=== PATIENT | female | born 1950 | race Caucasian/White ===

== ENCOUNTER → 2023-06-29 12:43 | Outpatient (REF) | payer MEDICARE, OTHER, SELFPAY | LOC: RAD 12:43 | PROVIDERS: ATTENDING PHYSICIAN Surgery Vascular Surgery; REFERRING PHYSICIAN Specialist | DX: Z01.818 Encounter for other preprocedural examination (principal) | CPT/HCPCS: 93985 ==

== ENCOUNTER 2023-07-08 09:33 | Day surgery (SDC) | payer MEDICARE, OTHER, SELFPAY ==
[2023-07-08] VITALS (12 sets, daily range): BP systolic 103–131; BP diastolic 55–82; BMI 28.0
[2023-07-08 10:12] LABS: INR 0.95; PT 12.6 Sec (11.4-14.6)
[2023-07-08 10:13] LABS: APTT 27.4 Sec (23.4-35.0)
[2023-07-08] MEDS: PERIDEX 0.12% ORAL RINSE 15 ML PO (10:36)
[2023-07-08] MEDS: BACTROBAN NASAL 1 GRAM NASAL (10:37)
[2023-07-08 10:43] LABS: Hematocrit 37.2 % (37.0-47.0); Mean Corp Hgb Conc. 32.3 g/dL (33.0-37.0); Mean Corpuscular Hgb 29.3 pg (27.0-31.0); Mean Corpuscular Volume 90.7 fL (81.0-99.0); Platelet Count 254 10^3/uL (130-400); Red Cell Dist. Width 14.3 % (11.5-14.5); White Blood Cell Count 5.9 10^3/uL (4.8-10.8)
[2023-07-08 10:52] LABS: Blood Urea Nitrogen 30 mg/dl (7-17); Calcium 9.9 mg/dl (8.4-10.2); Carbon Dioxide 29 mmol/L (22-30); Chloride 95 mmol/L (98-107); Estimated Creatinine Clearance 11 ml/min; Glucose 96 mg/dl (70-99); Potassium 4.2 mmol/L (3.5-5.1); Sodium 133 mmol/L (135-145); eGFR 15.01
--- NOTE | 2023-07-08 12:00 | W.SUR.PREOP ---
Pre-Operative Surgical Note
-
I have examined this patient prior to the performance of the scheduled procedure.
The patient's condition is unchanged from the time of the current History and
Physical and the patient is able to undergo the scheduled procedure.
--- NOTE | 2023-07-08 13:22 | W.SUR.POST ---
Surgical Immediate Post Op
Note
Pre Op Diagnosis: ESRD
Post Op Diagnosis: ESRD
Procedure Performed: LUE brachiocephalic av fistula creation
Primary Surgeon: Abdirizak
Assist: Maryann PERALTA
Anesthesia: LMA
Estimated Blood Loss: 5cc
Fluids: see anesthesia flow sheet
Drains/Shunts: none
Specimens/Cultures: none
Doppler/Duplex/Angio (Y/N): Y
Complications: none
Operative Findings: Palpable thrill
[2023-07-08] MEDS: DILAUDID 0.25 MG IV (14:07)
--- NOTE | 2023-07-08 16:06 | OR.RPT ---
Operative Report
Operative Report
PROCEDURE DATE: 07/08/2023
Preoperative diagnosis: End-stage renal disease on hemodialysis
Postoperative diagnosis: Same
Procedure: Left upper extremity brachiocephalic arteriovenous fistula creation
Surgeon: Adbirizak
Sole Leveling Machine Operator: RENZO Wolf required for all aspects of procedure including assistance with traction/countertraction, following of suture line, assistance with closure.
Complications: None
Anesthesia: General
Indications for procedure:
72-year-old female with end-stage renal disease on hemodialysis. Referred for permanent AV access creation. Risk/benefits/alternatives of fistula/graft were all fully discussed. Patient understood all wish to proceed.
Description of procedure:
Patient was identified brought to the operating room placed on the table in supine position. After the induction of anesthesia, I performed vein mapping myself with the ultrasound. The basilic vein looks suitable as it did on the preoperative
ultrasound vein mapping. However, under anesthesia the cephalic vein actually looked very reasonable in the upper arm. Therefore I elected to use this vein. After the adequate administration of anesthesia and perioperative antibiotics she was
prepped and draped in the standard surgical fashion. A standard preoperative timeout was undertaken and everybody was in agreement the plan. A transverse incision was made in the proximal volar aspect of the forearm just distal to the antecubital
fossa. This was carried through skin subcutaneous tissue. The extension of the cephalic vein was identified and carefully dissected away from surrounding structures and great care to avoid any injury to structures. An antecubital/deep running
branch was ligated between silk ties and divided. Any other branches were ligated between silk ties and then divided. As such I was able to mobilize a suitable length of cephalic vein. Once I done this I then deepen my dissection in the medial
aspect of the incision site through the fascial layer. The brachial artery was carefully identified and carefully dissected away from surrounding structures take great care to avoid injury to structures. It was a slightly small artery but
reasonable, soft. I passed a vessel loop around proximally and distally. Next I gave the patient 3000 units of intravenous heparin. I then ligated the cephalic vein distally in my field with a silk tie and a clip. I then transected it. I
distended under heparinized saline. It distended very well. I marked the anterior surface under distention to avoid any kinking or twisting. The vein was suitable size but just to be sure I ran a 2.5 mm dilator through which passed without any
difficulty whatsoever. I felt I did not need to run a 3 mm dilator as the 2.5 mm once so easily. Next I tightened my double looped Vesseloops on the artery proximally and distally. I then made an arteriotomy with a Stone blade and extended the
arteriotomy using a Cadet scissor. I spatulated the cephalic vein and sewed an end to side anastomosis using a running 6-0 Prolene suture. Prior to completing and tying down my suture line I backbled and forebled the belkofski artery. Next I
released my bulldog clamp on the vein and then released my Vesseloops on the artery (proximal vessel loop first, then after moment or to the distal vessel loop). There was an excellent thrill in the fistula. There was an excellent Doppler signal
at the wrist in the radial artery. At this point I was very satisfied. I irrigated. I achieved and confirmed full hemostasis. We then closed in layers using 3-0 Vicryl deep dermal layer followed by 4-0 Monocryl subcuticular stitch. Dermabond
was applied. The patient tolerated the procedure well.
== END 2023-07-08 15:30 | disposition home or self-care (01) ==
LOC: CATH 09:33
PROVIDERS: ATTENDING PHYSICIAN Surgery Vascular Surgery
DX: I13.11 Hypertensive heart and chronic kidney disease without heart failure, with stage 5 chronic kidney disease, or end stage renal disease (principal); N18.6 End stage renal disease; Z99.2 Dependence on renal dialysis
CPT/HCPCS: 36821; 80048; 85027; 85610; 85730; 93005

== ENCOUNTER → 2023-08-21 09:59 | Outpatient (REF) | payer MEDICARE, OTHER, SELFPAY | LOC: RAD 09:59 | PROVIDERS: ATTENDING PHYSICIAN Physician Assistant; FAMILY PHYSICIAN Internal Medicine Cardiovascular Disease | DX: I77.0 Arteriovenous fistula, acquired (principal) | CPT/HCPCS: 93990 ==

== ENCOUNTER → 2023-12-09 10:01 | Outpatient (REF) | payer MEDICARE, OTHER, SELFPAY ==
[2023-12-09 10:25] VITALS: BP 116/76; BP_SYST 98
[2023-12-09 10:39] VITALS: BP 129/79; BP_SYST 95
== END ==
LOC: RADI 10:01
PROVIDERS: ATTENDING PHYSICIAN Specialist
DX: Z49.01 Encounter for fitting and adjustment of extracorporeal dialysis catheter (principal); N18.6 End stage renal disease
CPT/HCPCS: 36589

== ENCOUNTER 2023-12-18 10:24 | Emergency (ER) | payer MEDICARE, OTHER, SELFPAY ==
[2023-12-18 10:36] VITALS: BP 138/86
--- NOTE | 2023-12-18 11:22 | ED.GENMED ---
History of Present Illness
General
Chief Complaint: Musculo-Skeletal Complaint
Time Seen by Provider: 12/18/23 10:56
History of Present Illness
History of Present Illness:
73-year-old female presents to the emergency department for evaluation of left heel pain developing over the past 24 to 48 hours. Worse when walking. Denies any falls or trauma.
Past History
Past History
ED Past Medical History: None
Social History
Tobacco: Non-smoker
Alcohol: None
Personal:
Living: with family
Employment: Retired
Family History
Family History: Other (Noncontributory)
Review of Systems
Review of Systems
Allergies reviewed?: Yes
All Other Systems: ROS reviewed and negative except as documented in HPI and ROS
Phy Exam
Physical Exam
Physical Exam:
GEN: Well appearing, NAD, WDWN
HEENT: Oral mucosa moist, no scleral icterus
Cardiac: Regular rate
Lung: No respiratory distress, no tachypnea
MSK: No gross deformity or injuries. Focal tenderness to the left Achilles tendon, pain increases with passive stretch, negative Aguiar test
Skin: Good color, no pallor or jaundice, no rashes
Neuro: AO x3, moves all extremities freely
Psych: Calm, cooperative
Course
Orders/Labs/Results
Orders:
Orders
12/18/23 10:38
Ankle, left 3 view CR [CR Ankle - Left Min 3 Views ] Urgent
Comment:
Reason For Exam: pain
12/18/23 11:11
Ortho Boot Left- Treatment ONCE
Short or tall?: Short
Vital Signs
Initial and Last Documented VS:
Initial Vital Signs
Temp Pulse Resp BP Pulse Ox
98.7 F 103 18 138/86 96
12/18/23 10:36 12/18/23 10:36 12/18/23 10:36 12/18/23 10:36 12/18/23 10:36
Last Documented Vital Signs
Temp Pulse Resp BP Pulse Ox
98.7 F 104 18 134/88 95
12/18/23 10:36 12/18/23 11:45 12/18/23 11:45 12/18/23 11:45 12/18/23 11:45
MDM/Problems Addressed
MDM/Problems Addressed:
X-rays of the left foot unremarkable. Discussed supportive care which is limited due to her kidney disease, will trial a short course of topical anti-inflammatories if she cannot take oral NSAIDs. Do not feel that there would be benefit to oral
steroids. Recommend outpatient podiatry follow-up
*Critical Care Note
Total Time (30-74mins, 75-104mins- exclusive of procedures): Not Applicable
ED Attending Note
-
Portions of this chart may have been created with voice recognition software.� Occasional wrong word or��sound alike� substitutions may have occurred due to the inherent limitations of voice recognition software.
Discharge Plan
Departure
Patient Disposition: Home (Routine Discharge)
Date of Disposition: 12/18/23
Time of Disposition: 11:23
Patient with high blood pressure during this ER visit?: No
Discharge Problem:
Achilles tendinitis, left leg
Instructions: Achilles Tendinopathy Exercises
Prescriptions:
New
diclofenac sodium [Voltaren Arthritis Pain] 1 % gel
2 g topical TID Qty: 100 0RF
No Action
therapeutic multivitamin Tablet
1 tab PO DAILY
sennosides [senna] 8.6 mg Tablet
8.6 mg PO DAILY
omeprazole 20 mg Tablet,Delayed Release (Dr/Ec)
20 mg PO DAILY
docusate sodium 100 mg capsule
100 mg PO DAILY
polyethylene glycol 3350 [Miralax] 17 gram Powder In Packet
17 g PO DAILY
Referrals:
Guevara Infante DPM [Specified Professional Personl] -
Activity Restrictions/Additional Instructions:
Wear the boot at all times when walking
Ice the heel/tendon often
Use the prescribed gel for a maximum of 5 days
Follow up with the e business specialist
Interventions
Interventions:
*Risk Screen - Suicide Last Done: 12/18/23 10:36
*General Assessment Last Done: 12/18/23 10:36
*Neglect/Abuse Screening Last Done: 12/18/23 10:36
ED- Fall Risk Assessment Last Done: 12/18/23 11:50
*ED COVID-19 Vaccine History Last Done: 12/18/23 11:50
*Nursing Disposition Last Done: 12/18/23 11:50
ED-Musculoskeletal Assessment Last Done: 12/18/23 11:13
Discharge Date and Time
Discharge Date/Time: 12/18/23 11:50
Print Language: TURKISH
[2023-12-18 11:45] VITALS: BP 134/88
== END 2023-12-18 11:50 | disposition home or self-care (01) ==
LOC: EMR 10:24
PROVIDERS: EMERGENCY PHYSICIAN Emergency Medicine
DX: M76.62 Achilles tendinitis, left leg (principal)
CPT/HCPCS: 99283; 73610

== ENCOUNTER 2024-04-14 14:24 | Inpatient (IN) | payer MEDICARE, SELFPAY ==
[2024-04-12 11:37] VITALS: BP 124/91
[2024-04-12 11:56] LABS: % Basophils 0.8 % (0-2); % Eosinophils 0.8 % (0-6); % Immature Granulocytes 0.4 % (0-0.5); % Lymphocytes 19.2 % (20.5-51.1); % Monocytes 7.6 % (1.7-9.3); % Neutrophils 71.2 % (42.2-75.2); Absolute Basophils 0.1 10^3/uL (0-0.2); Absolute Eosinophils 0.1 10^3/uL (0-0.7); Absolute Lymphocytes 1.5 10^3/uL (1.2-3.4); Absolute Monocytes 0.6 10^3/uL (0.1-0.6); Absolute Neutrophils 5.4 10^3/uL (1.4-6.5); Hematocrit 46.7 % (37.0-47.0); Hemoglobin 14.5 g/dL (12.0-16.0); Mean Corpuscular Hgb 30.3 pg (27.0-31.0); Mean Corpuscular Volume 97.5 fL (81.0-99.0); Mean Platelet Volume 8.6 fL (7.4-10.4); Nucleated Red Blood Cells % 0 %; Platelet Count 278 10^3/uL (130-400); Red Blood Cell Count 4.79 10^6/uL (4.20-5.40); Red Cell Dist. Width 13.9 % (11.5-14.5); White Blood Cell Count 7.6 10^3/uL (4.8-10.8)
[2024-04-12 12:24] LABS: ALT (SGPT) 14 U/L (0-35); AST (SGOT) 28 U/L (14-36); Albumin 4.4 g/dl (3.5-5.0); Alkaline Phosphatase 79 U/L (38-126); Blood Urea Nitrogen 6 mg/dl (7-17); Calcium 9.5 mg/dl (8.4-10.2); Carbon Dioxide 31 mmol/L (22-30); Chloride 95 mmol/L (98-107); Glucose 96 mg/dl (70-99); Potassium 4.7 mmol/L (3.5-5.1); Sodium 136 mmol/L (135-145); Total Bilirubin 0.9 mg/dl (0.2-1.3); Total Protein 7.4 g/dl (6.3-8.2); eGFR 29.75
[2024-04-12 14:22] VITALS: BP 114/79
--- NOTE | 2024-04-12 16:32 | ED.GENMED ---
History of Present Illness
<Mary Lou Jaeger PA-C - Last Filed: 04/12/24 20:59>
General
Chief Complaint: Swallowing Problem
Source: patient, spouse and family (son at bedside)
Exam Limitations: none
Time Seen by Provider: 04/12/24 15:52
Nursing documentation reviewed up to this point in time: agreed with
History of Present Illness
History of Present Illness:
Patient is a 73-year-old female with history of CKD on dialysis with AV fistula presenting to the emergency department with family for evaluation of difficulty speaking and swallowing. Patient unable to contribute much to history given phonation
difficulty. However�patient's is present and provides majority of history. He reports that the symptoms including dysphagia, dysarthria have been gradually worsening over the past 6 months. She now has very much difficulty speaking and
swallowing both solids and liquids. Patient has lost 25 pounds since December. Patient denies any associated headache, blurry vision, double vision, weakness in extremities, numbness/tingling. Patient is having no difficulties ambulating. Patient
has not been able to correlate any time of day that symptoms are worse. The symptoms were initially thought to be secondary to dialysis. She saw an ENT doctor at the end of February where she had a performed which noted no abnormal findings in the
throat.
No recent viruses or vaccines.
Past History
<Mary Lou Jaeger PA-C - Last Filed: 04/12/24 20:59>
Past History
ED Past Medical History: None
Social History
Tobacco: Non-smoker
Alcohol: None
Personal:
Living: with family
Employment: Retired
Family History
Family History: Other (Noncontributory)
Review of Systems
<Mary Lou Jaeger PA-C - Last Filed: 04/12/24 20:59>
Review of Systems
Allergies reviewed?: Yes
All Other Systems: ROS reviewed and negative except as documented in HPI and ROS
Phy Exam
<Mary Lou Jaeger PA-C - Last Filed: 04/12/24 20:59>
Physical Exam
Physical Exam:
Vitals: Mildly tachycardic, otherwise vital signs stable. Afebrile
General: Thin. Patient is in no acute distress.
Skin: Warm and dry, no rashes or lesions
Head: Normocephalic, atraumatic
Eyes: Sclera nonicteric. EOMs intact. Pupils equal round reactive to light bilaterally. Visual garcia intact. No nystagmus.
Throat: Mildly dry mucous membranes. Normal posterior pharynx. Protecting airway
Neck: Normal ROM, no cervical spine tenderness, no meningismus. Objective strength 5 out of 5 in neck muscles.
Cardiac: Regular rate and rhythm, no murmurs.
Pulm: O2 saturation 99 on room air. Normal respiratory effort, no wheezes, rales, rhonchi heard on exam.
Abdomen: No abdominal tenderness.
Extremities: No evidence of cyanosis or edema. Strength 5 out of 5 in upper and lower extremities. Sensation fully intact.
Neuro: AAOx3. Dysarthria and dysphagia. Follows commands. No facial droop or facial asymmetry. Moving all extremities.
Psychiatric: Normal affect.
Course
<Mary Lou Jaeger PA-C - Last Filed: 04/12/24 20:59>
Orders/Labs/Results
Orders:
Orders
04/12/24 11:47
Complete Blood Count/With Diff Urgent
Comprehensive Metabolic Panel Urgent
04/12/24 16:17
CT Head W/o Iv Contrast Urgent
Comment:
Reason For Exam: dysarthia, dysphagia
04/12/24 16:32
CR Chest - 2 Views Urgent
Comment:
Reason For Exam: dysphagia
04/12/24 19:42
Admit/Transfer Patient As Directed
Co-Sign Provider:
Level of Care: Observation services
Assign to:: Telemetry
Physician / Group: Poncho
Diagnosis: Aphasia / Dysphagia
Reason for Telemetry: CVA/TIA
Date to Stop Telemetry: 04/15/24
Time to Stop Telemetry: 11:00
04/12/24 19:43
PRN Pain Medication Management As Directed
May give lesser potent ordered pain med per pt: Yes
preference::
Protocol:: Medication orders for pain may be administered in a
manner that supports deferring to patient preference
when the pt is:
- Requesting an ordered lesser potent pain medication.
Least to most potent pain medications are defined
as: acetaminophen < NSAID < tramadol < opioids
(morphine, oxycodone, hydromorphone).
- Requesting a lesser dose of the same medication IF
ORDERED.
- Requesting a less intrusive route of administration
if both routes are prescribed by the provider (PO <
IV).
04/12/24 19:44
Code Status As Directed
Resuscitation Status: Full Code
04/15/24 11:00
DC Protocol for Telemetry ONCE
Abnormal Lab Results
04/12/24
11:47
MCHC 31.0 L g/dL
(33.0-37.0)
Lymphocytes % 19.2 L %
(20.5-51.1)
Chloride 95 L mmol/L
(98-107)
Carbon Dioxide 31 H mmol/L
(22-30)
BUN 6 L mg/dl
(7-17)
Creatinine 1.8 H mg/dL
(0.6-1.0)
04/12/24 11:47
04/12/24 11:47
Vital Signs
Initial and Last Documented VS:
Initial Vital Signs
Temp Pulse Resp BP Pulse Ox
97.5 F 107 18 124/91 99
04/12/24 11:37 04/12/24 11:37 04/12/24 11:37 04/12/24 11:37 04/12/24 11:37
Last Documented Vital Signs
Temp Pulse Resp BP Pulse Ox
98.1 F 98 20 124/79 99
04/12/24 14:22 04/12/24 20:02 04/12/24 20:02 04/12/24 20:02 04/12/24 18:57
<Daniele Galvin, DO - Last Filed: 04/12/24 18:59>
Orders/Labs/Results
Orders:
Orders
04/12/24 11:47
Complete Blood Count/With Diff Urgent
Comprehensive Metabolic Panel Urgent
04/12/24 16:17
CT Head W/o Iv Contrast Urgent
Comment:
Reason For Exam: dysarthia, dysphagia
04/12/24 16:32
CR Chest - 2 Views Urgent
Comment:
Reason For Exam: dysphagia
04/12/24 19:42
Admit/Transfer Patient As Directed
Co-Sign Provider:
Level of Care: Observation services
Assign to:: Telemetry
Physician / Group: Poncho
Diagnosis: Aphasia / Dysphagia
Reason for Telemetry: CVA/TIA
Date to Stop Telemetry: 04/15/24
Time to Stop Telemetry: 11:00
04/12/24 19:43
PRN Pain Medication Management As Directed
May give lesser potent ordered pain med per pt: Yes
preference::
Protocol:: Medication orders for pain may be administered in a
manner that supports deferring to patient preference
when the pt is:
- Requesting an ordered lesser potent pain medication.
Least to most potent pain medications are defined
as: acetaminophen < NSAID < tramadol < opioids
(morphine, oxycodone, hydromorphone).
- Requesting a lesser dose of the same medication IF
ORDERED.
- Requesting a less intrusive route of administration
if both routes are prescribed by the provider (PO <
IV).
04/12/24 19:44
Code Status As Directed
Resuscitation Status: Full Code
04/15/24 11:00
DC Protocol for Telemetry ONCE
Abnormal Lab Results
04/12/24
11:47
MCHC 31.0 L g/dL
(33.0-37.0)
Lymphocytes % 19.2 L %
(20.5-51.1)
Chloride 95 L mmol/L
(98-107)
Carbon Dioxide 31 H mmol/L
(22-30)
BUN 6 L mg/dl
(7-17)
Creatinine 1.8 H mg/dL
(0.6-1.0)
04/12/24 11:47
04/12/24 11:47
Vital Signs
Initial and Last Documented VS:
Initial Vital Signs
Temp Pulse Resp BP Pulse Ox
97.5 F 107 18 124/91 99
04/12/24 11:37 04/12/24 11:37 04/12/24 11:37 04/12/24 11:37 04/12/24 11:37
Last Documented Vital Signs
Temp Pulse Resp BP Pulse Ox
98.1 F 98 20 124/79 99
04/12/24 14:22 04/12/24 20:02 04/12/24 20:02 04/12/24 20:02 04/12/24 18:57
<Mary Lou Jaeger PA-C - Last Filed: 04/12/24 20:59>
MDM/Problems Addressed
Differential Diagnosis Includes:
Not limited to: Myasthenia gravis, multiple sclerosis, brain mass, CVA, etc.
MDM/Problems Addressed:
73-year-old female with CKD on dialysis presenting with progressively worsening dysphagia and dysarthria over the past 6 months. Difficulties swallowing food/liquids and weight loss of 25 pounds. No fevers or chills. No extremity
weakness/numbness. No visual changes. No shortness of breath/difficulty breathing. Patient mildly tachycardic, otherwise stable vital signs. Physical exam as above. Patient thin-appearing although in no apparent distress. Normal posterior
pharynx. Extremity strength 5 out of 5 bilaterally with normal sensation. Patient with difficulty speaking although no other focal neurologic deficits noted. Screening labs obtained in triage reviewed without any clinically significant
abnormalities. Renal insufficiency stable. Concern for central process including myasthenia gravis, multiple sclerosis, brain lesion, etc. Less likely CVA given gradual progression of symptoms. Will check chest x-ray and head CT. Patient will
require admission.
Update: Chest x-ray and head CT without any acute findings. Concern for myasthenia gravis. Patient without any respiratory distress, protecting airway. Patient will be admitted for neuroconsult likely MRI. Patient accepted to hospitalist service
in stable condition.
Chronic conditions affecting care:
CKD on dialysis
Acute Exacerbation and/or Progression of Chronic Illness:
N/A
<Mary Lou Jaeger PA-C - Last Filed: 04/12/24 20:59>
*Radiology
Radiology exam reviewed: preliminary read by ED provider (Chest x-ray reviewed by fl-no acute findings) and radiology read reviewed
*Pulse Oximetry
Patient hypoxic: no
*EKG
Interpreted by ED Provider?: NA
*Filing And Polishing Supervisor Interpretation
Rate: Filing And Polishing Supervisor- N/A
*Critical Care Note
Total Time (30-74mins, 75-104mins- exclusive of procedures): Not Applicable
<Mary Lou Jaeger PA-C - Last Filed: 04/12/24 20:59>
Patient Management
Discussion with other providers: Dispensary Technician
Escalation/DeEscalation of care consider admission/obs:
Admit for neurology consult, MRI
ED Attending Note
<Mary Lou Jaeger PA-C - Last Filed: 04/12/24 20:59>
-
Portions of this chart may have been created with voice recognition software.� Occasional wrong word or��sound alike� substitutions may have occurred due to the inherent limitations of voice recognition software.
<Daniele Galvin DO - Last Filed: 04/12/24 18:59>
ED Attending Note
Patient seen and examined by attending physician: Yes
I performed a history and physical exam of patient and discussed management with resident, I reviewed resident's note and agree with documented findings and plan of care.: Yes
ED Attending Note:
I have reviewed and agree with history and treatment plan by Mary Lou Jaeger. My exam revealed
Physical Exam
General: Thin, afebrile
Neck: supple. no meningeal signs. normal posterior pharynx
Heart: s1/s2 tachycardia, no murmur. equal radial
pulses.
HEENT: Pupils equal round reactive to light, EOMI
Lungs: no acute respiratory distress. clear bilaterally
Abdomen: normal bowel sounds. not tender. no CVAT
Neuro: alert and oriented. no focal neurological deficits cranial nerves II through XII intact, difficulty speaking
Skin: no rash
Psychiatric: well kept. interactive and cooperative
Extremities: no edema. no calf tenderness. negative homans. good distal pulses
73-year-old female with concern for myasthenia gravis. Airway protected, respiratorily stable. Admit for further evaluation
Discharge Plan
Departure
Patient Disposition: Admit
Date of Disposition: 04/12/24
Time of Disposition: 19:08
Presentation/result/management discussed w/ accepting MD/DO: Hospitalist
Discharge Problem:
Dysphagia, Dysarthria, Weakness
Interventions
Interventions:
*Risk Screen - Suicide Last Done: 04/12/24 11:37
*General Assessment Last Done: 04/12/24 11:37
*Neglect/Abuse Screening Last Done: 04/12/24 11:37
*ED COVID-19 Vaccine History Last Done: 04/12/24 18:06
ED-EENT Assessment Last Done: 04/12/24 18:57
CB-Ughbdu-Dagzbrcnqr Assessment Last Done: 04/12/24 18:57
ED- Pulmonary Assessment Last Done: 04/12/24 18:57
ED- Neurological Assessment Last Done: 04/12/24 18:57
[2024-04-12 18:57] VITALS: BP 120/70
--- NOTE | 2024-04-12 19:54 | HPS.HSE ---
Family Physician
-
Family Physician: NOT KNOW UNKNOWN - PT DOES
Chief Complaint
-
Trouble speaking / swallowing
History of Present Illness
Patient is a 73y F with PMH significant for ESRD on HD who presents to ED complaining of difficulty swallowing and speaking that has been ongoing / progressive x several months. History obtained from patient and her at the bedside.
Patient able to answer questions and follow commands - though speech is soft and obviously takes some effort to produce. She reports trouble with speech and difficulty swallowing for > 6 months. She has lost about 40# over that time. She is able
to eat very little and admits to occasional choking. Patient denies any associated vision changes, numbness / weakness, etc. She states that her symptoms have gradually progressed over the past several months.
She was seen and evaluated by ENT here at and had reportedly unremarkable physical examination. She was advised to see Neurology in consult.
Patient has had difficulty obtaining a timely appointment and - with worsening symptoms and trouble tolerating POs - presented to the ED this evening for further evaluation.
Medical History
Past Medical History
Past Medical History: Reports Other
Additional Past Medical History:
ESRD on HD
Hypertension
Anemia of Chronic Disease
Bladder Prolapse
DDD / Chronic Back Pain
Past Surgical History: Reports Other
Additional Past Surgical History:
LUE AVF
Tubal Ligation
HD Cath Placement / Removal
Pessary Placement
Social History
Tobacco: Non-smoker
Alcohol: None
Drug: None
Personal:
Living: With Family
Family History
Family History: Other (Father: Lung Cancer Mother: Pancreatic Cancer, HTN)
Allergies / Home Medications
Allergies reflects when Allergies were last updated in [employer].
Home Medications with original date entered in [employer]
Allergy/Medication List:
Allergies
Allergy/AdvReac Type Severity Reaction Status Date / Time
No Known Allergies Allergy Verified 04/12/24 11:37
Home Medications
omeprazole 20 mg tablet,delayed release 20 mg PO DAILY 07/02/23
sennosides 8.6 mg tablet (senna) 8.6 mg PO DAILY 07/02/23
Review of Systems
-
History Source: Patient and Family
A 12 point ROS was completed and negative except as noted: Yes
Constitutional: Reports Weight Loss and Fatigue; Denies Fever or Chills
EENT: Reports Other (Trouble swallowing / trouble speaking.); Denies Sore Throat or Mouth Pain
Respiratory: Denies Cough or Trouble Breathing
Cardiac: Denies Chest Pain or Palpitations
Abdomen/GI: Reports Constipated; Denies Abdominal Pain, Nausea, Vomiting or Diarrhea
: Denies Dysuria, Frequency or Flank Pain
Neurological: Denies Dizzy, Headache, Weakness or Numbness
Psych: Denies Depression or Anxiety
Physical Exam
Vital Signs
Vital Signs
Temp Pulse Resp BP Pulse Ox
98.1 F 101 18 120/70 99
04/12/24 14:22 04/12/24 18:57 04/12/24 19:25 04/12/24 18:57 04/12/24 18:57
Physical Exam
General: Other (73y F in no acute distress.)
HEENT: Moist mucous membranes and PERRLA
Respiratory: Clear; No Wheezes, Rales or Rhonchi
Cardiac: S1/S2 and Regular Rhythm; No Murmur
GI: Soft, Non Tender, Non Distended and Normal Bowel Sounds
Musculoskeletal: No Clubbing, No Cyanosis and No Edema
Neuro: AO x 3 and Other (Soft, halting speech. Visible effort with speech / swallowing. Limb strength intact / symmetric.)
Laboratory Results
-
04/12/24 11:47
04/12/24 11:47
Laboratory Results
Total Bilirubin 0.9 mg/dl (0.2-1.3) 04/12/24 11:47
AST 28 U/L (14-36) 04/12/24 11:47
ALT 14 U/L (0-35) 04/12/24 11:47
Alkaline Phosphatase 79 U/L (38-126) 04/12/24 11:47
Impression/Plan
-
A/P: Patient is a 73y F with PMH significant for ESRD on HD who presents to ED complaining of speech difficulty and swallow difficulty x 6 months.
Aphasia
Dysphagia
- Observe overnight for further evaluation and treatment.
- Symptoms progressive x months and associated with weight loss / poor nutrition.
- Myasthenia seems high on differential and will check Abs.
- Neurology evaluation for additional recommendations.
- If gadolinium enhanced imaging is recommended - would be of benefit to coordinate with HD schedule.
- Formal Speech / swallow evaluation. PT / OT evals.
- Follow for any new / worsening symptoms.
ESRD on HD
- Stable. HD T-H-Sat with no recent issues.
- Nephrology consulted for HD needs during stay.
- Patient not on typical HD med regimen including phos binders, statin, etc...
DVT Prophylaxis: SCDs
Code Status: Full
[2024-04-12 20:02] VITALS: BP 124/79
--- NOTE | 2024-04-12 20:55 | W.CON.NEPH ---
Consultation
-
Date/Time Consultation Requested: April 12, 2024 at 8 PM
Date/Time Consultation Performed: April 12, 2024 at 9 PM
Requesting Provider: Carlos Isaac
Performing Provider: Dr. Jeff Goldsmith DO
Reason for Consultation: esrd
Medical History
-
Chief Complaint: difficulty swallowing
History of Present Illness:
73-year-old female with history of CKD on dialysis with AV fistula presenting to the emergency department with family for evaluation of difficulty speaking and swallowing. this is been an ongoing issue rule along with the difficulty speaking and no
phonation. She was seen by ENT no abnormal pathology is found. She was suggested by my associate at dialysis today is to come to the ER. She continues to lose weight with decreased PO intake.
Real consul for end-stage renal disease.
She was seen in the ER her and her son were at the bedside issue was also obtained from her and as well as my knowledge of the patient or prior to this.
Past Medical History
End-stage renal disease, anemia of chronic disease, reflux,Chronic back pain, hypertension
Social History
Tobacco: Non-Smoker
Drug: None
Family History
Family History: Not Pertinent
Allergies / Home Medications
Allergy/AdvReac Type Severity Reaction Status Date / Time
No Known Allergies Allergy Verified 04/12/24 11:37
�Medication �Instructions �Recorded �Confirmed �Type
omeprazole 20 mg tablet,delayed 20 mg PO DAILY 07/02/23 04/12/24 History
release
sennosides 8.6 mg tablet (senna) 8.6 mg PO DAILY 07/02/23 04/12/24 History
Review of Systems
-
as per HPI difficulty swallowing and speaking. No chest pain shortness of breath nausea vomiting
All other systems: Negative unless noted
Physical Exam
Vital Signs
Vital Signs
Temp Pulse Resp BP Pulse Ox
98.1 F 98 20 124/79 99
04/12/24 14:22 04/12/24 20:02 04/12/24 20:02 04/12/24 20:02 04/12/24 18:57
Lab Results
WBC 7.6 10^3/uL (4.8-10.8) 04/12/24 11:47
RBC 4.79 10^6/uL (4.20-5.40) 04/12/24 11:47
Hgb 14.5 g/dL (12.0-16.0) 04/12/24 11:47
Hct 46.7 % (37.0-47.0) 04/12/24 11:47
Plt Count 278 10^3/uL (130-400) 04/12/24 11:47
Sodium 136 mmol/L (135-145) 04/12/24 11:47
Potassium 4.7 mmol/L (3.5-5.1) 04/12/24 11:47
Chloride 95 mmol/L (98-107) L 04/12/24 11:47
Carbon Dioxide 31 mmol/L (22-30) H 04/12/24 11:47
BUN 6 mg/dl (7-17) L 04/12/24 11:47
Creatinine 1.8 mg/dL (0.6-1.0) H 04/12/24 11:47
eGFR 29.75 04/12/24 11:47
Glucose 96 mg/dl (70-99) 04/12/24 11:47
Calcium 9.5 mg/dl (8.4-10.2) 04/12/24 11:47
Albumin 4.4 g/dl (3.5-5.0) 04/12/24 11:47
Physical Exam
General no acute distress
HEENT no cephalic atraumatic extraocular muscle intact no scleral icterus no JVD neck supple
lungs clear to auscultation bilateral
heart regular S1-S2 positive
abdomen soft nontender positive bowel sounds
extremities no edema pulses present bilateral
Neurologically nonfocal alert and oriented x 3
Skin no lesions no abrasions no petechiae
Psych normal affect no bizarre behavior
Data Reviewed
-
Radiology: Image Personally Visualized and interpreted
Labs: Labs Reviewed by me
Assessment/Plan
-
73-year-old female with history of CKD on dialysis with AV fistula presenting to the emergency department with family for evaluation of difficulty speaking and swallowing.
impression:
ESRD.
Dysphasia.
hypertensive disorders stable.
Weight loss.
.
Plan:
maintain dialysis schedule TTS.
Neurology consult.
consider barium swallow
If further imaging needed including gadolinium studies, it is okay to proceed if using class to gadolinium. it does not require prompt dialysis or consecutive treatments for Clearance.
next dialysis will be
Epo with dialysis to Maintain hemoglobin greater than 10
[2024-04-12 21:47] VITALS: BP 133/89
[2024-04-12 22:40] LABS: TSH Reflex To Free T4 4.61 uIU/ml (0.47-4.68)
[2024-04-13] VITALS (8 sets, daily range): BP systolic 117–143; BP diastolic 69–82; PULSE 102–121; O2SAT 93; BMI 22.0; BMI 21.0
[2024-04-13 04:53] LABS: Hematocrit 44.1 % (37.0-47.0); Hemoglobin 14.1 g/dL (12.0-16.0); Mean Corpuscular Hgb 30.5 pg (27.0-31.0); Mean Corpuscular Volume 95.5 fL (81.0-99.0); Mean Platelet Volume 10.2 fL (7.4-10.4); Platelet Count 260 10^3/uL (130-400); Red Blood Cell Count 4.62 10^6/uL (4.20-5.40); White Blood Cell Count 7.5 10^3/uL (4.8-10.8)
[2024-04-13 06:14] LABS: ALT (SGPT) 10 U/L (0-35); AST (SGOT) 25 U/L (14-36); Albumin 3.8 g/dl (3.5-5.0); Alkaline Phosphatase 62 U/L (38-126); Blood Urea Nitrogen 15 mg/dl (7-17); Calcium 9.3 mg/dl (8.4-10.2); Carbon Dioxide 30 mmol/L (22-30); Chloride 96 mmol/L (98-107); Direct Bilirubin 0.1 mg/dl (0.0-0.4); Estimated Creatinine Clearance 11 ml/min; Glucose 83 mg/dl (70-99); Magnesium 1.9 mg/dl (1.6-2.3); Phosphorus 3.7 mg/dl (2.5-4.5); Sodium 137 mmol/L (135-145); Total Bilirubin 0.8 mg/dl (0.2-1.3); Total Protein 6.4 g/dl (6.3-8.2); eGFR 17.51
[2024-04-13] MEDS: PROTONIX PO ×2 (08:53→09:13)
[2024-04-13 08:58] LABS: Glycohemoglobin (HgbA1c) 5.3 % (4.0-5.6)
--- NOTE | 2024-04-13 09:24 | W.PN.HOSP.TC ---
Today's Communication/Plan
-
see plan
Assessment / Plan
Assessment / Plan
Impression:
Presentation with worsening aphasia and dysphagia as well as weight loss over the last 5 6 months
Aspiration risk
Other conditions:
End-stage renal disease on hemodialysis since 04/22
Reported nephrotic range proteinuria at the time of initiation of hemodialysis.
GERD.
History of COVID-19 infection.
History of chronic anemia.
Plan:
Aphasia dysphagia with progressive weight loss.
Reasonable concern for myasthenia gravis, occult malignancy not limited to thymoma. Paraneoplastic syndrome, ALS
Serologic workup including acetylcholine receptor antibody, CPK, inflammatory markers.
CT scan of the chest abdomen and pelvis
MRI of the brain (a CT scan of the head with no acute abnormalities)
Dysphagia with aspiration risk
Speech and swallow evaluation including VSE.
GI evaluation for alternative feeding options
End-stage renal disease on hemodialysis since 04/22
Nephrology consultation.
HD schedule TTS.
Anticipated Discharge: > 48 hours
Subjective/Interval History
-
Date of Service: April 13, 2024
Objective Data
-
Labs:
Laboratory Results
04/13/24 04/13/24
04:33 05:35
WBC 7.5
Hgb 14.1
Hct 44.1
Plt Count 260
Sodium Cancelled 137
Potassium Cancelled 5.0
Chloride Cancelled 96 L
Carbon Dioxide Cancelled 30
BUN Cancelled 15
Creatinine Cancelled 2.8 H
Glucose Cancelled 83
Calcium Cancelled 9.3
Total Bilirubin Cancelled 0.8
AST Cancelled 25
ALT Cancelled 10
Alkaline Phosphatase Cancelled 62
Vital Signs:
Vital Signs
Temp Pulse Resp BP Pulse Ox
97.6 F 84 24 120/79 98
04/13/24 05:38 04/13/24 07:00 04/13/24 07:00 04/13/24 07:00 04/13/24 00:57
Physical Exam
-
General: Well Developed and No Apparent Distress
HEENT: Normocephalic, Atraumatic and Moist Mucous Membranes
Respiratory: Clear to Auscultation
Cardiac: Regular Rhythm and S1/S2; Negative Murmur, Rub or Gallop
GI: Soft, Nontender, Nondistended and Normal Bowel Sounds; Negative Organomegaly
Rectal: Deferred by Provider
Musculoskeletal: No Clubbing, No Cyanosis and No Edema
Skin: Negative Rash
Neuro: Awake, Alert, Oriented, AO x 3, Nonfocal/Grossly Intact and Slurred Speech
--- NOTE | 2024-04-13 09:43 | PTOTSP ---
Speech Therapy Evaluation:
Pt exhibits clinical signs of oropharyngeal dysphagia as characterized by occasional anterior loss of liquids, brief oral holding of liquids, reduced oral coordination, suspect impaired oral containment, and overt s/sx of aspiration at bedside.
Suspect acute swallow dysfunction of unknown etiology at this time as pt is undergoing further workup. 3oz swallow screen not completed on this date secondary to concern for aspiration when taking consecutive sips. CXR without evidence of PNA. WBC
WNL.
Pt also demonstrates mostly unintelligible speech 2/2 breathy, weak, and hypophonic voice. Pt able to functionally communicate throughout evaluation via attempted verbalizations, gestures, and writing with pen and paper. Pt reportedly seen by ENT in
Feb. 2023 with no abnormal findings. Would benefit from ongoing assessment.
Recommend:
1. Continue NPO
2. Medications non-oral
3. VFSS to evaluate oropharyngeal function to determine the safest least restrictive for optimal nutrition/hydration.
4. Oral care 3x/daily
5. CORE FILER to follow
--- NOTE | 2024-04-13 11:26 | CON.NEURO ---
Consultation
Order
Date of Consultation: 04/13/24
Requesting Provider: Carlos Isaac DO
Reason for Consult: Dysphagia
Neurology Consultation Note.
HPI: This is a 73-year-old woman who presented to [facility] on 04/12/[facility]24 with bulbar symptoms. According to the patient she has had 6 months of progressive nonfluctuating dysarthria and dysphagia. No reports of visual, motor or
cognitive symptoms. There is no family history of dementia or motor neuron disease.
Ms. Lang has been using pur�ed consistency of solids over the last 3 months. She has lost about 5 kg over the last several months.
ER VS: 124/91, 107, afebrile.
EKG: Pending.
PDMP: No prescribed medication
Labs: Normal glucose, sodium, calcium, LFTs, TSH, WBCs, creatinine�1.8�2.8, hemoglobin A1c�5.3,
CT head wo contrast-diffuse mild atrophy
PMH: HTN, CKD
PSH: Bladder lift, tubal ligation, LUE brachiocephalic AVF
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
FH: Pancreatic and lung cancer.
All:NKDA
ROS: Constitutional: Negative. Negative for chills, fever and unexpected weight change.
HENT: Positive for dysphagia
Eyes: Negative. Negative for photophobia, pain and visual disturbance.
Respiratory: Negative for cough, shortness of breath.
Cardiovascular: Negative for chest pain, palpitations and leg swelling.
Gastrointestinal: Positive for weight loss, sialorrhea
Endocrine: Negative. Negative for cold intolerance.
Genitourinary: Negative for dysuria, flank pain and urgency.
Musculoskeletal: Positive for neck pain
Skin: Negative for rash.
Allergic/Immunologic: Negative. Negative for immunocompromised state.
Neurological: Positive for dysarthria
Psychiatric/Behavioral: Negative for behavioral problems, confusion and hallucinations.
General: Well developed. In no acute distress.
Cardio: Regular rate and rhythm without murmur. Extremities are without cyanosis or edema.
Neuro:
Mental Status: Alert, oriented to person, place, and date. Normal attention and recall. Good fund of knowledge. Follows complex requests across the midline. Comprehension, naming, and repetition intact. Immediaterecall 3/3.
Cranial Nerves: Pupils are equally round and reactive to light. EOMs full. Visual garcia full to confrontation. No ptosis. No nystagmus. V1-V3 intact to light touch and pinprick bilaterally, symmetric. Face symmetric. Unable to whistle.
Normal hearing AU. The palate elevated well. SCMs and traps 5/5. Bilateral tongue atrophy and fasciculations severe dysarthria/dysphonia.
Motor: Normal bulk and tone. No pronator or arm drift. Strength 5/5 throughout, except for neck flexors and extensors 4-/5, L EHL 4/5. no clonus.
Reflexes: 3+ throughout the upper extremities and knees 3+/2 . 2/2 in AJs. Planta positive Rebecca's on the left r responses flexor bilaterally.
Sensory: Normal vibration and JPS.
Coordination: No dysmetria or tremor.
Gait: deferred
Assessment and Plan:
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 Differential diagnosis includes multifocal motor neuropathy, SMA, inflammatory myopathy, MG.
II. Dysarthria
III. Dysphagia
-Aspiration precautions
-NPO
-Dysphagia evaluation
-NCS/EMG including paraspinals and tongue EMG
-Please check CK, ESR, CRP, SHARIF, B12, NTG M1 antibodies, SPEP/IF
-DVT prophylaxis
I personally reviewed all radiology and labs along with past medical records pertinent to current medical problems. Total time spent in patient care is 60 minutes.
Thank you for allowing us to participate in the care of this patient. We will continue to follow. Please do not hesitate to contact us with any questions or concerns.
Subjective/Objective
Subjective Data
Date of Service: April 13, 2024
Objective Data
Vital Signs
Temp Pulse Resp BP Pulse Ox
36.4 C 84 24 120/79 98
04/13/24 05:38 04/13/24 07:00 04/13/24 07:00 04/13/24 07:00 04/13/24 00:57
Lab Results
04/13/24 04:33
04/13/24 05:35
Sodium 137 mmol/L (135-145) 04/13/24 05:35
Potassium 5.0 mmol/L (3.5-5.1) 04/13/24 05:35
BUN 15 mg/dl (7-17) 04/13/24 05:35
Glucose 83 mg/dl (70-99) 04/13/24 05:35
Calcium 9.3 mg/dl (8.4-10.2) 04/13/24 05:35
Phosphorus 3.7 mg/dl (2.5-4.5) 04/13/24 05:35
Patient Allergies
No Known Allergies Allergy (Verified 04/12/24 11:37)
Medications
-
Active Medications
Generic Name Dose Route Start Last Admin
Trade Name Freq PRN Reason Stop Dose Admin
Acetaminophen 650 mg 04/12/24 21:31
Acetaminophen 325 Mg Tablet PO 05/10/24 21:30
Q4HPRN PRN
Mild Pain / Temp > 101
Pantoprazole Sodium 40 mg 04/13/24 08:00 04/13/24 09:13
Pantoprazole 40 Mg Delayed Release Tablet PO 05/11/24 07:59 Not Given
DAILY LIZETH
Sennosides 8.6 mg 04/13/24 08:00 04/13/24 09:13
Sennosides (Senokot) 8.6 Mg Tablet PO 05/11/24 07:59 Not Given
DAILY LIZETH
Home Medications
�Medication �Instructions �Recorded
omeprazole 20 mg tablet,delayed 20 mg PO DAILY 07/02/23
release
sennosides 8.6 mg tablet (senna) 8.6 mg PO DAILY 07/02/23
Vital Signs and Labs
-
Vital Signs and Labs:
Vital Signs
Temp Pulse Resp BP Pulse Ox
36.4 C 84 24 120/79 98
04/13/24 05:38 04/13/24 07:00 04/13/24 07:00 04/13/24 07:00 04/13/24 00:57
Lab Results
04/13/24 04:33
04/13/24 05:35
Sodium 137 mmol/L (135-145) 04/13/24 05:35
Potassium 5.0 mmol/L (3.5-5.1) 04/13/24 05:35
BUN 15 mg/dl (7-17) 04/13/24 05:35
Glucose 83 mg/dl (70-99) 04/13/24 05:35
Calcium 9.3 mg/dl (8.4-10.2) 04/13/24 05:35
Phosphorus 3.7 mg/dl (2.5-4.5) 04/13/24 05:35
Medications
-
Medications:
Generic Name Dose Route Start Last Admin
Trade Name Freq PRN Reason Stop Dose Admin
Acetaminophen 650 mg 04/12/24 21:31
Acetaminophen 325 Mg Tablet PO 05/10/24 21:30
Q4HPRN PRN
Mild Pain / Temp > 101
Pantoprazole Sodium 40 mg 04/13/24 08:00 04/13/24 09:13
Pantoprazole 40 Mg Delayed Release Tablet PO 05/11/24 07:59 Not Given
DAILY LIZETH
Sennosides 8.6 mg 04/13/24 08:00 04/13/24 09:13
Sennosides (Senokot) 8.6 Mg Tablet PO 05/11/24 07:59 Not Given
DAILY LIZETH
Home Medications
-
Home Medications
omeprazole 20 mg tablet,delayed release 20 mg PO DAILY 07/02/23
sennosides 8.6 mg tablet (senna) 8.6 mg PO DAILY 07/02/23
[2024-04-13 11:56] LABS: Erythrocyte Sed Rate 7 mm/hour (0-20)
--- NOTE | 2024-04-13 12:42 | PTOTSP ---
Speech therapy VSE:
Pt presents with mild oral and moderate-severe pharyngeal stage dysphagia. Silent aspiration observed with thin liquids via cup, thin liquids via cup with a chin tuck, mildly thick liquids via cup, and mildly thick liquids via cup with a chin tuck.
Varying degrees of penetration observed with mildly thick liquids and moderately thick liquids. Unable to assess puree d/t reported difficulty and subsequent expectoration. Etiology of swallowing is felt to be due to acute medical illness of unknown
etiology at this time.
Recommend:
1. NPO
2. Consideration of non-oral means of nutrition given high aspiration risk and concern for nutritional status
3. Medications non-oral route
4. Initiate ARHP via ice chips following thorough oral care and with RN supervision
5. Oral care 3x/daily
6. ST to follow. Consideration of therapeutic trials of moderately thick liquids via tsp and thinner puree (apple sauce, yogurt)
--- NOTE | 2024-04-13 12:44 | CON.GI ---
Addendum entered and electronically signed by Verito Goodman DO 04/13/24 16:23:
The patient was seen and examined by me independently in collaboration with the nurse practitioner.
Past medical history/social history/medications/allergies/family history reviewed.
Lab data and imaging data reviewed.
Lizzy Armijo is a 73 y.o. female with pmhx ESRD on HD who presents with her family for failure to thrive with a 40 lb unintentional weight loss and dysphagia and dysarthria. GI consulted for enteral nutrition due to swallowing difficulties.
Neurologic workup ongoing at this time, possible neuromuscular d/o? Discussed with family that it is premature to place a PEG tube given we are unsure what her diagnosis/treatment plan is, but certainly for now, plan for DHT for nutrition.
Patient going for MRI, will plan to place DHT following study in AM. Depending on workup, GI is more than happy to place a feeding tube, if deemed medically necessary.
Original Note:
Consultation
-
Date/Time Consultation Requested: 04/13/24 1230
Date/Time Consultation Performed: 04/13/23 1245
Requesting Provider: Logan Feliciano MD
Performing Provider: KATHRYN Cespedes, Jen Goodman DO
Reason for Consultation: malnutrition eval for peg
Medical History
Chief Complaint / HPI
Chief Complaint: dysphagia, Wt loss, speech difficulty
History of Present Illness:
Pt is a 73yo with hx ESRD, HTN, uterine prolapse, chronic anemia, DDD with chronic back pain with progressive decline with difficulty swallowing and speaking with weight loss up to 40 lbs. Pt was seen by speech therapy today and VSE completed with
mild oral and moderate to severe pharyngeal dysphagia recommended NPO. She is also in current work up with neurology of etiology of symptoms. In review with patient she also admits to progressive neck/back pain, GERD with Omeprazole use and
constipation. On admission CT completed with no acute malignancies and large amount of fecal material in region of rectum.
Pt otherwise denies odynophagia, nausea, vomiting, abdominal pain, diarrhea, or rectal bleeding. No hx EGD or colonoscopy in past.
Past Medical History
Past Medical History: HTN, Renal Failure (CKD on HD) and Other (anemia, pulm edema, uterine prolapse, DDD chronic back pain)
Past Surgical History: Gynecological (tubal ) and Other (AV fistula )
Social History
Tobacco: Non-Smoker
Alcohol: Occasional
Drug: None
Personal:
Living: With Family
Employment: Retired
Family History
Family History: Other (denies hx GI cancers)
Allergies / Home Medications
g
Allergy/AdvReac Type Severity Reaction Status Date / Time
No Known Allergies Allergy Verified 04/12/24 11:37
�Medication �Instructions �Recorded
omeprazole 20 mg tablet,delayed 20 mg PO DAILY 07/02/23
release
sennosides 8.6 mg tablet (senna) 8.6 mg PO DAILY 07/02/23
Review of Systems
-
History Source: Patient and Family
Constitutional: Reports Weight Loss and Fatigue
EENT: Reports Other (severe dysphagia, and speech difficulty )
Respiratory: Reports No Symptoms
Cardiac: Reports No Symptoms
Abdomen/GI: Reports Constipated
: Reports No Symptoms
Musculoskeletal: Reports No Symptoms
Skin: Reports No Symptoms
Neurological: Reports Weakness
Endocrine: Reports No Symptoms
Hematologic/Lymphatic: Reports No Symptoms
Vital Signs
Temp Pulse Resp BP Pulse Ox
97.6 F 84 24 120/79 98
04/13/24 05:38 04/13/24 07:00 04/13/24 07:00 04/13/24 07:00 04/13/24 00:57
Physical Exam
Exam
General: Well Developed, Well Nourished and No Apparent Distress
HEENT: Normocephalic and Anicteric
Respiratory: Clear
Cardiac: Regular Rhythm
GI: Soft, Non Tender and Non Distended
Musculoskeletal: No Clubbing and No Cyanosis
Skin: Warm and Dry
Neuro: Awake, Alert and Other (difficulty with speech but good strength in all extremities )
Psych: Calm
Results
WBC 7.5 10^3/uL (4.8-10.8) 04/13/24 04:33
Hgb 14.1 g/dL (12.0-16.0) 04/13/24 04:33
Hct 44.1 % (37.0-47.0) 04/13/24 04:33
MCV 95.5 fL (81.0-99.0) 04/13/24 04:33
Plt Count 260 10^3/uL (130-400) 04/13/24 04:33
Absolute Neuts (auto) 5.4 10^3/uL (1.4-6.5) 04/12/24 11:47
Sodium 137 mmol/L (135-145) 04/13/24 05:35
Potassium 5.0 mmol/L (3.5-5.1) 04/13/24 05:35
Chloride 96 mmol/L (98-107) L 04/13/24 05:35
Carbon Dioxide 30 mmol/L (22-30) 04/13/24 05:35
BUN 15 mg/dl (7-17) 04/13/24 05:35
Creatinine 2.8 mg/dL (0.6-1.0) H 04/13/24 05:35
Calcium 9.3 mg/dl (8.4-10.2) 04/13/24 05:35
Total Bilirubin 0.8 mg/dl (0.2-1.3) 04/13/24 05:35
AST 25 U/L (14-36) 04/13/24 05:35
ALT 10 U/L (0-35) 04/13/24 05:35
Alkaline Phosphatase 62 U/L (38-126) 04/13/24 05:35
Diagnostic Image Results:
04/13/24 CT Chest/abd/pel W Iv Cont
IMPRESSION: No evidence of acute nor malignant pathology of the chest, abdomen and pelvis identified.
Mild bilateral renal atrophy.
Large amount of fecal material in the region of the rectum. Impaction cannot be excluded
Prior GI Procedures:
EGD: none
Colonoscopy: none
Assessment / Plan
-
Pt is a 73yo with hx ESRD, HTN, uterine prolapse, chronic anemia, DDD with chronic back pain with progressive decline with difficulty swallowing and speaking with weight loss up to 40 lbs. Pt was seen by speech therapy and VSE completed with mild
oral and moderate to severe pharyngeal dysphagia recommended NPO. She is also in current work up with neurology of etiology of symptoms. In review with patient she also admits to progressive neck/back pain, GERD with Omeprazole use and
constipation. On admission CT completed with no acute malignancies and large amount of fecal material in region of rectum.
-dysphagia/speech difficulty
-failure to thrive
-wt loss
-constipation
-neck pain worse with movement
-severe calorie malnutrition
other med problems:
-ESRD
-uterine prolapse
PLAN:etiology of symptoms related to neurologic etiology with work up in progress vs other
for MRI brain this afternoon
if work up neg consider MRI neck with increased pain with movement on exam
reviewed with patient and family will place DHT in AM after MRI completed
monitor symptoms with neuro work up if improving consider diet advancement vs reviewed with family and pt if not improving will need to consider peg
noted increased stool in imaging. Will add suppository then enema later today after MRI
will add dietary consult for tube feed recs
-
-
Thank you for consultation and allowing me to participate in the patient's care. Please call the [facility] GI physician during the after hours with any questions or concerns.
--- NOTE | 2024-04-13 14:21 | W.PN.NEPH.PH ---
Today's Communication / Plan
-
Dialysis tomorrow
Assessment/Plan
-
73-year-old female with history of CKD on dialysis with AV fistula presenting to the emergency department with family for evaluation of difficulty speaking and swallowing.
impression:
ESRD.
Dysphasia.
hypertensive disorders stable.
Weight loss.
.
Plan:
maintain dialysis schedule TTS., Dialysis tomorrow, orders provided
Neurology consult for bulbar symptoms
consider barium swallow
If further imaging needed including gadolinium studies, it is okay to proceed if using class to gadolinium. it does not require prompt dialysis or consecutive treatments for Clearance.
Patient for likely feeding tube placement
Epo with dialysis to Maintain hemoglobin greater than 10
-
-
Date of Service: April 13, 2024
CC / HPI / ROS
-
Chief Complaint:
ESRD
History of Present Illness:
ESRD Thursday
N.p.o. due to bulbar symptoms
Blood pressure stable with dry weight
Review of Systems:
No fever
N.p.o. due to swallowing dysfunction
No shortness of breath or chest pain
Labs
-
Labs:
WBC 7.5 10^3/uL (4.8-10.8) 04/13/24 04:33
RBC 4.62 10^6/uL (4.20-5.40) 04/13/24 04:33
Hgb 14.1 g/dL (12.0-16.0) 04/13/24 04:33
Hct 44.1 % (37.0-47.0) 04/13/24 04:33
Plt Count 260 10^3/uL (130-400) 04/13/24 04:33
Sodium 137 mmol/L (135-145) 04/13/24 05:35
Potassium 5.0 mmol/L (3.5-5.1) 04/13/24 05:35
Chloride 96 mmol/L (98-107) L 04/13/24 05:35
Carbon Dioxide 30 mmol/L (22-30) 04/13/24 05:35
BUN 15 mg/dl (7-17) 04/13/24 05:35
Creatinine 2.8 mg/dL (0.6-1.0) H 04/13/24 05:35
eGFR 17.51 04/13/24 05:35
Glucose 83 mg/dl (70-99) 04/13/24 05:35
Calcium 9.3 mg/dl (8.4-10.2) 04/13/24 05:35
Phosphorus 3.7 mg/dl (2.5-4.5) 04/13/24 05:35
Albumin 3.8 g/dl (3.5-5.0) 04/13/24 05:35
Physical Exam
-
Vital Signs:
Vital Signs
Temp Pulse Resp BP Pulse Ox
97.6 F 84 24 120/79 98
04/13/24 05:38 04/13/24 07:00 04/13/24 07:00 04/13/24 07:00 04/13/24 00:57
Cardiovascular:: Regular rate and rhythm
Respiratory:: Bilateral: CTA
Lung Excursion:: Normal
Abdomen:: Nontender and Soft
Bowel Sounds:: Normal
Extremity Edema:: None: Bilateral:
[2024-04-13] MEDS: DULCOLAX 10 MG RECTAL (16:45)
[2024-04-13 17:22] LABS: Creatine Phosphokinase 39 U/L (30-135)
--- NOTE | 2024-04-13 22:57 | PTCARENOTE ---
Pt. rec'd AAOx3 from previous shift, VSS, NSR on the monitor. Able to ambulate from bed to bathroom with minimal assist, generally weak but gait steady. Pt.'s voice hoarse/soft, difficult to understand at times, but gestures appropriately and uses
pen and paper to communicate needs without difficulty. NPO status maintained. Pt. had suppository in the ED prior to arriving on the unit on previous shift, states she did have a moderate BM afterwards, enema not administered or needed as per pt.
Bowel sounds positive, no complaints abd. pain/discomfort. Plan of care for AM discussed with pt., understanding verbalized. Pt. currently sleeping.
[2024-04-14 03:00] VITALS: BP 120/78
--- NOTE | 2024-04-14 04:13 | PTCARENOTE ---
Pt. incontinent of mod sized loose BM
[2024-04-14 06:00] VITALS: BMI 21.0
[2024-04-14 07:34] VITALS: BP 124/81
[2024-04-14 07:50] LABS: Hematocrit 44.8 % (37.0-47.0); Hemoglobin 14.5 g/dL (12.0-16.0)
[2024-04-14] MEDS: PROTONIX PO (07:59)
[2024-04-14 08:12] LABS: Blood Urea Nitrogen 24 mg/dl (7-17); Calcium 9.6 mg/dl (8.4-10.2); Carbon Dioxide 26 mmol/L (22-30); Chloride 95 mmol/L (98-107); Estimated Creatinine Clearance 8 ml/min; Glucose 63 mg/dl (70-99); Potassium 5.2 mmol/L (3.5-5.1); Sodium 136 mmol/L (135-145); eGFR 11.41
--- NOTE | 2024-04-14 09:18 | W.PN.GI.CBS2 ---
Today's Communication / Plan
-
etiology of symptoms related to neurologic etiology with work up in progress vs other
s/p DHT placement this am with some retching and drooping with placement but some gag reflex
improved after placement
at 55 cm confirmed with air insufflation-
check X ray to confirm placement
if placement correct then begin tube feed
t/c neck imaging with increased pain if other neuro work up neg
+ stool overnight with noted constipation on imaging on admission
stop senna as unable to take
will give one dose of miralax later today then PRN as constipation may improved with tube feeds
Assessment / Plan
-
Pt is a 73yo with hx ESRD, HTN, uterine prolapse, chronic anemia, DDD with chronic back pain with progressive decline with difficulty swallowing and speaking with weight loss up to 40 lbs. Pt was seen by speech therapy and VSE completed with mild
oral and moderate to severe pharyngeal dysphagia recommended NPO. She is also in current work up with neurology of etiology of symptoms. In review with patient she also admits to progressive neck/back pain, GERD with Omeprazole use and
constipation. On admission CT completed with no acute malignancies and large amount of fecal material in region of rectum.
04/13 MRI brain no acute intracardial abnormality
-dysphagia/speech difficulty
-failure to thrive
-wt loss
-constipation
-neck pain worse with movement
-severe calorie malnutrition
other med problems:
-ESRD
-uterine prolapse
PLAN:
etiology of symptoms related to neurologic etiology with work up in progress vs other
s/p DHT placement this am with some retching and drooping with placement but some gag reflex
improved after placement
at 55 cm confirmed with air insufflation-
check X ray to confirm placement
if placement correct then begin tube feed
t/c neck imaging with increased pain if other neuro work up neg
+ stool overnight with noted constipation on imaging on admission
stop senna as unable to take
will give one dose of miralax later today then PRN as constipation may improved with tube feeds
Subjective
Subjective
Date of Service: April 14, 2024
pt anxious about DHT placement, 04/13 brown stool
Objective
Data Reviewed
Laboratory Data:
Laboratory Results
04/14/24 07:27
04/14/24 07:27
Laboratory Results
Phosphorus 3.7 mg/dl (2.5-4.5) 04/13/24 05:35
Magnesium 1.9 mg/dl (1.6-2.3) 04/13/24 05:35
Total Bilirubin 0.8 mg/dl (0.2-1.3) 04/13/24 05:35
AST 25 U/L (14-36) 04/13/24 05:35
ALT 10 U/L (0-35) 04/13/24 05:35
Alkaline Phosphatase 62 U/L (38-126) 04/13/24 05:35
Vital Signs and I&O:
Vital Signs
Temp Pulse Resp BP Pulse Ox
97.5 F 103 18 120/78 92
04/14/24 03:00 04/14/24 03:00 04/14/24 03:00 04/14/24 03:00 04/14/24 03:00
I&O
04/13/24 04/14/24 04/15/24
06:59 06:59 06:59
Intake Total 120 / 120
Balance 120 / 120
Physical Exam
Physical Exam
HEENT: Anicteric and Moist mucous membranes
Cardiology: Normal Sinus Rhythm
Pulmonary: Clear
GI: Soft, Non Distended and Non Tender
Extremities: No Edema
Neuro: Other (thick voice )
[2024-04-14 12:00] VITALS: BP 131/83
--- NOTE | 2024-04-14 12:14 | CM ---
Patient seen bedside, initial assessment completed. Patient writing on pad for communication with CM. Patient resides in a single story home with her spouse, one step to enter. Patient denies DME in home, denies VN or SNF history. Patient currently
receiving HD at [facility] in [facility], [facility]. Patient does not have a PCP, has an appointment May 04, unsure of office. Patient pharmacy [facility] [place], confirms prescription coverage. CM discussed VN for patient, declining at this
time. PAGE form reviewed verbally, provided with copy, placed in chart. Patient with DHT placement, watch for tube feeds.
Plan; home with spouse, declining VN at this time- watch for tube feeds set up.
[2024-04-14 13:13] LABS: Lyme Antibody Screen, EIA Negative (Negative)
--- NOTE | 2024-04-14 13:38 | W.PN.NEPH.HD ---
Assessment
-
Patient seen on dialysis
Systolic 115 at current UF
Patient with feeding tube as she is npo due to swallowing dysfunction
Progress Note - Hemodialysis
-
Date of Service: April 14, 2024
Duration: 30 minutes and 3 hours
Potassium Bath: 2
Calcium Bath: 2.5
Opti-Dialyzer: 160
Ultrafiltration: Other (0.5 kg)
Blood Flow: 400
Dialysate Flow: 600
Heparin: None
EPO: None
--- NOTE | 2024-04-14 14:51 | W.PN.UPDATE ---
Update Note
Progress Note Update
Delay in X ray with start of HD but DHT confirmed in stomach -- ok to use for feeds and meds. Will start tube feeds per dietary rec Nepro at 10ml /hr with slow increased by 10 ml q 12 with check BMP, mag, phos x 2 days and replete per medical team
as needed. Will sign off call if we can be of any further assist or if peg needed if continued neurological issues with swallowing. Support given as anxious with current status.
[2024-04-14 16:02] VITALS: BP 118/67
--- NOTE | 2024-04-14 16:12 | W.PN.NEURO.1 ---
Today's Communication / Plan
-
.
Subjective/Objective
Subjective Data
Date of Service: April 14, 2024
Neurology follow-up note.
Ms. Armijo reports no acute complaints. She continues to have dysarthria, dysphagia and sialorrhea.
Hypoglycemic MMM, status post HD.
Labs�negative Lyme, normal CK, ESR, CRP.
PMH: Kyphosis HTN, CKD
PSH: Bladder lift, tubal ligation, LUE brachiocephalic AVF
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
FH: Pancreatic and lung cancer.
All:NKDA
ROS: Constitutional: Negative. Negative for chills, fever and unexpected weight change.
HENT: Positive for dysphagia
Eyes: Negative. Negative for photophobia, pain and visual disturbance.
Respiratory: Negative for cough, shortness of breath.
Cardiovascular: Negative for chest pain, palpitations and leg swelling.
Gastrointestinal: Positive for weight loss, sialorrhea
Endocrine: Negative. Negative for cold intolerance.
Genitourinary: Negative for dysuria, flank pain and urgency.
Musculoskeletal: Positive for neck pain
Skin: Negative for rash.
Allergic/Immunologic: Negative. Negative for immunocompromised state.
Neurological: Positive for dysarthria
Psychiatric/Behavioral: Negative for behavioral problems, confusion and hallucinations.
General: Well developed. In no acute distress. Severe kyphosis
Cardio: Regular rate and rhythm without murmur. Extremities are without cyanosis or edema.
Neuro:
Mental Status: Alert, oriented to person, place, and date. Normal attention and recall. Good fund of knowledge. Follows complex requests across the midline. Comprehension, naming, and repetition intact. Immediaterecall 3/3.
Cranial Nerves: Pupils are equally round and reactive to light. EOMs full. Visual garcia full to confrontation. No ptosis. No nystagmus. V1-V3 intact to light touch and pinprick bilaterally, symmetric. Face symmetric. Unable to whistle.
Normal hearing AU. The palate elevated well. SCMs and traps 5/5. Bilateral tongue atrophy and fasciculations severe dysarthria/dysphonia.
Motor: Normal bulk and tone. No pronator or arm drift. Strength 5/5 throughout, except for neck flexors and extensors 4-/5, L EHL 4/5. no clonus.
Reflexes: 3+ throughout the upper extremities and knees 3+/2 . 2/2 in AJs. Planta positive Rebecca's on the left r responses flexor bilaterally.
Sensory: Normal vibration and JPS.
Coordination: No dysmetria or tremor.
Gait: deferred
Assessment and Plan:
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 Differential diagnosis includes multifocal motor neuropathy, SMA, inflammatory myopathy, MG.
II. Dysarthria
III. Dysphagia
IV. Kyphosis
-Aspiration precautions
-NPO
-Consider glycopyrrolate for symptomatic management of sialorrhea
-NCS/EMG including paraspinals and tongue EMG
-DVT prophylaxis
I personally reviewed all radiology and labs along with past medical records pertinent to current medical problems. Total time spent in patient care is 60 minutes.
Thank you for allowing us to participate in the care of this patient. We will continue to follow. Please do not hesitate to contact us with any questions or concerns.
Objective Data
Vital Signs
Temp Pulse Resp BP Pulse Ox
37.1 C 109 20 118/67 95
04/14/24 16:02 04/14/24 16:02 04/14/24 16:02 04/14/24 16:02 04/14/24 16:02
Lab Results
04/14/24 07:27
04/14/24 07:27
Sodium 136 mmol/L (135-145) 04/14/24 07:27
Potassium 5.2 mmol/L (3.5-5.1) H 04/14/24 07:27
BUN 24 mg/dl (7-17) H 04/14/24 07:27
Glucose 63 mg/dl (70-99) L 04/14/24 07:27
Calcium 9.6 mg/dl (8.4-10.2) 04/14/24 07:27
Phosphorus 3.7 mg/dl (2.5-4.5) 04/13/24 05:35
Patient Allergies
No Known Allergies Allergy (Verified 04/12/24 11:37)
Vital Signs and Labs
-
Vital Signs and Labs:
Vital Signs
Temp Pulse Resp BP Pulse Ox
37.1 C 109 20 118/67 95
04/14/24 16:02 04/14/24 16:02 04/14/24 16:02 04/14/24 16:02 04/14/24 16:02
Lab Results
04/14/24 07:27
04/14/24 07:27
Sodium 136 mmol/L (135-145) 04/14/24 07:27
Potassium 5.2 mmol/L (3.5-5.1) H 04/14/24 07:27
BUN 24 mg/dl (7-17) H 04/14/24 07:27
Glucose 63 mg/dl (70-99) L 04/14/24 07:27
Calcium 9.6 mg/dl (8.4-10.2) 04/14/24 07:27
Phosphorus 3.7 mg/dl (2.5-4.5) 04/13/24 05:35
Medications
-
Medications:
Generic Name Dose Route Start Last Admin
Trade Name Freq PRN Reason Stop Dose Admin
Acetaminophen 650 mg 04/12/24 21:31
Acetaminophen 325 Mg Tablet PO 05/10/24 21:30
Q4HPRN PRN
Mild Pain / Temp > 101
Mannitol 12.5 grams 04/14/24 08:00
Mannitol 25% (12.5 Grams/50 Ml) Vial IV 04/14/24 23:59
HD-Q1HPRN PRN
SBP < 90 mmHg
Pantoprazole Sodium 40 mg 04/13/24 08:00 04/14/24 07:59
Pantoprazole 40 Mg Delayed Release Tablet PO 05/11/24 07:59 Not Given
DAILY LIZETH
Polyethylene Glycol 17 grams 04/15/24 08:00
Polyethylene Glycol Powder 17 Grams Packet TUBE 05/13/24 07:59
DAILY PRN
constipation
Sodium Chloride 10 ml 04/14/24 08:00
Sodium Chloride (4 Meq/Ml) 30 Ml Vial *For Hemodialysis* IV 04/14/24 23:59
HD-Q1HPRN PRN
cramps
Home Medications
-
Home Medications
omeprazole 20 mg tablet,delayed release 20 mg PO DAILY 07/02/23
sennosides 8.6 mg tablet (senna) 8.6 mg PO DAILY 07/02/23
--- NOTE | 2024-04-14 16:28 | W.PN.HOSP.TC ---
Today's Communication/Plan
-
NG tube with initiation of feeding.
HD
Assessment / Plan
Assessment / Plan
Impression:
Presentation with worsening aphasia and dysphagia as well as weight loss over the last 5 6 months
Aspiration risk
Other conditions:
End-stage renal disease on hemodialysis since 04/22
Reported nephrotic range proteinuria at the time of initiation of hemodialysis.
GERD.
History of COVID-19 infection.
History of chronic anemia.
Plan:
Aphasia dysphagia with progressive weight loss.
Reasonable concern for myasthenia gravis, occult malignancy not limited to thymoma. Paraneoplastic syndrome, ALS
Serologic workup including acetylcholine receptor antibody, CPK, inflammatory markers.
CT scan of the chest abdomen and pelvis with no evidence of occult malignancy or mass
MRI of the brain (a CT scan of the head with no acute abnormalities) with no acute abnormalities
EMG
Dysphagia with aspiration risk
Speech and swallow evaluation including VSE.
NG tube placed with plan to initiate feeding
While ongoing neurologic evaluation, will require PEG tube placement.
End-stage renal disease on hemodialysis since 04/22
Nephrology consultation.
HD schedule TTS.
Anticipated Discharge: 24 - 48 hours
Subjective/Interval History
-
Date of Service: April 14, 2024
Objective Data
-
Labs:
Laboratory Results
04/14/24
07:27
Hgb 14.5
Hct 44.8
Sodium 136
Potassium 5.2 H
Chloride 95 L
Carbon Dioxide 26
BUN 24 H
Creatinine 4.0 H
Glucose 63 L
Calcium 9.6
Vital Signs:
Vital Signs
Temp Pulse Resp BP Pulse Ox
98.7 F 109 20 118/67 95
04/14/24 16:02 04/14/24 16:02 04/14/24 16:02 04/14/24 16:02 04/14/24 16:02
I&O
04/13/24 04/14/24 04/15/24
06:59 06:59 06:59
Intake Total 120 / 120
Balance 120 / 120
Physical Exam
-
General: Well Developed and No Apparent Distress
HEENT: Normocephalic, Atraumatic and Moist Mucous Membranes
Respiratory: Clear to Auscultation
Cardiac: Regular Rhythm and S1/S2; Negative Murmur, Rub or Gallop
GI: Soft, Nontender, Nondistended and Normal Bowel Sounds; Negative Organomegaly
Rectal: Deferred by Provider
Musculoskeletal: No Clubbing, No Cyanosis and No Edema
Skin: Negative Rash
Neuro: Awake, Alert, Oriented, AO x 3, Nonfocal/Grossly Intact and Slurred Speech
[2024-04-14 19:10] VITALS: BP 116/76
[2024-04-14 23:05] VITALS: BP 123/74
[2024-04-15] VITALS (7 sets, daily range): BP systolic 108–124; BP diastolic 67–81; PULSE 97–107; BMI 20.7
[2024-04-15 08:26] LABS: Blood Urea Nitrogen 16 mg/dl (7-17); Calcium 9.5 mg/dl (8.4-10.2); Carbon Dioxide 29 mmol/L (22-30); Chloride 93 mmol/L (98-107); Estimated Creatinine Clearance 12 ml/min; Glucose 91 mg/dl (70-99); Magnesium 2.1 mg/dl (1.6-2.3); Phosphorus 4.7 mg/dl (2.5-4.5); Potassium 4.1 mmol/L (3.5-5.1); Sodium 134 mmol/L (135-145); eGFR 19.14
--- NOTE | 2024-04-15 09:46 | W.PN.NEURO.1 ---
Today's Communication / Plan
-
.
Subjective/Objective
Subjective Data
Date of Service: April 15, 2024
Neurology follow-up note.
Ms. Armijo reports no acute complaints. No reports of headaches, change in vision.
Normotensive, afebrile. EMG is pending.
Labs�negative Lyme, normal CK, ESR, CRP.
PMH: Kyphosis HTN, CKD
PSH: Bladder lift, tubal ligation, LUE brachiocephalic AVF
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
FH: Pancreatic and lung cancer.
All:NKDA
ROS: Constitutional: Negative. Negative for chills, fever and unexpected weight change.
HENT: Positive for dysphagia
Eyes: Negative. Negative for photophobia, pain and visual disturbance.
Respiratory: Negative for cough, shortness of breath.
Cardiovascular: Negative for chest pain, palpitations and leg swelling.
Gastrointestinal: Positive for weight loss, sialorrhea
Endocrine: Negative. Negative for cold intolerance.
Genitourinary: Negative for dysuria, flank pain and urgency.
Musculoskeletal: Positive for neck pain
Skin: Negative for rash.
Allergic/Immunologic: Negative. Negative for immunocompromised state.
Neurological: Positive for dysarthria
Psychiatric/Behavioral: Negative for behavioral problems, confusion and hallucinations.
General: Well developed. In no acute distress. Severe kyphosis
Cardio: Regular rate and rhythm without murmur. Extremities are without cyanosis or edema.
Neuro:
Mental Status: Alert, oriented to person, place, and date. Normal attention and recall. Good fund of knowledge. Follows complex requests across the midline. Comprehension, naming, and repetition intact. Immediaterecall 3/3.
Cranial Nerves: Pupils are equally round and reactive to light. EOMs full. Visual garcia full to confrontation. No ptosis. No nystagmus. V1-V3 intact to light touch and pinprick bilaterally, symmetric. Face symmetric. Unable to whistle.
Normal hearing AU. The palate elevated well. SCMs and traps 5/5. Bilateral tongue atrophy and fasciculations severe dysarthria/dysphonia.
Motor: Normal bulk and tone. No pronator or arm drift. Strength 5/5 throughout, except for neck flexors 4-/5, L EHL 4/5. no clonus.
Reflexes: 3+ throughout the upper extremities and knees 3+/2 . 2/2 in AJs. Planta positive Rebecca's on the left r responses flexor bilaterally.
Sensory: Normal vibration and JPS.
Coordination: No dysmetria or tremor.
Gait: deferred
Assessment and Plan:
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 Differential diagnosis includes multifocal motor neuropathy, SMA, inflammatory myopathy, MG.
II. Dysarthria
III. Dysphagia
IV. Kyphosis
-Aspiration precautions
-NPO
-Consider glycopyrrolate for symptomatic management of sialorrhea
-NCS/EMG including paraspinals and tongue EMG
-DVT prophylaxis
I personally reviewed all radiology and labs along with past medical records pertinent to current medical problems. Total time spent in patient care is 37 minutes.
Thank you for allowing us to participate in the care of this patient. We will continue to follow. Please do not hesitate to contact us with any questions or concerns.
Objective Data
Vital Signs
Temp Pulse Resp BP Pulse Ox
36.5 C 93 18 112/67 93
04/15/24 02:52 04/15/24 02:52 04/15/24 02:52 04/15/24 02:52 04/15/24 02:52
Lab Results
04/14/24 07:27
04/15/24 07:37
Sodium 134 mmol/L (135-145) L 04/15/24 07:37
Potassium 4.1 mmol/L (3.5-5.1) 04/15/24 07:37
BUN 16 mg/dl (7-17) 04/15/24 07:37
Glucose 91 mg/dl (70-99) 04/15/24 07:37
Calcium 9.5 mg/dl (8.4-10.2) 04/15/24 07:37
Phosphorus 4.7 mg/dl (2.5-4.5) H 04/15/24 07:37
Patient Allergies
No Known Allergies Allergy (Verified 04/12/24 11:37)
Vital Signs and Labs
-
Vital Signs and Labs:
Vital Signs
Temp Pulse Resp BP Pulse Ox
36.5 C 93 18 112/67 93
04/15/24 02:52 04/15/24 02:52 04/15/24 02:52 04/15/24 02:52 04/15/24 02:52
Lab Results
04/14/24 07:27
04/15/24 07:37
Sodium 134 mmol/L (135-145) L 04/15/24 07:37
Potassium 4.1 mmol/L (3.5-5.1) 04/15/24 07:37
BUN 16 mg/dl (7-17) 04/15/24 07:37
Glucose 91 mg/dl (70-99) 04/15/24 07:37
Calcium 9.5 mg/dl (8.4-10.2) 04/15/24 07:37
Phosphorus 4.7 mg/dl (2.5-4.5) H 04/15/24 07:37
Medications
-
Medications:
Generic Name Dose Route Start Last Admin
Trade Name Freq PRN Reason Stop Dose Admin
Acetaminophen 650 mg 04/12/24 21:31
Acetaminophen 325 Mg Tablet PO 05/10/24 21:30
Q4HPRN PRN
Mild Pain / Temp > 101
Pantoprazole Sodium 40 mg 04/13/24 08:00 04/14/24 07:59
Pantoprazole 40 Mg Delayed Release Tablet PO 05/11/24 07:59 Not Given
DAILY LIZETH
Polyethylene Glycol 17 grams 04/15/24 08:00
Polyethylene Glycol Powder 17 Grams Packet TUBE 05/13/24 07:59
DAILY PRN
constipation
Home Medications
-
Home Medications
omeprazole 20 mg tablet,delayed release 20 mg PO DAILY 07/02/23
sennosides 8.6 mg tablet (senna) 8.6 mg PO DAILY 07/02/23
[2024-04-15] MEDS: PROTONIX PO (10:19)
--- NOTE | 2024-04-15 12:21 | NS.EMG ---
Electromyogram (EMG) Study
EMG/NCS Summary
EMG/nerve conduction study was completed at the patient's bedside.
Needle EMG abnormalities were present in the hyoglossus muscle in the form of reduced recruitment pattern with a single motor unit potential, of increased amplitude and duration, as well as the presence of muscle fasciculations.
Large motor unit potentials were also identified in the left first dorsal interosseous muscle and abductor pollicis brevis muscle with reduced recruitment pattern. Muscle fasciculations were present in the first dorsal interosseous.
The electrodiagnostic abnormalities can be seen in motor neuron/anterior horn cell disease.
The left ulnar motor nerve repetitive stimulation technique was normal. Repetitive stimulation technique recording from the orbicularis quyen was of poor quality.
Full dictated report, tabular data, and waveforms to follow.
--- NOTE | 2024-04-15 13:32 | W.PN.NEPH.PH ---
Today's Communication / Plan
-
dialysis tomorrow
Assessment/Plan
-
73-year-old female with history of CKD on dialysis with AV fistula presenting to the emergency department with family for evaluation of difficulty speaking and swallowing.
impression:
ESRD.
Dysphasia.
hypertensive disorders stable.
Weight loss.
.
Plan:
maintain dialysis schedule TTS., Dialysis tomorrow, orders provided
Neurology consult for bulbar symptoms
Patient remains with NG tube status post EMG
no acute complaints
for dialysis tomorrow no acute need for dialysis today
-
-
Date of Service: April 15, 2024
CC / HPI / ROS
-
Chief Complaint:
ESRD
History of Present Illness:
ESRD Thursday
N.p.o. due to bulbar symptoms
Blood pressure stable with dry weight
Review of Systems:
No fever
N.p.o. due to swallowing dysfunction
No shortness of breath or chest pain
Labs
-
Labs:
WBC 7.5 10^3/uL (4.8-10.8) 04/13/24 04:33
RBC 4.62 10^6/uL (4.20-5.40) 04/13/24 04:33
Hgb 14.5 g/dL (12.0-16.0) 04/14/24 07:27
Hct 44.8 % (37.0-47.0) 04/14/24 07:27
Plt Count 260 10^3/uL (130-400) 04/13/24 04:33
Sodium 134 mmol/L (135-145) L 04/15/24 07:37
Potassium 4.1 mmol/L (3.5-5.1) 04/15/24 07:37
Chloride 93 mmol/L (98-107) L 04/15/24 07:37
Carbon Dioxide 29 mmol/L (22-30) 04/15/24 07:37
BUN 16 mg/dl (7-17) 04/15/24 07:37
Creatinine 2.6 mg/dL (0.6-1.0) H 04/15/24 07:37
eGFR 19.14 04/15/24 07:37
Glucose 91 mg/dl (70-99) 04/15/24 07:37
Calcium 9.5 mg/dl (8.4-10.2) 04/15/24 07:37
Phosphorus 4.7 mg/dl (2.5-4.5) H 04/15/24 07:37
Albumin 3.8 g/dl (3.5-5.0) 04/13/24 05:35
Physical Exam
-
Vital Signs:
Vital Signs
Temp Pulse Resp BP Pulse Ox
98.7 F 98 18 117/74 95
04/15/24 12:00 04/15/24 12:00 04/15/24 12:00 04/15/24 12:00 04/15/24 08:00
Cardiovascular:: Regular rate and rhythm
Respiratory:: Bilateral: CTA
Lung Excursion:: Normal
Abdomen:: Nontender and Soft
Bowel Sounds:: Normal
Extremity Edema:: None: Bilateral:
--- NOTE | 2024-04-15 13:56 | PN.CDI ---
CDI
- -
CDI:
Physician Documentation Request
Admit Date: 04/14/24 14:24
Dear Doctor Braden,
Please review the following and provide your response in the progress notes.
Clinical Indicators:
Documentation includes the diagnosis of malnutrition. Other clinical indicators are:
Casing Tester, 04/13
#... reports pt with weight loss thinks maybe 40 lbs.
#...weight previous admission listed as 124 lbs 04/28/23 reflective of a 23 lb (23%)
#...weight loss in 1 year.
#...weight loss of > 20% in 1 year and < 75% estimated needs > 1 month
#...pt meets AND/ASPEN criteria for moderate protein calorie malnutrition of chronic illness.
To ensure the quality of the medical record, based on the above information and the recognized standards for malnutrition , please verify in the progress notes which of the following responses best reflects the patient's nutritional status:
Moderate Protein Calorie Malnutrition of chronic illness is/was present and is a clinical diagnosis (please provide additional support in the medical record)
Other (please specify)
[place] Criteria ([facility] Hospitalist 2017)
2 or more criteria must be present for either
non severe or severe malnutrition
Note that the criteria differs related to the
presence of an acute or chronic illness
Chronic Illness
Energy Intake Non Severe: <75% for >1 month
Severe: <75% for >1 month
Weight Loss Non Severe: 5% over 1 month
7.5% over 3 months
10% over 6 months
20% over 1 year
Severe: >5% over 1 month
>7.5% over 3 months
>10% over 6 months
>20% over 1 year
Body Fat Non Severe: Mild Loss
Severe: Severe Loss
Muscle Mass Non Severe: Mild Loss
Severe: Severe Loss
Use of terms such as suspected, likely, concern for, or probable (associated with a specific diagnosis that is being evaluated, monitored, or treated as if it exists) are acceptable and can be coded in the inpatient setting, when documented at the
time of discharge.
Thank you,
Yolande Robertson RN BSN CCDS
CDI Specialist
please contact via tiger text
Please use your independent medical judgment in providing your response.
--- NOTE | 2024-04-15 15:02 | W.PN.HOSP.TC ---
Today's Communication/Plan
-
Ongoing neurologic evaluation with clinical concern for ALS.
EMG today.
Aspiration precautions per
NG tube in place with tube feeding initiated.
Most likely PEG tube prior to discharge.
HD as per schedule
Assessment / Plan
Assessment / Plan
Impression:
Presentation with worsening aphasia and dysphagia as well as weight loss over the last 5 6 months
Aspiration risk
Other conditions:
End-stage renal disease on hemodialysis since 04/22
Reported nephrotic range proteinuria at the time of initiation of hemodialysis.
GERD.
History of COVID-19 infection.
History of chronic anemia.
Plan:
Aphasia dysphagia with progressive weight loss.
Reasonable concern for myasthenia gravis, occult malignancy not limited to thymoma. Paraneoplastic syndrome, ALS
Serologic workup including acetylcholine receptor antibody, CPK, inflammatory markers.
CT scan of the chest abdomen and pelvis with no evidence of occult malignancy or mass
MRI of the brain (a CT scan of the head with no acute abnormalities) with no acute abnormalities
EMG
Dysphagia with aspiration risk
Speech and swallow evaluation including VSE.
NG tube placed with plan to initiate feeding
While ongoing neurologic evaluation, will require PEG tube placement.
End-stage renal disease on hemodialysis since 04/22
Nephrology consultation.
HD schedule TTS.
Anticipated Discharge: > 48 hours
Subjective/Interval History
-
Date of Service: April 15, 2024
Objective Data
-
Labs:
Laboratory Results
04/15/24
07:37
Sodium 134 L
Potassium 4.1
Chloride 93 L
Carbon Dioxide 29
BUN 16
Creatinine 2.6 H
Glucose 91
Calcium 9.5
Vital Signs:
Vital Signs
Temp Pulse Resp BP Pulse Ox
98.7 F 98 18 117/74 95
01/17/25 12:00 04/15/24 12:00 04/15/24 12:00 04/15/24 12:00 04/15/24 08:00
I&O
04/14/24 04/15/24 04/16/24
06:59 06:59 06:59
Intake Total 120 / 120 120 / 120
Balance 120 / 120 120 / 120
Physical Exam
-
General: Well Developed and No Apparent Distress
HEENT: Normocephalic, Atraumatic and Moist Mucous Membranes
Respiratory: Clear to Auscultation
Cardiac: Regular Rhythm and S1/S2; Negative Murmur, Rub or Gallop
GI: Soft, Nontender, Nondistended and Normal Bowel Sounds; Negative Organomegaly
Rectal: Deferred by Provider
Musculoskeletal: No Clubbing, No Cyanosis and No Edema
Skin: Negative Rash
Neuro: Awake, Alert, Oriented, AO x 3, Nonfocal/Grossly Intact and Slurred Speech
[2024-04-16 06:00] VITALS: BMI 21.1
[2024-04-16 07:53] VITALS: BP 135/75
[2024-04-16] MEDS: PROTONIX 40 MG PO (08:09)
[2024-04-16 09:02] LABS: Blood Urea Nitrogen 28 mg/dl (7-17); Calcium 9.2 mg/dl (8.4-10.2); Carbon Dioxide 30 mmol/L (22-30); Chloride 91 mmol/L (98-107); Estimated Creatinine Clearance 8 ml/min; Glucose 149 mg/dl (70-99); Phosphorus 3.2 mg/dl (2.5-4.5); Potassium 3.8 mmol/L (3.5-5.1); Sodium 131 mmol/L (135-145); eGFR 12.53
--- NOTE | 2024-04-16 13:06 | W.PN.HOSP.TC ---
Today's Communication/Plan
-
Assessment / Plan
Assessment / Plan
NAD, Dobhoff with TF
Scleral Anicteric
MMM
No JVD
CTABL
RRR, S1/S2
Soft, NT, ND, BS+
LUEAVF with 2 HD catheters connected to HD machine
Warm, Dry
AAO, 4/5 motor strength in LE, unable to assess lUE, 4/5 in RUE
Calm
Impression:
Presentation with worsening aphasia and dysphagia as well as weight loss over the last 5 6 months
Aspiration risk
Other conditions:
End-stage renal disease on hemodialysis since 04/22
Reported nephrotic range proteinuria at the time of initiation of hemodialysis.
GERD.
History of COVID-19 infection.
History of chronic anemia.
Plan:
Aphasia dysphagia with progressive weight loss.
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 Have recommended palliative care evaluation.
Reasonable concern for myasthenia gravis, occult malignancy not limited to thymoma. Paraneoplastic syndrome, ALS
Serologic workup including acetylcholine receptor antibody, CPK, inflammatory markers.
CT scan of the chest abdomen and pelvis with no evidence of occult malignancy or mass
MRI of the brain (a CT scan of the head with no acute abnormalities) with no acute abnormalities
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
Neurology plans to speak with family and Ms/ Zofia about ALS diagnosis. Also recommended to have palliative onboard.
Dysphagia with aspiration risk
Speech and swallow evaluation including VSE.
NG tube placed with plan to initiate feeding
While ongoing neurologic evaluation, will require PEG tube placement.
End-stage renal disease on hemodialysis since 04/22
Nephrology consultation.
HD schedule TTS.
Anticipated Discharge: > 48 hours
Subjective/Interval History
-
Date of Service: April 16, 2024
Seen and examined. Was on hemodialysis. On tube feeds via Dobbhoff.
Objective Data
-
Labs:
Laboratory Results
04/16/24
08:20
Sodium 131 L
Potassium 3.8
Chloride 91 L
Carbon Dioxide 30
BUN 28 H
Creatinine 3.7 H
Glucose 149 H
Calcium 9.2
Vital Signs:
Vital Signs
Temp Pulse Resp BP Pulse Ox
97.7 F 98 16 135/75 94
04/15/24 23:35 04/16/24 07:53 04/16/24 07:53 04/16/24 07:53 04/15/24 23:35
I&O
04/15/24 04/16/24 04/17/24
06:59 06:59 06:59
Intake Total 120 / 120 100 / 100
Balance 120 / 120 100 / 100
--- NOTE | 2024-04-16 14:20 | W.PN.NEPH.PH ---
Today's Communication / Plan
-
dialysis completed
Assessment/Plan
-
73-year-old female with history of CKD on dialysis with AV fistula presenting to the emergency department with family for evaluation of difficulty speaking and swallowing.
impression:
ESRD.
Dysphasia.
hypertensive disorders stable.
Weight loss.
.
Plan:
maintain dialysis schedule TTS.,
Neurology consult
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
muscles
Concern for ALS.
Active care discussions recommended.
questionable peg
no acute complaints
next treatment will be Thursday
-
-
Date of Service: April 16, 2024
CC / HPI / ROS
-
Chief Complaint:
ESRD
History of Present Illness:
ESRD Thursday
N.p.o. due to bulbar symptoms
Blood pressure stable with dry weight
Review of Systems:
No fever
N.p.o. due to swallowing dysfunction
No shortness of breath or chest pain
Labs
-
Labs:
WBC 7.5 10^3/uL (4.8-10.8) 04/13/24 04:33
RBC 4.62 10^6/uL (4.20-5.40) 04/13/24 04:33
Hgb 14.5 g/dL (12.0-16.0) 04/14/24 07:27
Hct 44.8 % (37.0-47.0) 04/14/24 07:27
Plt Count 260 10^3/uL (130-400) 04/13/24 04:33
Sodium 131 mmol/L (135-145) L 04/16/24 08:20
Potassium 3.8 mmol/L (3.5-5.1) 04/16/24 08:20
Chloride 91 mmol/L (98-107) L 04/16/24 08:20
Carbon Dioxide 30 mmol/L (22-30) 04/16/24 08:20
BUN 28 mg/dl (7-17) H 04/16/24 08:20
Creatinine 3.7 mg/dL (0.6-1.0) H 04/16/24 08:20
eGFR 12.53 04/16/24 08:20
Glucose 149 mg/dl (70-99) H 04/16/24 08:20
Calcium 9.2 mg/dl (8.4-10.2) 04/16/24 08:20
Phosphorus 3.2 mg/dl (2.5-4.5) 04/16/24 08:20
Albumin 3.8 g/dl (3.5-5.0) 04/13/24 05:35
Physical Exam
-
Vital Signs:
Vital Signs
Temp Pulse Resp BP Pulse Ox
97.7 F 98 16 135/75 94
04/15/24 23:35 04/16/24 07:53 04/16/24 07:53 04/16/24 07:53 04/15/24 23:35
Cardiovascular:: Regular rate and rhythm
Respiratory:: Bilateral: CTA
Lung Excursion:: Normal
Abdomen:: Nontender and Soft
Bowel Sounds:: Normal
Extremity Edema:: None: Bilateral:
--- NOTE | 2024-04-16 14:22 | W.PN.NEPH.HD ---
Assessment
-
seen on dialysis tolerated treatment
Progress Note - Hemodialysis
-
Date of Service: April 16, 2024
Duration: 30 minutes and 3 hours
Potassium Bath: 2
Calcium Bath: 2.5
Opti-Dialyzer: 160
Ultrafiltration: Other (0.5 kg)
Blood Flow: 400
Dialysate Flow: 600
Heparin: None
EPO: None
[2024-04-16 15:00] VITALS: BP 149/102; BP 157/105; BP 162/108; PULSE 108; PULSE 110; PULSE 116
--- NOTE | 2024-04-16 18:00 | W.PN.NEURO.1 ---
Today's Communication / Plan
-
.
Subjective/Objective
Subjective Data
Date of Service: April 16, 2024
Neurology follow-up note.
Ms. Armijo continues to have recurrent dysphagia.
NCS/EMG(04/15/2024) 'Needle EMG abnormalities were present in the hyoglossus muscle in the form of reduced recruitment pattern with a single motor unit potential, of increased amplitude and duration, as well as the presence of muscle fasciculations.
Large motor unit potentials were also identified in the left first dorsal interosseous muscle and abductor pollicis brevis muscle with reduced recruitment pattern. Muscle fasciculations were present in the first dorsal interosseous.
The left ulnar motor nerve repetitive stimulation technique was normal. Repetitive stimulation technique recording from the orbicularis quyen was of poor quality'.
Full NCS/EMG report is pending. No data for paraspinal EMG is available as of now.
Labs�negative Lyme, normal CK, ESR, CRP.
PMH: ESRD on HD, kyphosis HTN, CKD
PSH: Bladder lift, tubal ligation, LUE brachiocephalic AVF
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
FH: Pancreatic and lung cancer.
All:NKDA
ROS: Constitutional: Negative. Negative for chills, fever and unexpected weight change.
HENT: Positive for dysphagia
Eyes: Negative. Negative for photophobia, pain and visual disturbance.
Respiratory: Negative for cough, shortness of breath.
Cardiovascular: Negative for chest pain, palpitations and leg swelling.
Gastrointestinal: Positive for weight loss, sialorrhea
Endocrine: Negative. Negative for cold intolerance.
Genitourinary: Negative for dysuria, flank pain and urgency.
Musculoskeletal: Positive for neck pain
Skin: Negative for rash.
Allergic/Immunologic: Negative. Negative for immunocompromised state.
Neurological: Positive for dysarthria
Psychiatric/Behavioral: Negative for behavioral problems, confusion and hallucinations.
General: Well developed. In no acute distress. Severe kyphosis
Cardio: Regular rate and rhythm without murmur. Extremities are without cyanosis or edema.
Neuro:
Mental Status: Alert, oriented to person, place, and date. Normal attention and recall. Good fund of knowledge. Follows complex requests across the midline. Comprehension, naming, and repetition intact. Immediaterecall 3/3.
Cranial Nerves: Pupils are equally round and reactive to light. EOMs full. Visual garcia full to confrontation. No ptosis. No nystagmus. V1-V3 intact to light touch and pinprick bilaterally, symmetric. Face symmetric. Unable to whistle.
Normal hearing AU. The palate elevated well. SCMs and traps 5/5. Bilateral tongue atrophy and fasciculations severe dysarthria/dysphonia.
Motor: Normal bulk and tone. No pronator or arm drift. Strength 5/5 throughout, except for neck flexors 4-/5, L EHL 4/5. no clonus.
Reflexes: 3+ throughout the upper extremities and knees 3+/2 . 2/2 in AJs. Planta positive Rebecca's on the left r responses flexor bilaterally.
Sensory: Normal vibration and JPS.
Coordination: No dysmetria or tremor.
Gait: deferred
Assessment and Plan:
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
II. Dysarthria/dysphagia
III. Kyphosis
-Aspiration precautions
-NPO
-Consider glycopyrrolate for symptomatic management of sialorrhea
-Follow-up formal EMG report.
-[facility] follow-up ([id number], [place],�[place]�[address]. T: [phone])
-Please recall neurology services any questions or concerns.
I personally reviewed all radiology and labs along with past medical records pertinent to current medical problems. Total time spent in patient care is 37 minutes.
Thank you for allowing us to participate in the care of this patient. Please do not hesitate to contact us with any questions or concerns.
Objective Data
Vital Signs
Temp Pulse Resp BP Pulse Ox
36.8 C 108 16 162/108 94
04/16/24 15:00 04/16/24 15:00 04/16/24 15:00 04/16/24 15:00 04/16/24 15:00
Lab Results
04/14/24 07:27
04/16/24 08:20
Sodium 131 mmol/L (135-145) L 04/16/24 08:20
Potassium 3.8 mmol/L (3.5-5.1) 04/16/24 08:20
BUN 28 mg/dl (7-17) H 04/16/24 08:20
Glucose 149 mg/dl (70-99) H 04/16/24 08:20
Calcium 9.2 mg/dl (8.4-10.2) 04/16/24 08:20
Phosphorus 3.2 mg/dl (2.5-4.5) 04/16/24 08:20
Patient Allergies
No Known Allergies Allergy (Verified 04/12/24 11:37)
Vital Signs and Labs
-
Vital Signs and Labs:
Vital Signs
Temp Pulse Resp BP Pulse Ox
36.3 C 95 16 145/92 94
04/17/24 07:05 04/17/24 07:05 04/17/24 07:05 04/17/24 07:05 04/17/24 07:05
Lab Results
04/14/24 07:27
04/16/24 08:20
Sodium 131 mmol/L (135-145) L 04/16/24 08:20
Potassium 3.8 mmol/L (3.5-5.1) 04/16/24 08:20
BUN 28 mg/dl (7-17) H 04/16/24 08:20
Glucose 149 mg/dl (70-99) H 04/16/24 08:20
Calcium 9.2 mg/dl (8.4-10.2) 04/16/24 08:20
Phosphorus 3.2 mg/dl (2.5-4.5) 04/16/24 08:20
Medications
-
Medications:
Generic Name Dose Route Start Last Admin
Trade Name Freq PRN Reason Stop Dose Admin
Acetaminophen 650 mg 04/12/24 21:31
Acetaminophen 325 Mg Tablet PO 05/10/24 21:30
Q4HPRN PRN
Mild Pain / Temp > 101
Pantoprazole Sodium 40 mg 04/13/24 08:00 04/17/24 08:09
Pantoprazole 40 Mg Delayed Release Tablet PO 05/11/24 07:59 40 mg
DAILY LIZETH Administration
Polyethylene Glycol 17 grams 04/15/24 08:00
Polyethylene Glycol Powder 17 Grams Packet TUBE 05/13/24 07:59
DAILY PRN
constipation
Home Medications
-
Home Medications
omeprazole 20 mg tablet,delayed release 20 mg PO DAILY Gastrointestinal Issue 07/02/23
sennosides 8.6 mg tablet (senna) 8.6 mg PO DAILY Constipation 07/02/23
[2024-04-16 23:00] VITALS: BP 139/89; BP 142/94; BP 161/90; PULSE 104; PULSE 108; PULSE 94
[2024-04-17 06:00] VITALS: BMI 21.1
[2024-04-17 07:05] VITALS: BP 145/92
[2024-04-17] MEDS: PROTONIX 40 MG PO (08:09)
--- NOTE | 2024-04-17 10:52 | W.PN.HOSP.TC ---
Today's Communication/Plan
-
Will need continued goals of care discussion in terms of next steps and Dobbhoff tube PEG tube ordered Dobbhoff to comfort feeds as neurology believes suspects this is ALS and has recommended follow-up at ALS center
Assessment / Plan
Assessment / Plan
NAD, Dobhoff with TF
Scleral Anicteric
MMM
No JVD
CTABL
RRR, S1/S2
Soft, NT, ND, BS+
LUEAVF with 2 HD catheters connected to HD machine
Warm, Dry
AAO, 4/5 motor strength in LE, unable to assess lUE, 4/5 in RUE
Calm
Impression:
Presentation with worsening aphasia and dysphagia as well as weight loss over the last 5 6 months
Aspiration risk
Other conditions:
End-stage renal disease on hemodialysis since 04/22
Reported nephrotic range proteinuria at the time of initiation of hemodialysis.
GERD.
History of COVID-19 infection.
History of chronic anemia.
Plan:
Aphasia dysphagia with progressive weight loss.
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 Have recommended palliative care evaluation.
Reasonable concern for myasthenia gravis, occult malignancy not limited to thymoma. Paraneoplastic syndrome, ALS
Serologic workup including acetylcholine receptor antibody, CPK, inflammatory markers.
CT scan of the chest abdomen and pelvis with no evidence of occult malignancy or mass
MRI of the brain (a CT scan of the head with no acute abnormalities) with no acute abnormalities
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
Neurology plans to speak with family and Ms/ Zofia about ALS diagnosis. Also recommended to have palliative onboard.
Dysphagia with aspiration risk
Speech and swallow evaluation including VSE.
NG tube placed with plan to initiate feeding
While ongoing neurologic evaluation, will require PEG tube placement.
End-stage renal disease on hemodialysis since 04/22
Nephrology consultation.
HD schedule TTS.
Anticipated Discharge: > 48 hours
Subjective/Interval History
-
Date of Service: April 17, 2024
Seen and examined. No further episodes of bloating. No new complaints. Discussed with neurology recommends will need follow-up at [facility] center
Objective Data
-
Vital Signs:
Vital Signs
Temp Pulse Resp BP Pulse Ox
97.4 F 95 16 145/92 94
04/17/24 07:05 04/17/24 07:05 04/17/24 07:05 04/17/24 07:05 04/17/24 07:05
I&O
04/16/24 04/17/24 04/18/24
06:59 06:59 06:59
Intake Total 100 / 100 560 / 560
Balance 100 / 100 560 / 560
[2024-04-17 10:56] VITALS: BP 128/90; BP 137/80; BP 139/84; PULSE 102; PULSE 106; PULSE 99
--- NOTE | 2024-04-17 13:10 | CHAP ---
Lacey made good eye contact - she looked discouraged. She welcomed prayer, and with much effort, said, 'Thank you.' Emotional and spiritual support provided.
--- NOTE | 2024-04-17 14:42 | W.PN.NEPH.PH ---
Today's Communication / Plan
-
no acute need for dialysis today next treatment Thursday
Assessment/Plan
-
73-year-old female with history of CKD on dialysis with AV fistula presenting to the emergency department with family for evaluation of difficulty speaking and swallowing.
impression:
ESRD.
Dysphasia.
hypertensive disorders stable.
Weight loss.
.
Plan:
maintain dialysis schedule TTS.,
Neurology consult
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
muscles
Concern for ALS.
Active care discussions recommended.
questionable peg
no acute complaints
next treatment will be Thursday
-
-
Date of Service: April 17, 2024
CC / HPI / ROS
-
Chief Complaint:
ESRD
History of Present Illness:
ESRD Thursday
N.p.o. due to bulbar symptoms
Blood pressure stable with dry weight
Review of Systems:
No fever
N.p.o. due to swallowing dysfunction
No shortness of breath or chest pain
Labs
-
Labs:
WBC 7.5 10^3/uL (4.8-10.8) 04/13/24 04:33
RBC 4.62 10^6/uL (4.20-5.40) 04/13/24 04:33
Hgb 14.5 g/dL (12.0-16.0) 04/14/24 07:27
Hct 44.8 % (37.0-47.0) 04/14/24 07:27
Plt Count 260 10^3/uL (130-400) 04/13/24 04:33
Sodium 131 mmol/L (135-145) L 04/16/24 08:20
Potassium 3.8 mmol/L (3.5-5.1) 04/16/24 08:20
Chloride 91 mmol/L (98-107) L 04/16/24 08:20
Carbon Dioxide 30 mmol/L (22-30) 04/16/24 08:20
BUN 28 mg/dl (7-17) H 04/16/24 08:20
Creatinine 3.7 mg/dL (0.6-1.0) H 04/16/24 08:20
eGFR 12.53 04/16/24 08:20
Glucose 149 mg/dl (70-99) H 04/16/24 08:20
Calcium 9.2 mg/dl (8.4-10.2) 04/16/24 08:20
Phosphorus 3.2 mg/dl (2.5-4.5) 04/16/24 08:20
Albumin 3.8 g/dl (3.5-5.0) 04/13/24 05:35
Physical Exam
-
Vital Signs:
Vital Signs
Temp Pulse Resp BP Pulse Ox
97.4 F 95 16 145/92 94
04/17/24 07:05 04/17/24 07:05 04/17/24 07:05 04/17/24 07:05 04/17/24 07:05
Cardiovascular:: Regular rate and rhythm
Respiratory:: Bilateral: CTA
Lung Excursion:: Normal
Abdomen:: Nontender and Soft
Bowel Sounds:: Normal
Extremity Edema:: None: Bilateral:
[2024-04-17 15:34] VITALS: BP 136/77
[2024-04-17 22:56] VITALS: BP 119/84; BP 129/76; BP 146/90; PULSE 104; PULSE 108; PULSE 92
[2024-04-18 06:00] VITALS: BMI 21.1
[2024-04-18 07:27] VITALS: BP 148/97
[2024-04-18 07:58] VITALS: BP 133/82; BP 148/97; BP 155/98; PULSE 100; PULSE 105; PULSE 115
[2024-04-18] MEDS: PROTONIX 40 MG PO (08:08)
--- NOTE | 2024-04-18 10:48 | CM ---
Chart reviewed and patient with NG tube, per nephrology HD tomorrow, patient is inpatient and telephonic case manager will follow with patient progress and assist with discharge planning needs.
Plan; Physical therapy are recommending home with home health when stable, telephonic case manager will follow for discharge planning needs for patient at home.
--- NOTE | 2024-04-18 13:49 | W.PN.NEPH.PH ---
Today's Communication / Plan
-
PEG evaluation
Assessment/Plan
-
73-year-old female with history of CKD on dialysis with AV fistula presenting to the emergency department with family for evaluation of difficulty speaking and swallowing.
impression:
ESRD.
Dysphasia.
hypertensive disorders stable.
Weight loss.
.
Plan:
HD tomorrow
Continue tube feeding
Free water flush okay for now
She is willing to accept PEG tube at this point we will need GI reevaluation
We discussed long-term prognosis. She knows that if she has ALS her prognosis is extreme poor. She also understands that she may also discontinue dialysis at any time, which would also result in her .
PEG tube will give her the time to decide whether or not her quality of life is acceptable
-
-
Date of Service: April 18, 2024
CC / HPI / ROS
-
Chief Complaint:
ESRD
History of Present Illness:
ESRD Thursday
N.p.o. due to bulbar symptoms
Blood pressure stable with dry weight
Tube feeding with NG tube in progress
Review of Systems:
No fever
N.p.o. due to swallowing dysfunction
No shortness of breath or chest pain
Labs
-
Labs:
WBC 7.5 10^3/uL (4.8-10.8) 04/13/24 04:33
RBC 4.62 10^6/uL (4.20-5.40) 04/13/24 04:33
Hgb 14.5 g/dL (12.0-16.0) 04/14/24 07:27
Hct 44.8 % (37.0-47.0) 04/14/24 07:27
Plt Count 260 10^3/uL (130-400) 04/13/24 04:33
Sodium 131 mmol/L (135-145) L 04/16/24 08:20
Potassium 3.8 mmol/L (3.5-5.1) 04/16/24 08:20
Chloride 91 mmol/L (98-107) L 04/16/24 08:20
Carbon Dioxide 30 mmol/L (22-30) 04/16/24 08:20
BUN 28 mg/dl (7-17) H 04/16/24 08:20
Creatinine 3.7 mg/dL (0.6-1.0) H 04/16/24 08:20
eGFR 12.53 04/16/24 08:20
Glucose 149 mg/dl (70-99) H 04/16/24 08:20
Calcium 9.2 mg/dl (8.4-10.2) 04/16/24 08:20
Phosphorus 3.2 mg/dl (2.5-4.5) 04/16/24 08:20
Albumin 3.8 g/dl (3.5-5.0) 04/13/24 05:35
Physical Exam
-
Vital Signs:
Vital Signs
Temp Pulse Resp BP Pulse Ox
97.6 F 100 16 148/97 98
04/18/24 07:27 04/18/24 07:27 04/18/24 07:27 04/18/24 07:27 04/18/24 07:27
Cardiovascular:: Regular rate and rhythm
Respiratory:: Bilateral: Coarse
Lung Excursion:: Normal
Abdomen:: Nontender and Soft
Bowel Sounds:: Normal
Extremity Edema:: None: Bilateral:
[2024-04-18 15:12] VITALS: BP 130/83
--- NOTE | 2024-04-18 15:27 | W.PN.HOSP.TC ---
Today's Communication/Plan
-
Ongoing tube feeding
GI consultation for PEG placement
HD as per schedule
Assessment / Plan
Assessment / Plan
Impression:
Presentation with worsening aphasia and dysphagia as well as weight loss over the last 5 6 months
Aspiration risk
Other conditions:
End-stage renal disease on hemodialysis since 04/22
Reported nephrotic range proteinuria at the time of initiation of hemodialysis.
GERD.
History of COVID-19 infection.
History of chronic anemia.
Plan:
Aphasia dysphagia with progressive weight loss.
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 Have recommended palliative care evaluation.
Reasonable concern for myasthenia gravis, occult malignancy not limited to thymoma. Paraneoplastic syndrome, ALS
Serologic workup including acetylcholine receptor antibody, CPK, inflammatory markers.
CT scan of the chest abdomen and pelvis with no evidence of occult malignancy or mass
MRI of the brain (a CT scan of the head with no acute abnormalities) with no acute abnormalities
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
Neurology plans to speak with family and Ms/ Zofia about ALS diagnosis. Also recommended to have palliative onboard.
Dysphagia with aspiration risk
Speech and swallow evaluation including VSE.
NG tube placed with plan to initiate feeding
While ongoing neurologic evaluation, will require PEG tube placement.
End-stage renal disease on hemodialysis since 04/22
Nephrology consultation.
HD schedule TTS.
Anticipated Discharge: 24 - 48 hours
Subjective/Interval History
-
Date of Service: April 18, 2024
Objective Data
-
Vital Signs:
Vital Signs
Temp Pulse Resp BP Pulse Ox
98.7 F 99 20 130/83 98
04/18/24 15:12 04/18/24 15:12 04/18/24 15:12 04/18/24 15:12 04/18/24 15:12
I&O
04/17/24 04/18/24 04/19/24
06:59 06:59 06:59
Intake Total 560 / 560 540 / 540
Balance 560 / 560 540 / 540
Physical Exam
-
General: Well Developed and No Apparent Distress
HEENT: Normocephalic, Atraumatic and Moist Mucous Membranes
Respiratory: Clear to Auscultation
Cardiac: Regular Rhythm and S1/S2; Negative Murmur, Rub or Gallop
GI: Soft, Nontender, Nondistended and Normal Bowel Sounds; Negative Organomegaly
Rectal: Deferred by Provider
Musculoskeletal: No Clubbing, No Cyanosis and No Edema
Skin: Negative Rash
Neuro: Awake, Alert, Oriented, AO x 3, Nonfocal/Grossly Intact and Slurred Speech
--- NOTE | 2024-04-18 16:02 | W.PN.GI.CBS2 ---
Today's Communication / Plan
-
etiology of symptoms related to neurologic with concern for ALS
pt and family agreeable for peg
NPO for am
abx added consulting technical director
will try to coordinate for AM HD and PM peg
some bloating and decreased rate of tube feeds
pt still with minimal stools-- will given miralax and suppository now then enema to follow
family updated and agreeable to proceed all questions answered
Assessment / Plan
-
Pt is a 73yo with hx ESRD, HTN, uterine prolapse, chronic anemia, DDD with chronic back pain with progressive decline with difficulty swallowing and speaking with weight loss up to 40 lbs. Pt was seen by speech therapy and VSE completed with mild
oral and moderate to severe pharyngeal dysphagia recommended NPO. She is also in current work up with neurology of etiology of symptoms. In review with patient she also admits to progressive neck/back pain, GERD with Omeprazole use and
constipation. On admission CT completed with no acute malignancies and large amount of fecal material in region of rectum.
04/13 MRI brain no acute intracardial abnormality
-dysphagia/speech difficulty- concern for neuromuscular disorder- ALS
-failure to thrive
-wt loss
-constipation
-neck pain worse with movement
-severe calorie malnutrition
other med problems:
-ESRD
-uterine prolapse
PLAN:
etiology of symptoms related to neurologic with concern for ALS
pt and family agreeable for peg
NPO for am
abx added consulting technical director
will try to coordinate for AM HD and PM peg
some bloating and decreased rate of tube feeds
pt still with minimal stools-- will given miralax and suppository now then enema to follow
family updated and agreeable to proceed all questions answered
Subjective
Subjective
Date of Service: April 18, 2024
small amount of stool, + bloating, tolerating some tube feed but rate decreased with bloating today
Objective
Data Reviewed
Laboratory Data:
Laboratory Results
04/14/24 07:27
04/16/24 08:20
Laboratory Results
Phosphorus 3.2 mg/dl (2.5-4.5) 04/16/24 08:20
Magnesium 2.0 mg/dl (1.6-2.3) 04/16/24 08:20
Total Bilirubin 0.8 mg/dl (0.2-1.3) 04/13/24 05:35
AST 25 U/L (14-36) 04/13/24 05:35
ALT 10 U/L (0-35) 04/13/24 05:35
Alkaline Phosphatase 62 U/L (38-126) 04/13/24 05:35
Vital Signs and I&O:
Vital Signs
Temp Pulse Resp BP Pulse Ox
98.7 F 99 20 130/83 98
04/18/24 15:12 04/18/24 15:12 04/18/24 15:12 04/18/24 15:12 04/18/24 15:12
I&O
04/17/24 04/18/24 04/19/24
06:59 06:59 06:59
Intake Total 560 / 560 540 / 540
Balance 560 / 560 540 / 540
Physical Exam
Physical Exam
HEENT: Anicteric and Moist mucous membranes
Cardiology: Normal Sinus Rhythm
Pulmonary: Clear
GI: Soft
Extremities: No Edema
Neuro: Non Focal
[2024-04-18] MEDS: MIRALAX 17 GRAMS TUBE (16:24)
[2024-04-18] MEDS: DULCOLAX 10 MG RECTAL (16:24)
[2024-04-18 20:16] LABS: IgA 362 mg/dL (68-408); IgG 916 mg/dL (768-1632); IgM 41 mg/dL (35-263)
[2024-04-18 21:10] LABS: Albumin 3.62 g/dL (3.75-5.01); Alpha 1 Globulin 0.34 g/dL (0.19-0.46); Alpha 2 Globulin 0.96 g/dL (0.48-1.05); SPEP IFE Reflex IFE Done; Total Protein-Electrophoresis 6.5 g/dL (6.3-8.2)
[2024-04-18 23:15] VITALS: BP 136/89; BP 142/78; BP 151/78; PULSE 101; PULSE 106; PULSE 99
[2024-04-19 06:00] VITALS: BMI 21.1
[2024-04-19 07:48] VITALS: BP 130/88
[2024-04-19 08:03] LABS: Hematocrit 40.5 % (37.0-47.0); Hemoglobin 13.4 g/dL (12.0-16.0)
[2024-04-19] MEDS: HEPARIN 500 UNITS IV ×2 (08:05→09:05)
--- NOTE | 2024-04-19 08:20 | PTCARENOTE ---
04/19- All am medications to be held until S/P Dialysis. Will administer medication as ordered at that time.
[2024-04-19 08:22] LABS: Carbon Dioxide 30 mmol/L (22-30); Chloride 91 mmol/L (98-107); Potassium 4.1 mmol/L (3.5-5.1); Sodium 130 mmol/L (135-145)
[2024-04-19] MEDS: FLEXBUMIN 25% FOR HEMODIALYSIS 12.5 GRAMS IV ×2 (08:48→09:59)
--- NOTE | 2024-04-19 11:51 | W.PN.NEPH.HD ---
Assessment
-
Seen on HD. no new complaints. VSS, access ok
PEG tomorrow (staffing)
Progress Note - Hemodialysis
-
Date of Service: April 19, 2024
Duration: 30 minutes and 3 hours
Potassium Bath: 2
Calcium Bath: 2.5
Opti-Dialyzer: 160
Ultrafiltration: Other (0.5)
Blood Flow: 400
Dialysate Flow: 600
Heparin: 500x2
EPO: 0
--- NOTE | 2024-04-19 12:12 | W.PN.UPDATE ---
Update Note
Progress Note Update
PEG is scheduled for 04/20. Will resume tube feeding today. NPO after MN. Plan Discussed with patient/ patient's son .
[2024-04-19] MEDS: MIRALAX 17 GRAMS TUBE (12:50)
[2024-04-19] MEDS: PROTONIX 40 MG PO (12:50)
--- NOTE | 2024-04-19 14:06 | W.PN.HOSP.TC ---
Today's Communication/Plan
-
Bowel regimen as per GI. Plan for PEG placement in a.m. 04/20
HD today
Assessment / Plan
Assessment / Plan
Impression:
Presentation with worsening aphasia and dysphagia as well as weight loss over the last 5 6 months
Aspiration risk
Moderate protein calorie malnutrition BMI 21
Constipation
Other conditions:
End-stage renal disease on hemodialysis since 04/22
Reported nephrotic range proteinuria at the time of initiation of hemodialysis.
GERD.
History of COVID-19 infection.
History of chronic anemia.
Plan:
Aphasia dysphagia with progressive weight loss.
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 Have recommended palliative care evaluation.
Reasonable concern for myasthenia gravis, occult malignancy not limited to thymoma. Paraneoplastic syndrome, ALS
Serologic workup including acetylcholine receptor antibody, CPK, inflammatory markers.
CT scan of the chest abdomen and pelvis with no evidence of occult malignancy or mass
MRI of the brain (a CT scan of the head with no acute abnormalities) with no acute abnormalities
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
Neurology plans to speak with family and Ms/ Zofia about ALS diagnosis. Also recommended to have palliative onboard.
Dysphagia with aspiration risk
Speech and swallow evaluation including VSE.
NG tube placed with plan to initiate feeding
While ongoing neurologic evaluation, will require PEG tube placement.
End-stage renal disease on hemodialysis since 04/22
Nephrology consultation.
HD schedule TTS.
Anticipated Discharge: 24 - 48 hours
Subjective/Interval History
-
Date of Service: April 19, 2024
Objective Data
-
Labs:
Laboratory Results
04/19/24
07:27
Hgb 13.4
Hct 40.5
Sodium 130 L
Potassium 4.1
Chloride 91 L
Carbon Dioxide 30
Vital Signs:
Vital Signs
Temp Pulse Resp BP Pulse Ox
97.8 F 96 18 130/88 99
04/19/24 07:48 04/19/24 07:48 04/19/24 07:48 04/19/24 07:48 04/19/24 08:20
I&O
04/18/24 04/19/24 04/20/24
06:59 06:59 06:59
Intake Total 540 / 540 175 / 175
Balance 540 / 540 175 / 175
Physical Exam
-
General: Well Developed and No Apparent Distress
HEENT: Normocephalic, Atraumatic and Moist Mucous Membranes
Respiratory: Clear to Auscultation
Cardiac: Regular Rhythm and S1/S2; Negative Murmur, Rub or Gallop
GI: Soft, Nontender, Nondistended and Normal Bowel Sounds; Negative Organomegaly
Rectal: Deferred by Provider
Musculoskeletal: No Clubbing, No Cyanosis and No Edema
Skin: Negative Rash
Neuro: Awake, Alert, Oriented, AO x 3, Nonfocal/Grossly Intact and Slurred Speech
--- NOTE | 2024-04-19 15:07 | CM ---
Patient seen at bedside with son Franck
CM completed - Tube feeds
HD today
PEG tomorrow
Discussed with patient/son options for TF & VN
preferred [facility] for TF & supplies & [facility]
Per son patient does not have a PCP - had an appt on 05/04
Will need PCP to agree to sign outpatient TF & VN (referral entered in [facility])
Spoke with Lisseth from [facility] & cm will need to fax information
Enteral Prescriber Order form sheet placed on front of chart to be completed by hospitalist
PLAN: home with [facility] Fax #[phone]
[2024-04-19 15:34] VITALS: BP 132/73
[2024-04-19] MEDS: TYLENOL 650 MG PO ×2 (15:45→19:50)
[2024-04-19 23:24] VITALS: BP 132/74
--- NOTE | 2024-04-20 02:10 | DOWNTIME ---
There was a PT [employer] Downtime on 04/20/2024 from 0100 to 04/20/2023 at 0205 . Downtime documentation of patient's care, including medication administrations, has been reconciled in the electronic record per guidelines. Refer to the
patient's paper chart under the miscellaneous tab to see printed paper medication records and downtime forms.
[2024-04-20 05:36] VITALS: BMI 21.0
[2024-04-20 07:00] VITALS: BP 137/78
[2024-04-20] MEDS: PROTONIX PO (07:33)
[2024-04-20] MEDS: MIRALAX TUBE (07:33)
--- NOTE | 2024-04-20 08:55 | PN.CDI ---
CDI
- -
CDI:
Physician Documentation Request
Admit Date: 04/14/24 14:24
Dear Doctor Braden,
Please review the following and provide your response in the progress notes.
Clinical Indicators:
Laboratory Tests
04/12/24 04/13/24 04/14/24
11:47 05:35 07:27
Sodium 136 137 136
04/15/24 04/16/24 04/19/24
07:37 08:20 07:27
Sodium 134 L 131 L 130 L
Based on the above and your clinical assessment, please clarify in the progress notes, the appropriate diagnosis, if significant, that supports the above abnormalities and additional evaluation, monitoring and/or treatment rendered:
Hyponatremia
Abnormal lab value, clinically insignificant
Other(please specify)
Use of terms such as suspected, likely, concern for, or probable (associated with a specific diagnosis that is being evaluated, monitored, or treated as if it exists) are acceptable and can be coded in the inpatient setting, when documented at the
time of discharge.
Thank you,
Yolande Robertson RN BSN CCDS
CDI Specialist
please contact via tiger text
Please use your independent medical judgment in providing your response.
--- NOTE | 2024-04-20 13:55 | OR.RPT ---
Operative Report
Operative Report
PREOPERATIVE DIAGNOSIS: ALS
POSTOPERATIVE DIAGNOSIS: ALS
PROCEDURE PERFORMED: Percutaneous endoscopic gastrostomy (PEG) tube.
DATE OF SURGERY: 04/20/24
ANESTHESIA: Conscious sedation per Anesthesia.
SPECIMEN: None.
COMPLICATIONS: None.
PROCEDURE: After informed consent was obtained, the patient was brought to the endoscopy suite. She was placed in the supine position and was given IV sedation by the Anesthesia team. An EGD was performed from above by Dr. Downing. The stomach was
transilluminated and an optimal position for the PEG tube was identified using the single poke method (1:1 palpation). The needle and sheath were attached to a 5cc syringe with saline inside and then inserted through the abdomen into the stomach
under direct visualization while pulling back on the syringe plunger. No release of suction occurred in the syringe until the tip of the needle was visualized in the gastric lumen. The needle was removed and a guidewire was inserted through the
sheath. The guidewire was grasped from above with a snare by the endoscopist. It was removed completely and the PEG tube was secured to the guidewire.
The guidewire and PEG tube were then pulled through the mouth and esophagus and snug to the abdominal wall. The bumper was placed and noted to be at 3cm at the skin. There was no evidence of bleeding. A complete dictation for the EGD will be done
separately by Dr. Downing. The patient tolerated the procedure well and was transferred to recovery room in stable condition.
[2024-04-20] MEDS: TYLENOL PO (14:34)
[2024-04-20 14:40] VITALS: BP 142/88
--- NOTE | 2024-04-20 14:40 | PTCARENOTE ---
Addendum entered by Eufemia Toussaint RN 04/20/24 15:06:
04/20- As per GI Physician, PEG is clear to use for water and medications. IV pain medication also ordered by Hospitalist for moderate to severe pain.
Original Note:
04/20- Patient returned from procedure without issue. AAOX3, able to walk from stretcher to chair. Site CDI. Old blood cleansed from surrounding skin. Sterile gauze placed around site. Patient c/o 5/10 abdominal and upper back pains. Notified
Physician, as only pain medication at this time would be Tylenol via the tube PRN. Tylenol not administered, awaiting further instructions/orders from Physician. Warm blanket applied to upper back; deep breathing discussed.
[2024-04-20] MEDS: TYLENOL 650 MG PO (15:07)
[2024-04-20 15:15] VITALS: BP 129/90
--- NOTE | 2024-04-20 15:22 | W.PN.HOSP.TC ---
Today's Communication/Plan
-
For PEG tube placement today
Assessment / Plan
Assessment / Plan
Impression:
Presentation with worsening aphasia and dysphagia as well as weight loss over the last 5 6 months
Aspiration risk
Moderate protein calorie malnutrition BMI 21
Constipation
Other conditions:
End-stage renal disease on hemodialysis since 04/22
Reported nephrotic range proteinuria at the time of initiation of hemodialysis.
GERD.
History of COVID-19 infection.
History of chronic anemia.
Plan:
Aphasia dysphagia with progressive weight loss.
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 Have recommended palliative care evaluation.
Reasonable concern for myasthenia gravis, occult malignancy not limited to thymoma. Paraneoplastic syndrome, ALS
Serologic workup including acetylcholine receptor antibody, CPK, inflammatory markers.
CT scan of the chest abdomen and pelvis with no evidence of occult malignancy or mass
MRI of the brain (a CT scan of the head with no acute abnormalities) with no acute abnormalities
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
Neurology plans to speak with family and Ms/ Zofia about ALS diagnosis. Also recommended to have palliative onboard.
Dysphagia with aspiration risk
Speech and swallow evaluation including VSE.
NG tube placed with plan to initiate feeding
While ongoing neurologic evaluation, will require PEG tube placement.
End-stage renal disease on hemodialysis since 04/22
Nephrology consultation.
HD schedule TTS.
Anticipated Discharge: > 48 hours
Subjective/Interval History
-
Date of Service: April 20, 2024
Objective Data
-
Vital Signs:
Vital Signs
Temp Pulse Resp BP Pulse Ox
98.0 F 100 18 129/90 94
04/20/24 15:15 04/20/24 15:15 04/20/24 15:15 04/20/24 15:15 04/20/24 15:15
I&O
04/19/24 04/20/24 04/21/24
06:59 06:59 06:59
Intake Total 175 / 175
Balance 175 / 175
Physical Exam
-
General: Well Developed and No Apparent Distress
HEENT: Normocephalic, Atraumatic and Moist Mucous Membranes
Respiratory: Clear to Auscultation
Cardiac: Regular Rhythm and S1/S2; Negative Murmur, Rub or Gallop
GI: Soft, Nontender, Nondistended and Normal Bowel Sounds; Negative Organomegaly
Rectal: Deferred by Provider
Musculoskeletal: No Clubbing, No Cyanosis and No Edema
Skin: Negative Rash
Neuro: Awake, Alert, Oriented, AO x 3, Nonfocal/Grossly Intact and Slurred Speech
--- NOTE | 2024-04-20 15:26 | W.PN.NEPH.PH ---
Today's Communication / Plan
-
dialysis tomorrow
Assessment/Plan
-
73-year-old female with history of CKD on dialysis with AV fistula presenting to the emergency department with family for evaluation of difficulty speaking and swallowing.
impression:
ESRD.
Dysphasia.
hypertensive disorders stable.
Weight loss.
.
Plan:
previous discussed long-term prognosis. She knows that if she has ALS her prognosis is extreme poor. She also understands that she may also discontinue dialysis at any time, which would also result in her .
PEG tube status post 04/20/24.
Dialysis tomorrow no acute need for dialysis today
-
-
Date of Service: April 20, 2024
CC / HPI / ROS
-
Chief Complaint:
ESRD
History of Present Illness:
ESRD Thursday
N.p.o. due to bulbar symptoms
Blood pressure stable with dry weight
Review of Systems:
No fever
N.p.o. due to swallowing dysfunction
No shortness of breath or chest pain
Labs
-
Labs:
WBC 7.5 10^3/uL (4.8-10.8) 04/13/24 04:33
RBC 4.62 10^6/uL (4.20-5.40) 04/13/24 04:33
Hgb 13.4 g/dL (12.0-16.0) 04/19/24 07:27
Hct 40.5 % (37.0-47.0) 04/19/24 07:27
Plt Count 260 10^3/uL (130-400) 04/13/24 04:33
Sodium 130 mmol/L (135-145) L 04/19/24 07:27
Potassium 4.1 mmol/L (3.5-5.1) 04/19/24 07:27
Chloride 91 mmol/L (98-107) L 04/19/24 07:27
Carbon Dioxide 30 mmol/L (22-30) 04/19/24 07:27
BUN 28 mg/dl (7-17) H 04/16/24 08:20
Creatinine 3.7 mg/dL (0.6-1.0) H 04/16/24 08:20
eGFR 12.53 04/16/24 08:20
Glucose 149 mg/dl (70-99) H 04/16/24 08:20
Calcium 9.2 mg/dl (8.4-10.2) 04/16/24 08:20
Phosphorus 3.2 mg/dl (2.5-4.5) 04/16/24 08:20
Albumin 3.8 g/dl (3.5-5.0) 04/13/24 05:35
Physical Exam
-
Vital Signs:
Vital Signs
Temp Pulse Resp BP Pulse Ox
98.0 F 100 18 129/90 94
04/20/24 15:15 04/20/24 15:15 04/20/24 15:15 04/20/24 15:15 04/20/24 15:15
Cardiovascular:: Regular rate and rhythm
Respiratory:: Bilateral: Coarse
Lung Excursion:: Normal
Abdomen:: Soft
Bowel Sounds:: Normal
Extremity Edema:: None: Bilateral:
Other Findings::
peg tube intact
--- NOTE | 2024-04-20 16:15 | VNURNOTE ---
Home Health Liaison met with patient, spouse and 2 other family members at bedside to discuss [facility] nurse/therapy, visits, schedule and homebound status. All are agreeable and understand that visits at home will be 2-3 x per week to assess and teach
medical management and new tube feed teaching. Spouse Richard willing to learn tube feeds. Patient allowed liaison to look at PEG tube, appears that [employer] connector is attached. VN brochure provided with contact information. All are aware that
VN will plan on same day visit day of discharge from . Request early DC when medically cleared. [facility] referral completed in [facility]. Tube feed Rx pending. CM to send/arrange w/[facility].
[2024-04-20 23:04] VITALS: BP 127/83
[2024-04-21 06:00] VITALS: BMI 20.8
[2024-04-21 07:05] VITALS: BP 135/82
[2024-04-21] MEDS: MIRALAX TUBE (08:44)
[2024-04-21] MEDS: PROTONIX PO (08:49)
--- NOTE | 2024-04-21 09:27 | PTCARENOTE ---
unable to obtain orthostatic VS as pt is on HD in room
[2024-04-21 09:59] LABS: Blood Urea Nitrogen 35 mg/dl (7-17); Calcium 9.3 mg/dl (8.4-10.2); Carbon Dioxide 29 mmol/L (22-30); Chloride 91 mmol/L (98-107); Estimated Creatinine Clearance 10 ml/min; Glucose 86 mg/dl (70-99); Potassium 4.3 mmol/L (3.5-5.1); Sodium 133 mmol/L (135-145); eGFR 14.92
--- NOTE | 2024-04-21 11:25 | W.PN.GI.CBS2 ---
Addendum entered and electronically signed by KATHRYN Wyman 04/21/24 11:38:
left script for tube feed and instruction for care. If able plan for continuous feeds then transition to bolus feed at home if able. 2 week GI follow up for peg check. office to call to arrange. Miralax PRN as noted with constipation during
admission.
Addendum entered and electronically signed by Gustavo Downing MD 04/21/24 11:29:
will s/o. please call us if any questions
Original Note:
Today's Communication / Plan
-
Okay to start tube feeding per dietary recommendation
Assessment / Plan
-
Pt is a 73yo with hx ESRD, HTN, uterine prolapse, chronic anemia, DDD with chronic back pain with progressive decline with difficulty swallowing and speaking with weight loss up to 40 lbs. Pt was seen by speech therapy and VSE completed with mild
oral and moderate to severe pharyngeal dysphagia recommended NPO. She is also in current work up with neurology of etiology of symptoms. In review with patient she also admits to progressive neck/back pain, GERD with Omeprazole use and
constipation. On admission CT completed with no acute malignancies and large amount of fecal material in region of rectum.
04/13 MRI brain no acute intracardial abnormality
-dysphagia/speech difficulty- concern for neuromuscular disorder- ALS. S/p PEG placement 04/20/2024
-failure to thrive
-wt loss
-constipation
-neck pain worse with movement
-severe calorie malnutrition
other med problems:
-ESRD
-uterine prolapse
PLAN:
Okay to start tube feeding per dietary recommendation
Standard PEG care as recommended
Total Time Spent with Patient (in minutes): 35
Subjective
Subjective
Date of Service: April 21, 2024
No bleeding at PEG site. Denies any abdominal pain/nausea/vomiting
Objective
Data Reviewed
Laboratory Data:
Laboratory Results
04/19/24 07:27
04/21/24 08:31
Laboratory Results
Phosphorus 3.2 mg/dl (2.5-4.5) 04/16/24 08:20
Magnesium 2.0 mg/dl (1.6-2.3) 04/16/24 08:20
Total Bilirubin 0.8 mg/dl (0.2-1.3) 04/13/24 05:35
AST 25 U/L (14-36) 04/13/24 05:35
ALT 10 U/L (0-35) 04/13/24 05:35
Alkaline Phosphatase 62 U/L (38-126) 04/13/24 05:35
Vital Signs and I&O:
Vital Signs
Temp Pulse Resp BP Pulse Ox
97.2 F 91 18 135/82 95
04/21/24 07:05 04/21/24 07:05 04/21/24 07:05 04/21/24 07:05 04/21/24 07:05
Physical Exam
Physical Exam
GI: Soft, Non Distended, Non Tender and Other (PEG site - no bleeding . )
[2024-04-21 11:44] VITALS: BP 116/71
[2024-04-21 12:13] VITALS: PULSE 92; O2SAT 92
[2024-04-21] MEDS: PEPCID 20 MG TUBE (13:09)
--- NOTE | 2024-04-21 14:37 | W.PN.HOSP.TC ---
Today's Communication/Plan
-
Initiated on tube feeding
Advance to the goal
Discharge plan
Assessment / Plan
Assessment / Plan
Impression:
Presentation with worsening aphasia and dysphagia as well as weight loss over the last 5 6 months
Aspiration risk
Moderate protein calorie malnutrition BMI 21
Constipation
Other conditions:
End-stage renal disease on hemodialysis since 04/22
Reported nephrotic range proteinuria at the time of initiation of hemodialysis.
GERD.
History of COVID-19 infection.
History of chronic anemia.
Plan:
Aphasia dysphagia with progressive weight loss.
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 Have recommended palliative care evaluation.
Reasonable concern for myasthenia gravis, occult malignancy not limited to thymoma. Paraneoplastic syndrome, ALS
Serologic workup including acetylcholine receptor antibody, CPK, inflammatory markers.
CT scan of the chest abdomen and pelvis with no evidence of occult malignancy or mass
MRI of the brain (a CT scan of the head with no acute abnormalities) with no acute abnormalities
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
Neurology plans to speak with family and Ms/ Zofia about ALS diagnosis. Also recommended to have palliative onboard.
Dysphagia with aspiration risk
Speech and swallow evaluation including VSE.
NG tube placed with plan to initiate feeding
PEG placed on 04/20
Tube feeding initiated
Patient is end-stage renal disease required Nepro tube feeding formula given requirements for end-stage renal disease patients for certain electrolyte composition and management.
Discharge plan
End-stage renal disease on hemodialysis since 04/22
Nephrology consultation.
HD schedule TTS.
Anticipated Discharge: 24 - 48 hours
Subjective/Interval History
-
Date of Service: April 21, 2024
Objective Data
-
Labs:
Laboratory Results
04/21/24
08:31
Sodium 133 L
Potassium 4.3
Chloride 91 L
Carbon Dioxide 29
BUN 35 H
Creatinine 3.2 H
Glucose 86
Calcium 9.3
Vital Signs:
Vital Signs
Temp Pulse Resp BP Pulse Ox
97.0 F 94 28 116/71 90
04/21/24 11:44 04/21/24 11:44 04/21/24 11:44 04/21/24 11:44 04/21/24 11:44
Physical Exam
-
General: Well Developed and No Apparent Distress
HEENT: Normocephalic, Atraumatic and Moist Mucous Membranes
Respiratory: Clear to Auscultation
Cardiac: Regular Rhythm and S1/S2; Negative Murmur, Rub or Gallop
GI: Soft, Nontender, Nondistended and Normal Bowel Sounds; Negative Organomegaly
Rectal: Deferred by Provider
Musculoskeletal: No Clubbing, No Cyanosis and No Edema
Skin: Negative Rash
Neuro: Awake, Alert, Oriented, AO x 3, Nonfocal/Grossly Intact and Slurred Speech
--- NOTE | 2024-04-21 15:02 | W.PN.NEPH.PH ---
Today's Communication / Plan
-
starting tube feeds/ status post dialysis
Assessment/Plan
-
73-year-old female with history of CKD on dialysis with AV fistula presenting to the emergency department with family for evaluation of difficulty speaking and swallowing.
impression:
ESRD. TTS
Dysphasia.
hypertensive disorders stable.
Weight loss.
.
Plan:
previous discussed long-term prognosis with overall poor prognosis with ALS If indeed true diagnosis
PEG tube status post 04/20/24= starting tube feeds today
Tolerated dialysis today he 500
decrease treatment to three hours.
-
-
Date of Service: April 21, 2024
CC / HPI / ROS
-
Chief Complaint:
ESRD
History of Present Illness:
ESRD Thursday
N.p.o. due to bulbar symptoms
Blood pressure stable with dry weight
Review of Systems:
No fever
N.p.o. due to swallowing dysfunction
No shortness of breath or chest pain
tube feeds via Peg
Labs
-
Labs:
WBC 7.5 10^3/uL (4.8-10.8) 04/13/24 04:33
RBC 4.62 10^6/uL (4.20-5.40) 04/13/24 04:33
Hgb 13.4 g/dL (12.0-16.0) 04/19/24 07:27
Hct 40.5 % (37.0-47.0) 04/19/24 07:27
Plt Count 260 10^3/uL (130-400) 04/13/24 04:33
Sodium 133 mmol/L (135-145) L 04/21/24 08:31
Potassium 4.3 mmol/L (3.5-5.1) 04/21/24 08:31
Chloride 91 mmol/L (98-107) L 04/21/24 08:31
Carbon Dioxide 29 mmol/L (22-30) 04/21/24 08:31
BUN 35 mg/dl (7-17) H 04/21/24 08:31
Creatinine 3.2 mg/dL (0.6-1.0) H 04/21/24 08:31
eGFR 14.92 04/21/24 08:31
Glucose 86 mg/dl (70-99) 04/21/24 08:31
Calcium 9.3 mg/dl (8.4-10.2) 04/21/24 08:31
Phosphorus 3.2 mg/dl (2.5-4.5) 04/16/24 08:20
Albumin 3.8 g/dl (3.5-5.0) 04/13/24 05:35
Physical Exam
-
Vital Signs:
Vital Signs
Temp Pulse Resp BP Pulse Ox
97.0 F 94 28 116/71 90
04/21/24 11:44 04/21/24 11:44 04/21/24 11:44 04/21/24 11:44 04/21/24 11:44
Cardiovascular:: Regular rate and rhythm
Respiratory:: Bilateral: Coarse
Lung Excursion:: Normal
Abdomen:: Soft
Bowel Sounds:: Normal
Extremity Edema:: None: Bilateral:
Other Findings::
peg tube intact
[2024-04-21 15:18] VITALS: BP 117/74
--- NOTE | 2024-04-21 16:25 | CM ---
CM reviewed chart, tube feed script provided by GI, faxed to [facility]. Per [facility], will need documentation stating why patient is on specialty formula- updated clinicals faxed to [facility]. Reviewed with [facility] liaison. CM will continue to
follow for all discharge panning needs.
Plan; home with family, [facility], [facility] for tube feeds pending set up.
[facility]
[2024-04-21] MEDS: TYLENOL 650 MG TUBE (20:31)
[2024-04-21 23:34] VITALS: BP 136/82
[2024-04-22 06:00] VITALS: BMI 20.7
[2024-04-22 07:59] VITALS: BP 129/76
[2024-04-22 08:00] VITALS: BP 125/86; BP 127/79; BP 129/76; PULSE 105; PULSE 108; PULSE 99
[2024-04-22] MEDS: TYLENOL 650 MG TUBE ×3 (09:01→20:36)
[2024-04-22] MEDS: MIRALAX TUBE (09:03)
--- NOTE | 2024-04-22 11:11 | VNURNOTE ---
Spoke with patient's primary nurse Will. Requested that nurses start basic TF teaching with patient, spouse, family members. Nurse agreeable. [facility] remains available.
--- NOTE | 2024-04-22 14:48 | CM ---
Patient seen bedside with son, discussed tentative discharge plan for early next week, clinical information faxed to [facility]. Per [facility], earliest coordination for discharge with [facility] will be Thursday. CM will continue to follow for all
discharge planning needs.
Plan; home with [facility] and [facility] tube feeds
[facility]
--- NOTE | 2024-04-22 14:57 | W.PN.HOSP.TC ---
Today's Communication/Plan
-
Ongoing arrangements for outpatient tube feeds.
Continue supportive care
Continue aspiration precautions
Likely Thursday discharge after EGD once outpatient tube feed will be set up
Assessment / Plan
Assessment / Plan
Impression:
Presentation with worsening aphasia and dysphagia as well as weight loss over the last 5 6 months
Aspiration risk
Moderate protein calorie malnutrition BMI 21
Constipation
Other conditions:
End-stage renal disease on hemodialysis since 04/22
Reported nephrotic range proteinuria at the time of initiation of hemodialysis.
GERD.
History of COVID-19 infection.
History of chronic anemia.
Plan:
Aphasia dysphagia with progressive weight loss.
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 Have recommended palliative care evaluation.
Reasonable concern for myasthenia gravis, occult malignancy not limited to thymoma. Paraneoplastic syndrome, ALS
Serologic workup including acetylcholine receptor antibody, CPK, inflammatory markers.
CT scan of the chest abdomen and pelvis with no evidence of occult malignancy or mass
MRI of the brain (a CT scan of the head with no acute abnormalities) with no acute abnormalities
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
Neurology plans to speak with family and Ms/ Zofia about ALS diagnosis. Also recommended to have palliative onboard.
Dysphagia with aspiration risk
Speech and swallow evaluation including VSE.
NG tube placed with plan to initiate feeding
PEG placed on 04/20
Tube feeding initiated
Patient is end-stage renal disease required Nepro tube feeding formula given requirements for end-stage renal disease patients for certain electrolyte composition and management.
Discharge plan
End-stage renal disease on hemodialysis since 04/22
Nephrology consultation.
HD schedule TTS.
Anticipated Discharge: > 48 hours
Subjective/Interval History
-
Date of Service: April 22, 2024
Objective Data
-
Vital Signs:
Vital Signs
Temp Pulse Resp BP Pulse Ox
97.5 F 99 16 129/76 97
04/22/24 07:59 04/22/24 07:59 04/22/24 07:59 04/22/24 07:59 04/22/24 08:31
I&O
04/21/24 04/22/24 04/23/24
06:59 06:59 06:59
Intake Total 40 / 40
Balance 40 / 40
[2024-04-22 14:58] VITALS: BP 122/78
--- NOTE | 2024-04-22 17:05 | W.PN.NEPH.PH ---
Today's Communication / Plan
-
HD tomorrow
Assessment/Plan
-
73-year-old female with history of CKD on dialysis with AV fistula presenting to the emergency department with family for evaluation of difficulty speaking and swallowing.
impression:
ESRD. TTS
Dysphasia.
hypertensive disorders stable.
Weight loss.
.
Plan:
OP TF arrangements
HD tomorrow
-
-
Date of Service: April 22, 2024
CC / HPI / ROS
-
Chief Complaint:
ESRD
History of Present Illness:
ESRD Thursday
tolerated HD yesterday
TF running
Blood pressure stable with dry weight
Review of Systems:
No fever
No shortness of breath or chest pain
tube feeds via Peg
Labs
-
Labs:
WBC 7.5 10^3/uL (4.8-10.8) 04/13/24 04:33
RBC 4.62 10^6/uL (4.20-5.40) 04/13/24 04:33
Hgb 13.4 g/dL (12.0-16.0) 04/19/24 07:27
Hct 40.5 % (37.0-47.0) 04/19/24 07:27
Plt Count 260 10^3/uL (130-400) 04/13/24 04:33
Sodium 133 mmol/L (135-145) L 04/21/24 08:31
Potassium 4.3 mmol/L (3.5-5.1) 04/21/24 08:31
Chloride 91 mmol/L (98-107) L 04/21/24 08:31
Carbon Dioxide 29 mmol/L (22-30) 04/21/24 08:31
BUN 35 mg/dl (7-17) H 04/21/24 08:31
Creatinine 3.2 mg/dL (0.6-1.0) H 04/21/24 08:31
eGFR 14.92 04/21/24 08:31
Glucose 86 mg/dl (70-99) 04/21/24 08:31
Calcium 9.3 mg/dl (8.4-10.2) 04/21/24 08:31
Phosphorus 3.2 mg/dl (2.5-4.5) 04/16/24 08:20
Albumin 3.8 g/dl (3.5-5.0) 04/13/24 05:35
Physical Exam
-
Vital Signs:
Vital Signs
Temp Pulse Resp BP Pulse Ox
97.9 F 102 16 122/78 95
04/22/24 14:58 04/22/24 14:58 04/22/24 14:58 04/22/24 14:58 04/22/24 14:58
Cardiovascular:: Regular rate and rhythm
Respiratory:: Bilateral: Coarse
Lung Excursion:: Normal
Abdomen:: Nontender and Soft
Bowel Sounds:: Normal
Extremity Edema:: None: Bilateral:
[2024-04-22 22:58] LABS: Glucose - Point of Care 202 mg/dl (70-99)
--- NOTE | 2024-04-22 23:45 | W.PN.UPDATE ---
Addendum entered and electronically signed by KATHRYN Santiago 04/23/24 06:43:
CT head with no acute findings.
Original Note:
Update Note
Progress Note Update
Called to bedside for Rapid Response overnight due to change in MS, room air desaturation and tachypnea. Per nursing she was more animated and talkative earlier in the evening but now more somnolent and guppy breathing. 95% on 2 L. VSS. Able to
slowly turn head for yes/no appropriately. ABG and lab draw attempted x1 and unable to access. Midline placed by VAT. CT head for completeness. Pupils equal slowly reactive. CT head ordered. Will transfer to ICU for possible invasive vs non-invasive
oxygen delivery. Call placed to and situation explained. Asked about what her wishes may be at this point. He wasn't sure but will discuss with his two sons.
--- NOTE | 2024-04-22 23:45 | RR ---
A Rapid Response was called on this patient, please see Rapid Response form.
Pt bed alarm alerted. Upon entering pt room, this RN along with another RN found pt adjusting herself in bed. Pt was noted to have labored breathing. SP02 checked, pt found to be in the 50's. 6L NC applied, pt SP02 spiked up to 100%. SP02 was able
to be maintained 100% at 2LNC. Pt AAOx3, able to nod appropriately to questions. BS 202, BP 127/86 HR 80 RR 20 Temp 97.6 axillary, SP02 100% 2LNC. Continuous pulse ox applied. While speaking to pt, pt became lethargic and difficult to arouse to
verbal/ sternal stimuli. Rapid called. CMP, CBC, Lactic, ABG ordered. Pt became more responsive able to nod appropriately to orientation questions. STAT CT ordered, pt transferred to ICU.
[2024-04-22 23:50] LABS: ALT (SGPT) < 10 U/L (0-35); AST (SGOT) 25 U/L (14-36); Albumin 4.2 g/dl (3.5-5.0); Alkaline Phosphatase 60 U/L (38-126); Blood Urea Nitrogen 35 mg/dl (7-17); Calcium 9.8 mg/dl (8.4-10.2); Carbon Dioxide 29 mmol/L (22-30); Chloride 87 mmol/L (98-107); Estimated Creatinine Clearance 10 ml/min; Glucose 210 mg/dl (70-99); Potassium 3.6 mmol/L (3.5-5.1); Sodium 129 mmol/L (135-145); Total Bilirubin 0.4 mg/dl (0.2-1.3); Total Protein 6.8 g/dl (6.3-8.2); eGFR 16.12
[2024-04-23] VITALS (97 sets, daily range): BP systolic 60–170; BP diastolic 31–141; PULSE 2–123; BMI 21.2
--- NOTE | 2024-04-23 00:15 | PTCARENOTE ---
Received pt. from [facility]. Bedside report received from previous RN. Pt. remains minimally responsive. Nodding head yes and no to questions. ABG drawn by respiratory therapist. STAT CT ordered. Heart rhythm sinus. Currently on nasal cannula. Lungs sound
diminished. PEG tube in abdomen. Currently clamped. Pt. receives HD treatments, anuric. Skin as documented. Vital signs stable at this time.
[2024-04-23 00:20] LABS: B.E. 4.9 mmol/L; HCO3 38.4 mmol/L (21-28); O2 Saturation % 99.6 % (94-98); PO2 257 mmHg (83-108)
[2024-04-23 00:21] LABS: O2 Therapy 2L NC
[2024-04-23 00:22] LABS: PCO2 118 mmHg (32-35); pH 7.12 (7.35-7.45)
[2024-04-23] MEDS: LEVOPHED 250 IV ×3 (01:13→19:47)
--- NOTE | 2024-04-23 02:43 | VATNOTE ---
VAT paged for more access. ML attempted in right arm which was unsuccessful. PIV established in right forearm. Primary RN at bedside, WARP SPLITTER aware of limited venous access. Will continue to monitor.
[2024-04-23 03:51] LABS: INR 0.95
[2024-04-23 03:53] LABS: Lactic Acid 1.6 mmol/L (0.7-2.0)
--- NOTE | 2024-04-23 04:00 | PTCARENOTE ---
Pt. blood gas shows c02 of 118. Bipap placed on patient. She became hypotensive BP 60s/30s. Levophed started. Issues with gaining additional IV access. VAT in room for over an hour attempting midline placement with no success. Additional peripheral
IV obtained. Levophed gtt infusing. Pt. is waking up more now. Attempting to pull off bipap mask, redirected. Vital signs stable at this time.
[2024-04-23 06:52] LABS: Blood Urea Nitrogen 38 mg/dl (7-17); Carbon Dioxide 23 mmol/L (22-30); Chloride 91 mmol/L (98-107); Estimated Creatinine Clearance 10 ml/min; Glucose 163 mg/dl (70-99); Magnesium 2.2 mg/dl (1.6-2.3); Phosphorus 5.1 mg/dl (2.5-4.5); Potassium 3.9 mmol/L (3.5-5.1); Sodium 133 mmol/L (135-145); eGFR 14.92
[2024-04-23] MEDS: MIRALAX TUBE (07:24)
--- NOTE | 2024-04-23 07:41 | PTCARENOTE ---
Received patient from casino shift manager. patient is lethargic, bipap on, unable to obtain saturation with continuous pulse ox, will obtain intermittent sats. PAtient is in sinus tach. BP low, increased levophed to 16mcg/hr. PAtient will be NPO, has new
placement of peg, patient is anuric, due to receive dialysis today. Limited IV access, call placed to IV team. Right bicep is ecchymotic, swollen. Left arm restriction obtaining pressures on right leg. Will review orders.
--- NOTE | 2024-04-23 08:01 | CON.INTV ---
Consultation
Consultation Request
Date/Time Consultation Requested: 04/23/2024753
Date/Time Consultation Performed: 04/23/2024 - 08
Requesting Provider: Dr. Valentine
Performing Provider: Dr. Casas
Reason for Consultation: Shock/Respiratory failure
Medical History
-
Chief Complaint: Difficulty speaking and swallowing/weakness
History of Present Illness:
73-year-old female with a past medical history of DARLING now diagnosed with ESRD on HD, hypertension, anemia, history of metabolic acidosis and volume overload who presented on 04/12/2024 with difficulty speaking and eating with throat and neck muscle
weakness. Symptoms were ongoing for several months. Neurology initially consulted with suspected probable motor neuron disease based on upper and lower motor neuron symptoms/signs. Nerve conduction and EMS study performed on 04/15/2024 and the
F-wave latencies were within normal limits, and the left Hyo glasses muscle showed fasciculations with increased motor unit amplitude with reduced recruitment with a single unit potential. Diagnosis still was unclear, with differential for ALS +
occult malignancy. CT chest/abdomen/pelvis with IV contrast on 04/13/2024 did not show any evidence of malignancy in the chest, abdomen or pelvis. Acetylcholine receptor binding antibody was negative. Lyme serology was negative. Her ganglioside
antibodies were also negative (seen in diverse peripheral neuropathies). Also SPEP was negative, and her immunoglobulin levels (IgG, IgM and IgA) were all WNL. She was continued on dialysis during her hospitalization. Due to failure to thrive, a
PEG tube was inserted on 04/20/2024 by GI. Plans were being made for discharge, however on the evening of 04/22/2024 a rapid response was called due to change in mental status with hypoxia and tachypnea. Blood gas showed severe acute hypercapnic
respiratory failure. She was placed onto BiPAP and transferred to the ICU for further care. After she was placed on the BiPAP she became hypotensive and required Levophed peripherally. Field Talent Qualification Specialist services consulted for additional
management/recommendations.
When I saw the patient, she was resting in bed in no acute distress. She is lethargic but still following commands. Heart rate 98, BP 108/85 and saturating 95%. She is currently on BiPAP at 16/8cmH2O bled with 3 L/min with peak pressure 21 cmH2O
and VTe: Between 300-600 cc. Her , Richard, is at bedside as well as the patient's brothers, Pio and Bear. All questions were answered.
PMHx: History of DARLING/ESRD now on dialysis, history of hyperkalemia, uterine procidentia/uterine prolapse, hypertension, anemia, history of hyponatremia, history of pulmonary edema, history of metabolic acidosis and volume overload, history of
COVID-19 (04/11/2023)
PSHx: Tubal ligation, left upper extremity brachiocephalic AVF creation (June 2023)
Past Medical History
Past Medical History: Other (Above as per HPI)
Past Surgical History: Other (Above as per HPI)
Social History
Tobacco: Non-smoker
Alcohol: None
Drug: None
Personal:
Family History
Family History: Cancer (Father: Lung cancer; mother: Pancreatic cancer), Diabetes (Mother) and Hypertension (Mother)
Allergies / Home Medications
Allergies
Allergy/AdvReac Type Severity Reaction Status Date / Time
No Known Allergies Allergy Verified 04/12/24 11:37
Home Medications
�Medication �Instructions �Recorded �Confirmed �Last Taken �Type
omeprazole 20 mg tablet,delayed 20 mg PO DAILY Gastrointestinal 07/02/23 04/12/24 12/09/23 History
release Issue
sennosides 8.6 mg tablet (senna) 8.6 mg PO DAILY Constipation 07/02/23 04/12/24 12/09/23 History
Review of Systems
-
Unable to Obtain full review of systems at this time due to: Acuity
Vitals / Labs / Diagnostic Testing
Vital Signs
Temp Pulse Resp BP Pulse Ox
98.4 F 90 19 103/53 95
04/23/24 07:00 04/23/24 06:07 04/23/24 06:07 04/23/24 05:30 04/23/24 03:00
Lab Data
04/23/24 06:18
Laboratory Results
04/22/24 04/23/24 04/23/24
23:23 00:15 03:30
PT 13.0
INR 0.95
APTT 30.0
pH Cancelled 7.12 L*
pCO2 Cancelled 118 H*
pO2 Cancelled 257 H
HCO3 Cancelled 38.4 H
O2 Delivery Level Cancelled 2l nc
Diagnostic Testing:
Physical Exam
-
HEENT: Normocephalic and Anicteric
Cardiovascular: S1/S2 and Peripheral Edema (negative)
Respiratory: Wheeze (negative), Rhonchi (negative), Non-Labored Respirations, Other (Diminished breath sounds bilaterally) and Other (Coarse breath sounds bilaterally)
GI: Soft, Non Distended, Non Tender and Normal Bowel Sounds
Neurology: Awake (However still lethargic) and Tremors (negative)
Skin: Warm and Dry
Assessment
-
Assessment: 73-year-old female with a past medical history of DARLING now diagnosed with ESRD on HD, hypertension, anemia, history of metabolic acidosis and volume overload who presented on 04/12/2024 with difficulty speaking and eating with throat and
neck muscle weakness. Symptoms were ongoing for several months. Neurology initially consulted with suspected probable motor neuron disease based on upper and lower motor neuron symptoms/signs. Nerve conduction and EMS study performed on 04/15/2024
and the F-wave latencies were within normal limits, and the left Hyo glasses muscle showed fasciculations with increased motor unit amplitude with reduced recruitment with a single unit potential. Diagnosis still was unclear, with differential for
ALS + occult malignancy. Acetylcholine receptor binding antibody was negative. Lyme serology was negative. Her ganglioside antibodies were also negative (seen in diverse peripheral neuropathies). She was continued on dialysis during her
hospitalization. Due to failure to thrive, a PEG tube was inserted on 04/20/2024 by GI. Plans were being made for discharge, however on the evening of 04/22/2024 a rapid response was called due to change in mental status with hypoxia and tachypnea.
Blood gas showed severe acute hypercapnic respiratory failure. She was placed onto BiPAP and transferred to the ICU for further care. After she was placed on the BiPAP she became hypotensive and required Levophed peripherally. Field Talent Qualification Specialist
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
history of COVID-19 (04/11/2023)
Impression:
#Acute respiratory failure with hypoxia and hypercapnia now requiring continuous BiPAP
#Shock: Unclear etiology, possibly related to hypovolemia as hypotension started after BiPAP initiated
#Failure to thrive
#Hypochloremic, hyponatremia due to reduced PO intake
#History of DARLING now with ESRD on hemodialysis via AV fistula
#Hyperglycemia (HbA1c: 5.3 on 04/12/2024)
#Generalized weakness with upper and lower motor neuron signs concerning for ALS
#History of hypertension
#GERD on PPI at home
#History of COVID-19 (March 2023)
Plan:
- Her acute respiratory failure with hypoxia/hypercapnia is due to her continued respiratory muscle weakness, with suspected ALS
- She was placed onto BiPAP yesterday evening after blood gas showed pH 7.12 with pCO2 118 � blood gas this morning looks markedly improved with pH 7.42 and pCO2 43
- If patient feels more comfortable we can give her a rest from the BiPAP and then continue with with sleep and prn during the day
- Start continuous capnometry so when she is off BiPAP we can see if she is trying to have impending respiratory failure in which case BiPAP should be restarted immediately
- Continue to trend blood gas to ensure pH + pCO2 remained stable
- Maintain SpO2 >90-94%
- Continue with aspiration precautions and keep HOB >30-45�
- Neurology on board and recs appreciated
- Of note she did have a brain MRI on 04/13/2024 which showed no acute intracranial abnormality
- Continue with vasopressors and wean to maintain MAP >65
- Unfortunately Levophed had infiltrated into her right arm, noticed this morning by HOD CARRIER
- Phentolamine administered this morning
- Continue to closely monitor and check frequent neurovascular checks today, q1hr for 4 hrs, then q4hr for at least 24 hrs, more frequency if acute change in appearance or pulses noted
- If any acute change in her right arm is noticed then would need immediate consult to vascular surgery
- Unclear if antibiotics are indicated however due to her acute change and hypotension with hypoxia, agree with empiric antibiotics for now while trending WBC and monitoring for fever
- Will check blood culture and sputum culture (if she can produce a decent sample)
- CXR this morning shows no convincing evidence for an acute cardiopulmonary process, although her right hemidiaphragm is elevated (likely due to atelectasis)
- If she remains afebrile with absent leukocytosis and cultures remain negative over the next 48 hours then consider stopping antibiotics altogether or giving short course (3-5 days)
- Continue with dialysis as per nephrology
- Trend sNa and monitor [K]
- Replete electrolytes with K>4, Mg>2
- Maintain euglycemia with goal BG 140-180
- Trend H/H and transfuse if needed to keep Hb>7g/dL; keep plt>20k, unless there is concern for bleeding then keep plt>50k
- prn nebulized bronchodilators - not currently bronchospastic
- Incentive spirometer encouraged 10x per hour for at least 4 hrs a day
- DVT ppx: Start HSQ
After she came to the ICU she had a discussion with nephrology and she is now DNR/DNI but okay for full medical management otherwise
Continue ICU level care for this critically ill patient
Critical care statement: A total of 38 minutes of critical care time was provided for this patient today. This includes management of unstable vital signs, evaluation of the patient at bedside, reviewing the patient's pertinent medical records
including radiographs, microbiology, laboratory evaluations, and discussion with primary team, consultants, pharmacy, nutrition, physical therapy, case management, charge nurse, critical care nursing, and respiratory therapy.
Data:
Brain MRI 04/13/2024: No acute intracranial abnormality noted.
--- NOTE | 2024-04-23 08:15 | VATNOTE ---
PIV attempted to be obtained in R arm as pt is R arm only. Unable to access any vein after multiple attempts, foot line attempted as well. ML attempted overnight, unsuccessful. Recommended that welder experimental place central line, or IR be consulted.
Nothing more can be done by VAT. Large R arm AC infiltrate noted by this VAT RN. Area is grossly ecchymotic and leaking. Hyaluranidase requested by this VAT to hospitalist. Will continue to monitor.
--- NOTE | 2024-04-23 08:18 | W.PN.HOSP.TC ---
Today's Communication/Plan
-
see A/P
Assessment / Plan
Assessment / Plan
Impression:
Presentation with worsening aphasia and dysphagia as well as weight loss over the last 5 6 months
Aspiration risk
Moderate protein calorie malnutrition BMI 21
Constipation
Other conditions:
End-stage renal disease on hemodialysis since 04/22
Reported nephrotic range proteinuria at the time of initiation of hemodialysis.
GERD.
History of COVID-19 infection.
History of chronic anemia.
Plan:
Aphasia dysphagia with progressive weight loss.
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 Have recommended palliative care evaluation.
Reasonable concern for myasthenia gravis, occult malignancy not limited to thymoma. Paraneoplastic syndrome, ALS
Serologic workup including acetylcholine receptor antibody (negative), CPK (WNL), inflammatory markers (WNL).
CT scan of the chest abdomen and pelvis with no evidence of occult malignancy or mass
MRI of the brain (a CT scan of the head with no acute abnormalities) with no acute abnormalities
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
Neurology plans to speak with family and Ms/ Zofia about ALS diagnosis. Also recommended to have palliative onboard.
Dysphagia with aspiration risk
Speech and swallow evaluation including VSE.
NG tube placed with plan to initiate feeding
PEG placed on 04/20
Tube feeding initiated
Patient is end-stage renal disease required Nepro tube feeding formula given requirements for end-stage renal disease patients for certain electrolyte composition and management.
Discharge plan
End-stage renal disease on hemodialysis since 04/22
Nephrology consultation.
HD schedule TTS.
RN INFUSION 04/22 overnight for change in MS, desaturation and tachypnea; ?aspiration event
Acute hypoxic respiratory failure
?Septic shock from aspiration pneumonia
Placed on BIPAP, cont non-invasion O2 support
Cont Levophed for BP support , wean as tolerated
Hold further tube feed
Check CXR
Start empiric Zosyn
CT head ordered for completeness sake, showed no acute intracranial abnormality.
DW RN
Extensive discussion with on the phone. [facility] [place] addressed, code status changed to DNR DNI. For now, continue maximal support.
code status: DNR DNI
CC Mx 40 min
Anticipated Discharge: > 48 hours
Subjective/Interval History
-
Date of Service: April 23, 2024
Objective Data
-
Labs:
Laboratory Results
04/22/24 04/22/24 04/23/24
23:15 23:23 00:15
WBC Cancelled
Hgb Cancelled
Hct Cancelled
Plt Count Cancelled
PT
INR
APTT
HCO3 Cancelled 38.4 H
Sodium 129 L
Potassium 3.6
Chloride 87 L
Carbon Dioxide 29
BUN 35 H
Creatinine 3.0 H
Glucose 210 H
Calcium 9.8
Total Bilirubin 0.4
AST 25
ALT < 10
Alkaline Phosphatase 60
04/23/24 04/23/24 04/23/24
00:28 03:30 06:00
WBC Cancelled
Hgb Cancelled
Hct Cancelled
Plt Count Cancelled
PT 13.0
INR 0.95
APTT 30.0
HCO3 Pending
Sodium
Potassium
Chloride
Carbon Dioxide
BUN
Creatinine
Glucose
Calcium
Total Bilirubin
AST
ALT
Alkaline Phosphatase
04/23/24 04/23/24
06:18 07:00
WBC Pending
Hgb Pending
Hct Pending
Plt Count Pending
PT
INR
APTT
HCO3
Sodium 133 L
Potassium 3.9
Chloride 91 L
Carbon Dioxide 23
BUN 38 H
Creatinine 3.2 H
Glucose 163 H
Calcium 10.0
Total Bilirubin
AST
ALT
Alkaline Phosphatase
Vital Signs:
Vital Signs
Temp Pulse Resp BP Pulse Ox
36.9 C 90 19 103/53 95
04/23/24 07:00 04/23/24 06:07 04/23/24 06:07 04/23/24 05:30 04/23/24 03:00
I&O
04/22/24 04/23/24 04/24/24
06:59 06:59 06:59
Intake Total 40 / 40 247.6 / 303.9 56.3 / 56.3
Balance 40 / 40 247.6 / 303.9 56.3 / 56.3
Review of Systems
-
Unable to obtain full review of systems at this time due to: Acuity
Physical Exam
-
General: Well Developed, Respiratory Distress and Appears Chronically Ill
HEENT: Normocephalic, Atraumatic, Moist Mucous Membranes and Oxygen (BIPAP)
Respiratory: Other (labored breathing )
Cardiac: Regular Rhythm and S1/S2; Negative Murmur, Rub or Gallop
GI: Soft, Nontender, Nondistended and Normal Bowel Sounds; Negative Organomegaly
Rectal: Deferred by Provider
Musculoskeletal: No Clubbing, No Cyanosis and No Edema
Skin: Negative Rash
Neuro: Awake
Data Reviewed
-
Labs: Labs Reviewed by me
--- NOTE | 2024-04-23 08:22 | W.PN.NEPH.PH ---
Today's Communication / Plan
-
GOC discussion
Assessment/Plan
-
73-year-old female with history of CKD on dialysis with AV fistula presenting to the emergency department with family for evaluation of difficulty speaking and swallowing.
impression:
ESRD. TTS
Dysphasia.
hypertensive disorders stable.
Weight loss.
Hypercarbia
ALS
.
Plan:
Hold on dialysis for now, electrolytes stable
Check chest x-ray
Maintain BiPAP
Keep mean arterial pressure greater than 65
I discussed with the patient. She has already been considering her poor prognosis since even before admission to the hospital. She understands that her diagnosis of ALS portends a very poor prognosis with high mortality in the first year. She has
not had a chance to truly discuss this with her or her sons. She had agreed to PEG tube in order to allow herself more time to do this. She also understood that she had the option of discontinuing dialysis as well. This morning she told
me that she would not want to be intubated but that she wanted CPR if needed.
I called her son Pio and updated him on the current situation. He will bring his father to the hospital with him this morning to speak with her.
Critical care time spent 40 minutes
-
-
Date of Service: April 23, 2024
CC / HPI / ROS
-
Chief Complaint:
ESRD
History of Present Illness:
ESRD Thursday
Events overnight noted. Patient became more lethargic and gargling. Was placed on BiPAP and sent to the ICU. Pressors were started.
Critically ill in ICU
TF via PEG on hold
Review of Systems:
No fever
No shortness of breath or chest pain
Labs
-
Labs:
Sodium 133 mmol/L (135-145) L 04/23/24 06:18
Potassium 3.9 mmol/L (3.5-5.1) 04/23/24 06:18
Chloride 91 mmol/L (98-107) L 04/23/24 06:18
Carbon Dioxide 23 mmol/L (22-30) 04/23/24 06:18
BUN 38 mg/dl (7-17) H 04/23/24 06:18
Creatinine 3.2 mg/dL (0.6-1.0) H 04/23/24 06:18
eGFR 14.92 04/23/24 06:18
Glucose 163 mg/dl (70-99) H 04/23/24 06:18
Calcium 10.0 mg/dl (8.4-10.2) 04/23/24 06:18
Phosphorus 5.1 mg/dl (2.5-4.5) H 04/23/24 06:18
Albumin 4.2 g/dl (3.5-5.0) 04/22/24 23:15
Physical Exam
-
Vital Signs:
Vital Signs
Temp Pulse Resp BP Pulse Ox
98.4 F 90 19 103/53 95
04/23/24 07:00 04/23/24 06:07 04/23/24 06:07 04/23/24 05:30 04/23/24 03:00
Cardiovascular:: Regular rate and rhythm
Respiratory:: Bilateral: Coarse
Lung Excursion:: Normal
Abdomen:: Nontender and Soft
Bowel Sounds:: Normal
Extremity Edema:: None: Bilateral:
--- NOTE | 2024-04-23 08:26 | PTCARENOTE ---
Levophed infiltration into right arm. 22 in right hand, changed infusion site, weaned levo to 6mcgs
[2024-04-23 09:07] LABS: HCO3 27.9 mmol/L (21-28); O2 Saturation % 91.4 % (94-98); PCO2 43 mmHg (32-35); pH 7.42 (7.35-7.45)
[2024-04-23 09:19] LABS: O2 Therapy bipap
[2024-04-23] MEDS: REGITINE 10 ML SC (09:20)
[2024-04-23] MEDS: REGITINE 10 MG SC (09:20)
[2024-04-23 09:21] LABS: PO2 55 mmHg (83-108)
--- NOTE | 2024-04-23 09:58 | VATNOTE ---
After speaking w/ pharmacy, phentolamine is preferred treatment for Levo infiltrate. Phentolamine ordered per protocol and administered per protocol. Warm blanket applied over R arm. Will continue to monitor.
[2024-04-23] MEDS: PROTONIX IV 40 MG IV (10:26)
[2024-04-23] MEDS: NSS (PRESERVATIVE FREE) 10 ML IV (10:26)
[2024-04-23] MEDS: ZOSYN 50 IV ×2 (10:26→17:36)
--- NOTE | 2024-04-23 12:04 | PTCARENOTE ---
Patient's family present at bedside, right IJ placed by IR at bedside. Will administer ofirmev. break from bipap given, patient now on 4L nasal cannula.
[2024-04-23] MEDS: OFIRMEV 100 IV (13:02)
--- NOTE | 2024-04-23 13:06 | PN.IRAD.UPD ---
Update Note - IRAD
- -
WENT BEDSIDE, CLEANED, DRAPED AND PREPPED PATIENT'S RIGHT SIDED TLC, PULLED CATHETER BACK 6CM, RESUTURED AND REDRESSED SITE, NO COMPLAINTS, AP
[2024-04-23 14:21] LABS: Hematocrit 37.1 % (37.0-47.0); Hemoglobin 11.8 g/dL (12.0-16.0); Mean Corp Hgb Conc. 31.8 g/dL (33.0-37.0); Mean Corpuscular Hgb 30.7 pg (27.0-31.0); Mean Corpuscular Volume 96.6 fL (81.0-99.0); Mean Platelet Volume 9.2 fL (7.4-10.4); Platelet Count 303 10^3/uL (130-400); Red Blood Cell Count 3.84 10^6/uL (4.20-5.40); Red Cell Dist. Width 13.5 % (11.5-14.5); White Blood Cell Count 11.7 10^3/uL (4.8-10.8)
--- NOTE | 2024-04-23 14:30 | VATNOTE ---
R arm infiltrate reassessed after administration of phentolamine. Area appears to be smaller, still grossly ecchymotic. Will continue to monitor.
--- NOTE | 2024-04-23 16:35 | W.PN.NEPH.HD ---
Assessment
-
Seen on HD. no new complaints. on NC only. VSS, off pressors, access ok
Progress Note - Hemodialysis
-
Date of Service: April 23, 2024
Duration: 3 hours
Potassium Bath: 2
Calcium Bath: 2.5
Opti-Dialyzer: 160
Ultrafiltration: Other (none)
Blood Flow: 400
Dialysate Flow: 600
Heparin: no
EPO: no
[2024-04-23] MEDS: HEPARIN SC (17:09)
--- NOTE | 2024-04-23 17:43 | PTCARENOTE ---
Patient required levophed to be turned back on after dialysis. on 6mcgs. Patient's family at bedside, patient resting.
--- NOTE | 2024-04-23 20:00 | PTCARENOTE ---
Received patient at 1900. Pt. currently in bed. Lethargic but arousable. Oriented. Communicating via handwriting on paper. Denies pain/discomfort at this time. Afebrile. Heart rhythm sinus. Currently on nasal cannula, will go on BIPAP HS. Lungs
sound diminished. PEG tube is in place, tube feeds currently on hold. Anuric, received HD earlier today. Skin as documented. Discussed plan of care with patient. Vital signs stable at this time.
[2024-04-24] VITALS (51 sets, daily range): BP systolic 83–146; BP diastolic 28–115; PULSE 2–88; BMI 21.9
--- NOTE | 2024-04-24 | PTCARENOTE ---
Pt. assessment unchanged. Currently on bipap mask. Once bipap was applied, pt. became hypotensive. Levophed gtt titrated accordingly. Vital signs stable at this time.
[2024-04-24] MEDS: ZOSYN 50 IV ×3 (01:02→18:03)
[2024-04-24] MEDS: HEPARIN 5000 UNITS SC ×4 (01:02→23:55)
[2024-04-24] MEDS: LEVOPHED 250 IV ×4 (01:02→20:04)
[2024-04-24] MEDS: MORPHINE SULFATE 1 MG IV ×2 (03:44→11:08)
[2024-04-24 04:30] LABS: Venous Blood Gas B.E. 2.2 mmol/L (-4 to +4); Venous Blood Gas HCO3 30.8 mmol/L (22-27); Venous Blood Gas O2 Sat % 99.3 %; Venous Blood Gas pCO2 67 mmHg (35-48); Venous Blood Gas pH 7.27 (7.32-7.43); Venous Blood Gas pO2 121 mmHg (30-50)
[2024-04-24 04:48] LABS: Hemoglobin 11.9 g/dL (12.0-16.0); Mean Corp Hgb Conc. 33.1 g/dL (33.0-37.0); Mean Corpuscular Hgb 31.3 pg (27.0-31.0); Mean Corpuscular Volume 94.7 fL (81.0-99.0); Mean Platelet Volume 9.2 fL (7.4-10.4); Platelet Count 329 10^3/uL (130-400); Red Cell Dist. Width 13.6 % (11.5-14.5)
[2024-04-24 04:55] LABS: Blood Urea Nitrogen 18 mg/dl (7-17); Calcium 8.8 mg/dl (8.4-10.2); Carbon Dioxide 32 mmol/L (22-30); Chloride 90 mmol/L (98-107); Estimated Creatinine Clearance 16 ml/min; Glucose 129 mg/dl (70-99); Magnesium 1.9 mg/dl (1.6-2.3); Phosphorus 2.2 mg/dl (2.5-4.5); Potassium 3.5 mmol/L (3.5-5.1); Sodium 131 mmol/L (135-145); eGFR 26.22
[2024-04-24] MEDS: KCL ELIXIR 20 MEQ TUBE (06:21)
[2024-04-24] MEDS: PROTONIX IV 40 MG IV (07:47)
[2024-04-24] MEDS: NSS (PRESERVATIVE FREE) 10 ML IV (07:48)
--- NOTE | 2024-04-24 08:00 | PTCARENOTE ---
recd handoff bedside. resting. eyes open, nods/shakes head very minimally. able to write. occas smiles. moves all extrem weakly. GT clamped, site small amount old drainage. gown changed. R upper arm ecchymotic. tolerating 4l nc levophed
infusing as ordered/titrated, see VS.
--- NOTE | 2024-04-24 08:09 | W.PN.HOSP.TC ---
Today's Communication/Plan
-
see A/P
Assessment / Plan
Assessment / Plan
Impression:
Presentation with worsening aphasia and dysphagia as well as weight loss over the last 5 6 months
Aspiration risk
Moderate protein calorie malnutrition BMI 21
Constipation
Other conditions:
End-stage renal disease on hemodialysis since 04/22
Reported nephrotic range proteinuria at the time of initiation of hemodialysis.
GERD.
History of COVID-19 infection.
History of chronic anemia.
Plan:
Aphasia dysphagia with progressive weight loss.
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 Have recommended palliative care evaluation.
Reasonable concern for myasthenia gravis, occult malignancy not limited to thymoma. Paraneoplastic syndrome, ALS
Serologic workup including acetylcholine receptor antibody (negative), CPK (WNL), inflammatory markers (WNL).
CT scan of the chest abdomen and pelvis with no evidence of occult malignancy or mass
MRI of the brain (a CT scan of the head with no acute abnormalities) with no acute abnormalities
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
Neurology plans to speak with family and Ms/ Zofia about ALS diagnosis. Also recommended to have palliative onboard.
Dysphagia with aspiration risk
Speech and swallow evaluation including VSE.
NG tube placed with plan to initiate feeding
PEG placed on 04/20
Tube feeding initiated
Patient is end-stage renal disease required Nepro tube feeding formula given requirements for end-stage renal disease patients for certain electrolyte composition and management.
Discharge plan
End-stage renal disease on hemodialysis since 04/22
Nephrology consultation.
HD schedule TTS.
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
Acute hypoxic respiratory failure
?Septic shock from aspiration pneumonia
Placed on BIPAP, weaned to 7L NC, cont non-invasion O2 support and wean O2 as tolerated
Cont Levophed for BP support , wean as tolerated
Add midodrine 5 mg TID for BP support
Hold further tube feed for now
CXR 04/23 noted slightly increased left basilar/perihilar airspace disease.
Started empiric Zosyn
CT head was ordered for completeness sake, showed no acute intracranial abnormality.
DW RN
Extensive discussion with on the phone.
code status: DNR DNI , confirmed with on the phone
CC Mx 40 min
Anticipated Discharge: > 48 hours
Subjective/Interval History
-
Date of Service: April 24, 2024
Objective Data
-
Labs:
Laboratory Results
04/24/24
04:14
WBC 12.0 H
Hgb 11.9 L
Hct 36.0 L
Plt Count 329
Sodium 131 L
Potassium 3.5
Chloride 90 L
Carbon Dioxide 32 H
BUN 18 H
Creatinine 2.0 H
Glucose 129 H
Calcium 8.8
Vital Signs:
Vital Signs
Temp Pulse Resp BP Pulse Ox
36.3 C 73 12 100/37 100
04/24/24 07:00 04/24/24 07:30 04/24/24 07:30 04/24/24 07:30 04/24/24 07:30
I&O
04/23/24 04/24/24 04/25/24
06:59 06:59 06:59
Intake Total 247.6 / 303.9 778.8 / 823.8
Balance 247.6 / 303.9 778.8 / 823.8
Review of Systems
-
Unable to obtain full review of systems at this time due to: Acuity
Physical Exam
-
General: Well Developed, Respiratory Distress, Appears Chronically Ill and Other (lethargic)
HEENT: Normocephalic, Atraumatic, Moist Mucous Membranes and Oxygen (7L NC)
Respiratory: Other (labored breathing )
Cardiac: Regular Rhythm and S1/S2; Negative Murmur, Rub or Gallop
GI: Soft, Nontender, Nondistended and Normal Bowel Sounds; Negative Organomegaly
Rectal: Deferred by Provider
Musculoskeletal: No Clubbing, No Cyanosis and No Edema
Skin: Negative Rash
Neuro: Awake
Psych: Calm
Data Reviewed
-
Labs: Labs Reviewed by me
--- NOTE | 2024-04-24 08:17 | W.PN.INTV ---
Today's Communication / Plan
Recommendations
Empiric antibiotics
Monitor cultures
Continue BiPAP with sleep and prn during the day
Trend blood gas to ensure pH + pCO2 improved/remained stable
If patient declines to use BiPAP then she should be made comfort care as her pCO2 will continue to rise, she will become obtunded, and then will aspirate with hypoxia with eventual cardiac arrest
Aspiration precautions
HD as per nephrology
Midodrine started in an attempt to wean her off Levophed
Maintain MAP >65
Continue ICU level care for this critically ill patient
Assessment
-
Assessment: 73-year-old female with a past medical history of DARLING now diagnosed with ESRD on HD, hypertension, anemia, history of metabolic acidosis and volume overload who presented on 04/12/2024 with difficulty speaking and eating with throat and
neck muscle weakness. Symptoms were ongoing for several months. Neurology initially consulted with suspected probable motor neuron disease based on upper and lower motor neuron symptoms/signs. Nerve conduction and EMS study performed on 04/15/2024
and the F-wave latencies were within normal limits, and the left Hyo glasses muscle showed fasciculations with increased motor unit amplitude with reduced recruitment with a single unit potential. Diagnosis still was unclear, with differential for
ALS + occult malignancy. Acetylcholine receptor binding antibody was negative. Lyme serology was negative. Her ganglioside antibodies were also negative (seen in diverse peripheral neuropathies). She was continued on dialysis during her
hospitalization. Due to failure to thrive, a PEG tube was inserted on 04/20/2024 by GI. Plans were being made for discharge, however on the evening of 04/22/2024 a rapid response was called due to change in mental status with hypoxia and tachypnea.
Blood gas showed severe acute hypercapnic respiratory failure. She was placed onto BiPAP and transferred to the ICU for further care. After she was placed on the BiPAP she became hypotensive and required Levophed peripherally. [employer] Insulator
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
history of COVID-19 (04/11/2023)
Impression:
#Acute respiratory failure with hypoxia and hypercapnia now requiring intermittent BiPAP
#Shock: Unclear etiology, possibly related to hypovolemia as hypotension started after BiPAP initiated
#Failure to thrive
#Hypochloremic, hyponatremia due to reduced PO intake
#History of DARLING now with ESRD on hemodialysis via AV fistula
#Hyperglycemia (HbA1c: 5.3 on 04/12/2024)
#Generalized weakness with upper and lower motor neuron signs concerning for ALS
#History of hypertension
#GERD on PPI at home
#History of COVID-19 (March 2023)
Plan:
- Her acute respiratory failure with hypoxia/hypercapnia is due to her continued respiratory muscle weakness, with suspected ALS
- She was placed onto BiPAP on 04/22/2024 evening after blood gas showed pH 7.12 with pCO2 118 � blood gas on AM of 04/23 looked markedly improved with pH 7.42 and pCO2 43
- On the evening of 04/23, she only wore the BiPAP for about 4-1/2 hours before taking off, and blood gas morning shows worsening acute on chronic hypercapnia (AB.27/67)
- Ideally would use BiPAP with sleep and prn during the day with nasal cannula all of the remaining times --> if she refuses to wear the BiPAP then she should be transitioned to comfort care
- Continue continuous capnometry so when she is off BiPAP to monitor for impending respiratory failure in which case BiPAP should be restarted immediately, unless she declines
- Continue to trend blood gas to ensure pH + pCO2 remains stable
- Maintain SpO2 >90-94%
- Continue with aspiration precautions and keep HOB >30-45�
- Neurology on board and recs appreciated
- Of note she did have a brain MRI on 04/13/2024 which showed no acute intracranial abnormality
- Continue with vasopressors and wean to maintain MAP >65
- Unfortunately Levophed had infiltrated into her right arm, noticed AM of 04/23 by SHIP CLEANER
- Phentolamine administered on 04/23/2024
- Continue to closely monitor and check frequent neurovascular checks, q1hr for 4 hrs, then q4hr for at least 24 hrs, more frequency if acute change in appearance or pulses noted
- If any acute change in her right arm is noticed then would need immediate consult to vascular surgery
- Start midodrine and up-titrate as needed
- Unclear if antibiotics are indicated however due to her acute change and hypotension with hypoxia, agree with empiric antibiotics (Zosyn) for now while trending WBC and monitoring for fever
- Follow up blood culture (checked today); check sputum culture (if she can produce a decent sample)
- CXR AM of 04/23 showed no convincing evidence for an acute cardiopulmonary process, although her right hemidiaphragm is elevated (likely due to atelectasis)
- If she remains afebrile with absent leukocytosis and cultures remain negative over the next 48 hours then consider stopping antibiotics altogether or giving short course (3-5 days)
- Unable to check procal given her CKD now on HD
- Continue with dialysis as per nephrology
- Trend sNa and monitor [K]
- Replete electrolytes with K>4, Mg>2
- Maintain euglycemia with goal BG 140-180
- Trend H/H and transfuse if needed to keep Hb>7g/dL; keep plt>20k, unless there is concern for bleeding then keep plt>50k
- prn nebulized bronchodilators - not currently bronchospastic
- Incentive spirometer encouraged 10x per hour for at least 4 hrs a day
- DVT ppx: HSQ
After she came to the ICU she had a discussion with nephrology and she is now DNR/DNI but okay for full medical management otherwise
Continue ICU level care for this critically ill patient
Critical care statement: A total of 42 minutes of critical care time was provided for this patient today. This includes management of unstable vital signs, evaluation of the patient at bedside, reviewing the patient's pertinent medical records
including radiographs, microbiology, laboratory evaluations, and discussion with primary team, consultants, pharmacy, nutrition, physical therapy, case management, charge nurse, critical care nursing, and respiratory therapy.
Data:
Brain MRI 04/13/2024: No acute intracranial abnormality noted.
CXR 04/23/2024: No convincing acute cardiopulmonary process.
Subjective Dataa
Subjective Data
Date of Service:
Date of Service: April 24, 2024
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
Subjective:
Patient was seen and evaluated this morning. Only used her BiPAP overnight for few hours before taking it off due to intolerance. Blood gas this morning shows worsening hypercapnia with pH 7.27, pCO2 67. She is agreeable to putting the BiPAP back
on but she is miserable on it. Currently, heart rate 83, BP 104/41 and saturating 99% on 7 L/min. She is sleepy but arousable and answering all my questions. Remains on Levophed at 8mcg/min. She denies chest pain, CHESTER, nausea.
Review of Systems
General: Other (Negative unless mentioned above)
Objective Data
Data Reviewed
Vital Signs / I&O / Oxygen:
Vital Signs
Temp Pulse Resp BP Pulse Ox
97.4 F 95 12 137/77 100
04/24/24 07:00 04/24/24 09:43 04/24/24 07:30 04/24/24 09:43 04/24/24 07:30
Intake and Output
04/23/24 04/24/24 04/25/24
06:59 06:59 06:59
Intake Total 247.6 / 303.9 778.8 / 823.8 45 / 45
Balance 247.6 / 303.9 778.8 / 823.8 45 / 45
SaO2 100
Nasal Cannula flow liters per 6
minute
Physical Exam
General: Respiratory Distress (negative), Comfortable, Chills (negative) and Sweats (negative)
HEENT: Normocephalic and Anicteric
Cardiovascular: S1-S2, Rub (negative) and Peripheral Edema (negative)
Respiratory: Wheeze (negative), Rhonchi (negative), Non-Labored Respirations, Stridor (negative), Other (Coarse breath sounds heard bilaterally) and Other (Diminished breath sounds on the right hemithorax)
GI: Soft, Non Distended, Non Tender and Normal Bowel Sounds
Neurology: Tremors (negative) and Lethargic (Easily arousable and answering my questions appropriately)
Skin: Warm, Dry, Cyanosis (negative) and Jaundice (negative)
Labs/Micro/Reports
Lab Data
04/24/24 04:14
04/24/24 04:14
--- NOTE | 2024-04-24 09:13 | W.PN.NEPH.PH ---
Today's Communication / Plan
-
echo
Assessment/Plan
-
73-year-old female with history of CKD on dialysis with AV fistula presenting to the emergency department with family for evaluation of difficulty speaking and swallowing.
impression:
ESRD. TTS
Dysphasia.
hypertensive disorders stable.
Weight loss.
Hypercarbia
ALS
.
Plan:
next HD thursday
hypotension is concerning
check echo
keep MAP > 65
await BCx
check baseline cortisol
DNR/DNI
critical care time 31 minutes
-
-
Date of Service: April 24, 2024
CC / HPI / ROS
-
Chief Complaint:
ESRD
History of Present Illness:
ESRD Thursday
tolerated HD yesterday, limited/no UF
however, now back on levophed
O2 stable on 6L NC
Critically ill in ICU
Review of Systems:
No fever
No shortness of breath or chest pain
Labs
-
Labs:
WBC 12.0 10^3/uL (4.8-10.8) H 04/24/24 04:14
RBC 3.80 10^6/uL (4.20-5.40) L 04/24/24 04:14
Hgb 11.9 g/dL (12.0-16.0) L 04/24/24 04:14
Hct 36.0 % (37.0-47.0) L 04/24/24 04:14
Plt Count 329 10^3/uL (130-400) 04/24/24 04:14
Sodium 131 mmol/L (135-145) L 04/24/24 04:14
Potassium 3.5 mmol/L (3.5-5.1) 04/24/24 04:14
Chloride 90 mmol/L (98-107) L 04/24/24 04:14
Carbon Dioxide 32 mmol/L (22-30) H 04/24/24 04:14
BUN 18 mg/dl (7-17) H 04/24/24 04:14
Creatinine 2.0 mg/dL (0.6-1.0) H 04/24/24 04:14
eGFR 26.22 04/24/24 04:14
Glucose 129 mg/dl (70-99) H 04/24/24 04:14
Calcium 8.8 mg/dl (8.4-10.2) 04/24/24 04:14
Phosphorus 2.2 mg/dl (2.5-4.5) L 04/24/24 04:14
Albumin 4.2 g/dl (3.5-5.0) 04/22/24 23:15
Physical Exam
-
Vital Signs:
Vital Signs
Temp Pulse Resp BP Pulse Ox
97.4 F 73 12 100/37 100
04/24/24 07:00 04/24/24 07:30 04/24/24 07:30 04/24/24 07:30 04/24/24 07:30
Cardiovascular:: Regular rate and rhythm
Respiratory:: Bilateral: Coarse
Lung Excursion:: Normal
Abdomen:: Nontender and Soft
Bowel Sounds:: Normal
Extremity Edema:: None: Bilateral:
[2024-04-24] MEDS: ProAmatine 5 MG TUBE ×3 (09:43→17:57)
--- NOTE | 2024-04-24 10:57 | CHAP ---
Visit requested by nursing. Sarah has declined a lot since I saw her last weekend. Tried to determine her needs, read from Scripture. Emotional and spiritual support provided, along with a prayer blanket. Assurance given of our on-going
availability.
[2024-04-24 11:27] LABS: Cortisol, Random 98.2 ug/dl
--- NOTE | 2024-04-24 11:52 | RESPNOTE ---
Respiratory: patient asked for Bilevel mask to be removed. Wore it for about an hour. RN explained to patient on 4 LPM.
--- NOTE | 2024-04-24 12:30 | PTCARENOTE ---
more comfortable on 4l. no other change. resting/sleeping.
[2024-04-24 14:15] LABS: Venous Blood Gas B.E. 1.6 mmol/L (-4 to +4); Venous Blood Gas HCO3 31.7 mmol/L (22-27); Venous Blood Gas O2 Sat % 99.5 %; Venous Blood Gas pO2 140 mmHg (30-50)
[2024-04-24 14:19] LABS: Venous Blood Gas O2 Therapy 7L/min
[2024-04-24 14:20] LABS: Venous Blood Gas pCO2 83 mmHg (35-48); Venous Blood Gas pH 7.19 (7.32-7.43)
--- NOTE | 2024-04-24 15:27 | PTCARENOTE ---
family present, brightly awake, positioned. small amount ooze much less than earlier R upper arm. silicone border foam dressing applied with small mesalt under for drainage. ecchymotic. elevated on pillow.
[2024-04-24] MEDS: TYLENOL 650 MG TUBE (17:57)
--- NOTE | 2024-04-24 18:13 | PTCARENOTE ---
positioned as able for comfort. family remains bedside. using neck pillow, bedpillows, and motorized bed to assist with finding position that is comfortable. med with tylenol for mild pain, watching TV, no distress. arm remains bruised, small
specks old dark blood at times.
--- NOTE | 2024-04-24 20:00 | PTCARENOTE ---
Rec'd pt resting in bed, family at bedside, pt unable to talk, nods head appropriately, communicated by writing, weakly moves feet and hands, SR, levophed gtt at 5mic- to keep sbp > 90- see flow sheet for titrations,R arm w/ edema, ecchymotic, LE
edema, skin warm/dry, O2 incr to 6 litersfor sat 80's when turning, lungs decr, hypo bowel sounds, abd soft, peg clamped, anuric
[2024-04-25] VITALS (83 sets, daily range): BP systolic 49–183; BP diastolic 22–104; PULSE 2–91; BMI 22.2
--- NOTE | 2024-04-25 | PTCARENOTE ---
sys reviewed, placed on bipap 12/5 w/ 4 liters by resp therapist, tylenol 650mg via tube given at 0015 for pain, , does not want to take morphine; CHG bath done, linens changed
[2024-04-25] MEDS: TYLENOL 650 MG TUBE (00:16)
[2024-04-25] MEDS: ZOSYN 50 IV ×3 (01:49→17:15)
--- NOTE | 2024-04-25 03:30 | PTCARENOTE ---
sys reviewed, requested bipap off, changed to 6 liters nc, pt moaning, refusing morphine or any sedation
[2024-04-25 03:31] LABS: Venous Blood Gas B.E. 0.1 mmol/L (-4 to +4); Venous Blood Gas HCO3 27.7 mmol/L (22-27); Venous Blood Gas pCO2 59 mmHg (35-48); Venous Blood Gas pH 7.28 (7.32-7.43); Venous Blood Gas pO2 121 mmHg (30-50)
[2024-04-25 03:44] LABS: Hematocrit 31.9 % (37.0-47.0); Hemoglobin 10.3 g/dL (12.0-16.0); Mean Corp Hgb Conc. 32.3 g/dL (33.0-37.0); Mean Corpuscular Hgb 31.1 pg (27.0-31.0); Mean Corpuscular Volume 96.4 fL (81.0-99.0); Mean Platelet Volume 9.1 fL (7.4-10.4); Platelet Count 282 10^3/uL (130-400); Red Blood Cell Count 3.31 10^6/uL (4.20-5.40); Red Cell Dist. Width 13.8 % (11.5-14.5); White Blood Cell Count 13.5 10^3/uL (4.8-10.8)
[2024-04-25 04:07] LABS: Blood Urea Nitrogen 27 mg/dl (7-17); Calcium 9.1 mg/dl (8.4-10.2); Carbon Dioxide 27 mmol/L (22-30); Chloride 89 mmol/L (98-107); Estimated Creatinine Clearance 10 ml/min; Glucose 81 mg/dl (70-99); Magnesium 1.9 mg/dl (1.6-2.3); Phosphorus 3.2 mg/dl (2.5-4.5); Potassium 4.2 mmol/L (3.5-5.1); Sodium 126 mmol/L (135-145); eGFR 16.12
--- NOTE | 2024-04-25 05:20 | PTCARENOTE ---
sat 80%, changed to 10 liters midflow by resp therapsit
[2024-04-25] MEDS: MORPHINE SULFATE 1 MG IV ×3 (07:10→17:17)
--- NOTE | 2024-04-25 07:54 | W.PN.INTV ---
Today's Communication / Plan
Recommendations
Continue BiPAP as able. Unfortunately patient refuses at times
Intermittent norepinephrine
Check blood sugars
Remains on broad-spectrum antibiotics
Unfortunately, long-term prognosis remains poor
Appears that primary insult may be neurological based on prior neurology correspondence
Family to decide on comfort measures later today
Assessment
-
Assessment: 73-year-old female with a past medical history of DARLING now diagnosed with ESRD on HD, hypertension, anemia, history of metabolic acidosis and volume overload who presented on 04/12/2024 with difficulty speaking and eating with throat and
neck muscle weakness. Symptoms were ongoing for several months. Neurology initially consulted with suspected probable motor neuron disease based on upper and lower motor neuron symptoms/signs. Nerve conduction and EMS study performed on 04/15/2024
and the F-wave latencies were within normal limits, and the left Hyo glasses muscle showed fasciculations with increased motor unit amplitude with reduced recruitment with a single unit potential. Diagnosis still was unclear, with differential for
ALS + occult malignancy. Acetylcholine receptor binding antibody was negative. Lyme serology was negative. Her ganglioside antibodies were also negative (seen in diverse peripheral neuropathies). She was continued on dialysis during her
hospitalization. Due to failure to thrive, a PEG tube was inserted on 04/20/2024 by GI. Plans were being made for discharge, however on the evening of 04/22/2024 a rapid response was called due to change in mental status with hypoxia and tachypnea.
Blood gas showed severe acute hypercapnic respiratory failure. She was placed onto BiPAP and transferred to the ICU for further care. After she was placed on the BiPAP she became hypotensive and required Levophed peripherally. 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
history of COVID-19 (04/11/2023)
Impression:
#Acute respiratory failure with hypoxia and hypercapnia now requiring intermittent BiPAP
Refusing BiPAP
#Shock: Unclear etiology, possibly related to hypovolemia as hypotension started after BiPAP initiated
#Failure to thrive
#Hypochloremic, hyponatremia due to reduced PO intake
#History of DARLING now with ESRD on hemodialysis via AV fistula
#Hyperglycemia (HbA1c: 5.3 on 04/12/2024)
#Generalized weakness with upper and lower motor neuron signs concerning for ALS
#History of hypertension
#GERD on PPI at home
#History of COVID-19 (March 2023)
Plan/recommendations:
Unfortunately, patient is clinically worse, continues to refuse BiPAP
However when she is placed on BiPAP due to unresponsiveness, she seems to respond, suggesting mental status may be primarily from varying CO2 levels
Chest exam with poor inspiratory effort at times, intermittent coarse breath sounds
Concerned regarding ALS noted. Neurology note from 04/16/2024 reviewed. Concern regarding upper and lower motor neuron disease noted
Moving forward, this is a difficult situation
After discussing case with son by phone, DNR status is confirmed, patient does not want to be on mechanical ventilation, does not want life support, CPR
Given progressive symptoms over the past few days, worrisome for progressive neuromuscular disease
Will need to make a decision as to whether we need to focus more on comfort given that patient is refusing BiPAP
Continue with BiPAP as able for now
Presently on BiPAP and appears comfortable but still not responding to my exam
Persistent hypotension noted
Was weaned off norepinephrine but not had to be resumed
Continue Midodine
Maintain SBP > 90
Hemodialysis noted, pending Wednesday 04/26
Not sure whether this is feasible given labile blood pressure
Nephrology following
remains on empiric antibiotics for now, Zosyn
No convincing source of infection for now
Chest x-ray without acute findings
Hyponatremia noted
Nephrology following
Follow electrolytes
Check fingerstick as needed
Intermittent hypoglycemia noted
Unfortunately, patient unable to take consistent p.o. intake at this time
DVT prophylaxis: Remains on subcutaneous heparin
GI prophylaxis: Remains on Protonix
The above was reviewed at length with critical care nursing, respiratory care, pharmacy
Reviewed above with primary service
Updated son by phone at length 04/25
Unfortunately, long-term prognosis remains poor
Critical care statement: A total of 32 minutes of critical care time was provided for this patient today. This includes management of unstable vital signs, evaluation of the patient at bedside, reviewing the patient's pertinent medical records
including radiographs, microbiology, laboratory evaluations, and discussion with primary team, consultants, pharmacy, nutrition, physical therapy, case management, charge nurse, critical care nursing, and respiratory therapy.
Data:
Brain MRI 04/13/2024: No acute intracranial abnormality noted.
CXR 04/23/2024: No convincing acute cardiopulmonary process.
Subjective Dataa
Subjective Data
Date of Service:
Date of Service: April 25, 2024
Patient unfortunately remains critically ill. Continues to refuse BiPAP, intermittently refusing morphine but accepting of at times. This morning, she had some agonal breathing, unresponsive. Placed back on BiPAP. Following about 30 minutes,
became agitated, throwing BiPAP off, moving around. Unfortunately not answering questions or following commands for me during my multiple assessments during the morning but according the nurse, patient is interactive at times. Blood pressure not
decreased, requiring reinitiation of norepinephrine
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
Objective Data
Data Reviewed
Vital Signs / I&O / Oxygen:
Vital Signs
Temp Pulse Resp BP Pulse Ox
97.4 F 113 17 155/77 99
04/25/24 03:28 04/25/24 07:30 04/25/24 07:30 04/25/24 07:30 04/25/24 07:30
Intake and Output
04/24/24 04/25/24 04/26/24
06:59 06:59 06:59
Intake Total 778.8 / 823.8 851.4 / 851.4
Balance 778.8 / 823.8 851.4 / 851.4
SaO2 99
Nasal Cannula flow liters per 6
minute
Physical Exam
General: Respiratory Distress (Agonal breathing this morning, improved on BiPAP)
HEENT: Normocephalic and Anicteric
Cardiovascular: S1-S2, Regular Rhythm, Rub (negative) and Peripheral Edema (negative)
Respiratory: Wheeze (negative), Rhonchi (negative), Stridor (negative), Other and Other (Poor inspiratory effort, decreased breath sounds)
GI: Soft, Non Distended, Non Tender and Normal Bowel Sounds
Neurology: Lethargic (Not arousable during my exam)
Skin: Warm, Dry, Cyanosis (negative) and Jaundice (negative)
Labs/Micro/Reports
Lab Data
04/25/24 03:24
04/25/24 03:24
Microbiology
04/24/24 04:14 Blood/Venous Blood Culture - Preliminary
No Growth in 24 hours- Final report to follow
[2024-04-25] MEDS: ProAmatine TUBE (09:00)
[2024-04-25] MEDS: NSS (PRESERVATIVE FREE) 10 ML IV (09:00)
[2024-04-25] MEDS: PROTONIX IV 40 MG IV (09:00)
[2024-04-25] MEDS: HEPARIN 5000 UNITS SC ×2 (09:01→17:15)
--- NOTE | 2024-04-25 09:41 | PTCARENOTE ---
patient received, agitated, restless. dyspneic. unable to speak. eyes wide open, follows simple commands. tearing off gown, leads. medicated with morphine per prn order. remained agitated and with increased work of breathing. coarse diminished
breath sounds bilaterally. monitor sinus tachycardia. right IJ triple line capped with good blood returns. Bipap applied by RT. right arm swelling with ecchymosis, pinpoint open area draining dark bloody fluid. area redressed. anuric. peg in place,
no residual. safe environment maintained.
--- NOTE | 2024-04-25 09:50 | WOUNDNOTE ---
WON RN NOTE: Asked to see patient s/p R upper arm infiltrate. Reviewed IV nurse notes, still following. Nurse Hemalatha at bedside stated she changed dressing on R arm upper arm this morning with alginate and dry dressing. Reports less swollen now with
some bloody drainage. RN requested wound care come back later as she just managed to get patient to calm down and is now resting. Will follow later if able.
--- NOTE | 2024-04-25 10:24 | PTCARENOTE ---
Addendum entered by Petra Davis RN 04/25/24 11:20:
hypotensive, sats 80's on 15 liters on bipap. Senior Clinical Research Associate area field person updated. wet end helper having goals of care conversation with patient sons on phone
Original Note:
patient resting and calm. no respirtory distress on bipap., hypotensive. levophed resumed
[2024-04-25] MEDS: ProAmatine 5 MG TUBE ×3 (10:28→17:15)
--- NOTE | 2024-04-25 10:58 | W.PN.HOSP.TC ---
Today's Communication/Plan
-
Continue BiPAP
Continue norepinephrine.
Aspiration precautions
Antibiotics per
Ongoing goals of care discussion
Assessment / Plan
Assessment / Plan
Impression:
Acute hypercarbic respiratory failure in the settings of progressive neurologic disorder suspected ALS.
Toxic metabolic encephalopathy secondary to hypercarbic respiratory failure.
Profound hypotension in the settings of acidosis requiring vasopressors
Presentation with worsening aphasia and dysphagia as well as weight loss over the last 5 6 months
Aspiration risk
Moderate protein calorie malnutrition BMI 21
Constipation
Other conditions:
End-stage renal disease on hemodialysis since 04/22
Reported nephrotic range proteinuria at the time of initiation of hemodialysis.
GERD.
History of COVID-19 infection.
History of chronic anemia.
Plan:
Acute hypercarbic respiratory failure with toxic metabolic encephalopathy
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
Profound hypotension, shock in the settings of respiratory acidosis.
Persistent agitation with concern for inability to tolerate BiPAP.
Currently remains on BiPAP and obtunded.
Profound hypotension remains on norepinephrine with addition of midodrine
Empiric antibiotics
Aphasia dysphagia with progressive weight loss.
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 Have recommended palliative care evaluation.
Reasonable concern for myasthenia gravis, occult malignancy not limited to thymoma. Paraneoplastic syndrome, ALS
Serologic workup including acetylcholine receptor antibody (negative), CPK (WNL), inflammatory markers (WNL).
CT scan of the chest abdomen and pelvis with no evidence of occult malignancy or mass
MRI of the brain (a CT scan of the head with no acute abnormalities) with no acute abnormalities
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
Neurology plans to speak with family and Ms/ Zofia about ALS diagnosis. Also recommended to have palliative onboard.
Dysphagia with aspiration risk
Speech and swallow evaluation including VSE.
NG tube placed with plan to initiate feeding
PEG placed on 04/20
Tube feeding initiated
Patient is end-stage renal disease required Nepro tube feeding formula given requirements for end-stage renal disease patients for certain electrolyte composition and management.
Discharge plan
End-stage renal disease on hemodialysis since 04/22
Nephrology consultation.
HD schedule TTS.
Ongoing goals of care discussion.
Patient with progressive ALS, admitted with severe aphasia and dysphagia, aspiration risk now developed rapidly progressive hypercarbic respiratory failure with metabolic encephalopathy.
Remains hypotensive requiring pressors.
In addition end-stage renal disease with concern of tolerance to HD given profound hypotension and shock.
CODE STATUS DNR
Awaiting family decision with goal for comfort care as per patient/family directives
Anticipated Discharge: > 48 hours
Subjective/Interval History
-
Date of Service: April 25, 2024
Objective Data
-
Labs:
Laboratory Results
04/25/24
03:24
WBC 13.5 H
Hgb 10.3 L
Hct 31.9 L
Plt Count 282
Sodium 126 L
Potassium 4.2
Chloride 89 L
Carbon Dioxide 27
BUN 27 H
Creatinine 3.0 H
Glucose 81
Calcium 9.1
Vital Signs:
Vital Signs
Temp Pulse Resp BP Pulse Ox
97.6 F 102 20 77/40 95
04/25/24 08:00 04/25/24 09:30 04/25/24 09:30 04/25/24 10:28 04/25/24 09:30
I&O
04/24/24 04/25/24 04/26/24
06:59 06:59 06:59
Intake Total 778.8 / 823.8 851.4 / 851.4
Output Total 0 / 0
Balance 778.8 / 823.8 851.4 / 851.4 0 / 0
Physical Exam
-
General: Well Developed and No Apparent Distress
HEENT: Normocephalic, Atraumatic and Moist Mucous Membranes
Respiratory: Clear to Auscultation
Cardiac: Regular Rhythm and S1/S2; Negative Murmur, Rub or Gallop
GI: Soft, Nontender, Nondistended and Normal Bowel Sounds; Negative Organomegaly
Rectal: Deferred by Provider
Musculoskeletal: No Clubbing, No Cyanosis and No Edema
Skin: Negative Rash
Neuro: Other (Lethargic)
--- NOTE | 2024-04-25 11:24 | W.PN.NEPH.PH ---
Today's Communication / Plan
-
see plan
Assessment/Plan
-
73-year-old female with history of CKD on dialysis with AV fistula presenting to the emergency department with family for evaluation of difficulty speaking and swallowing.
impression:
ESRD. TTS
Dysphasia.
hypertensive disorders stable.
Weight loss.
Hypercarbia
ALS
.
Plan:
noted persistent hypotension on intermittent pressors , cortisol high
remains on BIPAP
grave prognosis, possible that she is actively dying
ICU spoke to family
family to visit her today and make decision
DNR/DNI status
critical care time 31 minutes
d/w ICU and nursing
-
-
Date of Service: April 25, 2024
CC / HPI / ROS
-
Chief Complaint:
ESRD
History of Present Illness:
ESRD Thursday
tolerated HD Thursday, limited/no UF
however, now back on levophed
on BIPAP
Critically ill in ICU
Review of Systems:
unresponsive, s/p low dose morphine for agitation this am
Labs
-
Labs:
WBC 13.5 10^3/uL (4.8-10.8) H 04/25/24 03:24
RBC 3.31 10^6/uL (4.20-5.40) L 04/25/24 03:24
Hgb 10.3 g/dL (12.0-16.0) L 04/25/24 03:24
Hct 31.9 % (37.0-47.0) L 04/25/24 03:24
Plt Count 282 10^3/uL (130-400) 04/25/24 03:24
Sodium 126 mmol/L (135-145) L 04/25/24 03:24
Potassium 4.2 mmol/L (3.5-5.1) 04/25/24 03:24
Chloride 89 mmol/L (98-107) L 04/25/24 03:24
Carbon Dioxide 27 mmol/L (22-30) 04/25/24 03:24
BUN 27 mg/dl (7-17) H 04/25/24 03:24
Creatinine 3.0 mg/dL (0.6-1.0) H 04/25/24 03:24
eGFR 16.12 04/25/24 03:24
Glucose 81 mg/dl (70-99) 04/25/24 03:24
Calcium 9.1 mg/dl (8.4-10.2) 04/25/24 03:24
Phosphorus 3.2 mg/dl (2.5-4.5) 04/25/24 03:24
Albumin 4.2 g/dl (3.5-5.0) 04/22/24 23:15
Physical Exam
-
Vital Signs:
Vital Signs
Temp Pulse Resp BP Pulse Ox
97.6 F 77 19 111/53 85
04/25/24 08:00 04/25/24 11:00 04/25/24 11:00 04/25/24 11:00 04/25/24 11:10
Cardiovascular:: Regular rate and rhythm
Lung Excursion:: Abnormal (decreased resp effort on BIAPP)
Abdomen:: Nontender and Soft
Extremity Edema:: None: Bilateral:
Mabry Catheter: No
[2024-04-25 11:26] LABS: Glucose - Point of Care 109 mg/dl (70-99)
[2024-04-25] MEDS: LEVOPHED 250 IV ×2 (12:54→21:45)
--- NOTE | 2024-04-25 13:02 | PTCARENOTE ---
patient reassessed. patient restless, tachypneic, moaning. medicated with morphine per prn order. remains on Bipap. levophed per work list. son at bedside. updated
--- NOTE | 2024-04-25 15:56 | WOUNDNOTE ---
R ARM IV SITE
--- NOTE | 2024-04-25 15:57 | WOUNDNOTE ---
WON RN NOTE: R upper arm with bruising and small amt serosanguineous bloody drainage from IV insertion site. Adaptic, Alginate, Abd pad and Spandage applied. R arm elevated on pillow. Family at bedside and son assisted by lifting R arm, so that I
could apply dressing. Will update wound care orders, care plan and follow as needed.
--- NOTE | 2024-04-25 17:27 | PTCARENOTE ---
patient reassessed, care provided. levophed,oxygen wean per work list. family at bedside. medicated with morphine per prn order
--- NOTE | 2024-04-25 20:00 | PTCARENOTE ---
Rec'd pt sleeping, when assessed, can slightly move toes and arms, nonverbal, SR w/ occas pvc, to keep sbp > 90 w/ levophed- see flow sheet for titrations, weak distal pulses, + anasarca, R arm ecchy, dsg intact, Left arm fistula w/ bruit/ thrill,
O2 via bipap 12/5 w/ 10 liters, sat 97, lungs decr, coarse,, hypo bowel sounds, no bm, abd soft, npo, peg clamped, anuric
[2024-04-26] VITALS (59 sets, daily range): BP systolic 95–139; BP diastolic 38–113; PULSE 2–88; BMI 22.4
--- NOTE | 2024-04-26 00:15 | PTCARENOTE ---
sys reviewed, CHG bath done, linens changed, morphine 1mg iv given for discomfort
[2024-04-26] MEDS: MORPHINE SULFATE 1 MG IV ×3 (00:18→07:50)
[2024-04-26] MEDS: HEPARIN 5000 UNITS SC ×4 (00:19→23:50)
[2024-04-26] MEDS: ZOSYN 50 IV ×3 (02:01→17:23)
[2024-04-26 03:35] LABS: Hematocrit 28.6 % (37.0-47.0); Hemoglobin 9.2 g/dL (12.0-16.0); Mean Corp Hgb Conc. 32.2 g/dL (33.0-37.0); Mean Corpuscular Hgb 30.7 pg (27.0-31.0); Mean Corpuscular Volume 95.3 fL (81.0-99.0); Mean Platelet Volume 9.1 fL (7.4-10.4); Platelet Count 282 10^3/uL (130-400); Red Cell Dist. Width 13.8 % (11.5-14.5); White Blood Cell Count 12.4 10^3/uL (4.8-10.8)
[2024-04-26 04:18] LABS: Blood Urea Nitrogen 36 mg/dl (7-17); Calcium 9.1 mg/dl (8.4-10.2); Carbon Dioxide 26 mmol/L (22-30); Chloride 86 mmol/L (98-107); Estimated Creatinine Clearance 8 ml/min; Glucose 88 mg/dl (70-99); Magnesium 1.9 mg/dl (1.6-2.3); Sodium 123 mmol/L (135-145); eGFR 11.08
--- NOTE | 2024-04-26 04:26 | PTCARENOTE ---
sys reviewed, morphine 1mg iv given for pain
[2024-04-26] MEDS: LEVOPHED 250 IV ×2 (06:03→16:34)
[2024-04-26] MEDS: PROTONIX IV 40 MG IV (07:37)
[2024-04-26] MEDS: NSS (PRESERVATIVE FREE) 10 ML IV (07:37)
[2024-04-26] MEDS: ProAmatine 5 MG TUBE ×3 (07:37→17:23)
--- NOTE | 2024-04-26 07:59 | PTCARENOTE ---
Addendum entered by Petra Davis RN 04/26/24 08:05:
prior shift vitals captured. unable to verify accuracy
Original Note:
report received. patient assessments per work list. patient able to indicate she is afraid,increased nonverbal pain cues. support given. patient tremulous and restless. crying. medicated with morphine per prn order. bipap continues. coarse breath
sounds bilaterally. abdomen soft. anuric. peg in place, patent for medications. safe environment maintained
--- NOTE | 2024-04-26 08:25 | W.PN.INTV ---
Today's Communication / Plan
Recommendations
Continue supportive care
Morphine, Ativan as needed
Comfort is a priority according to family
Will hold on withdrawing other medications until multiple family members have visited later today
Eventual transition to comfort measures, withdrawal of care when family ready
Assessment
-
Assessment: 73-year-old female with a past medical history of DARLING now diagnosed with ESRD on HD, hypertension, anemia, history of metabolic acidosis and volume overload who presented on 04/12/2024 with difficulty speaking and eating with throat and
neck muscle weakness. Symptoms were ongoing for several months. Neurology initially consulted with suspected probable motor neuron disease based on upper and lower motor neuron symptoms/signs. Nerve conduction and EMS study performed on 04/15/2024
and the F-wave latencies were within normal limits, and the left Hyo glasses muscle showed fasciculations with increased motor unit amplitude with reduced recruitment with a single unit potential. Diagnosis still was unclear, with differential for
ALS + occult malignancy. Acetylcholine receptor binding antibody was negative. Lyme serology was negative. Her ganglioside antibodies were also negative (seen in diverse peripheral neuropathies). She was continued on dialysis during her
hospitalization. Due to failure to thrive, a PEG tube was inserted on 04/20/2024 by GI. Plans were being made for discharge, however on the evening of 04/22/2024 a rapid response was called due to change in mental status with hypoxia and tachypnea.
Blood gas showed severe acute hypercapnic respiratory failure. She was placed onto BiPAP and transferred to the ICU for further care. After she was placed on the BiPAP she became hypotensive and required Levophed peripherally. Whale Fisherman
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
history of COVID-19 (04/11/2023)
Impression:
#Acute respiratory failure with hypoxia and hypercapnia now requiring intermittent BiPAP
#Shock: Unclear etiology, possibly related to hypovolemia as hypotension started after BiPAP initiated
#Failure to thrive
#Hypochloremic, hyponatremia due to reduced PO intake
#History of DARLING now with ESRD on hemodialysis via AV fistula
#Hyperglycemia (HbA1c: 5.3 on 04/12/2024)
#Generalized weakness with upper and lower motor neuron signs concerning for ALS
#History of hypertension
#GERD on PPI at home
#History of COVID-19 (March 2023)
Plan/recommendations:
Unfortunately, patient is remains critically ill, required reinitiation of norepinephrine yesterday p.m.
Received few doses of morphine over the last 24 hours, seems to help patient while on BiPAP
This morning, per nursing, patient admitted to being anxious and scared
For me she denies pain
This is the most awake I have seen her, she is following commands
Continues to tolerate BiPAP
Concerned regarding ALS noted. Neurology note from 04/16/2024 reviewed. Concern regarding upper and lower motor neuron disease noted
Moving forward,
Extensive discussion with multiple family members including both sons, yesterday p.m. 04/25
Decision has been made to focus on comfort measures
Family would like to continue with current treatment plan awaiting multiple family members to visit
However, they are okay with pain medication, anxiety medication as needed
They want to continue with pressors and other current medications and not withdraw care completely until family around to visit later today
Continue with morphine as needed
Ativan as needed as well
Maintain on BiPAP for now
Continue pressors for now
Persistent hypotension noted
Was weaned off norepinephrine but not had to be resumed
Continue Midodine
Maintain SBP > 90
Hemodialysis will not be pursued today. Family is aware, nephrology is aware
remains on empiric antibiotics for now, Zosyn
No convincing source of infection for now
Chest x-ray without acute findings
Hyponatremia noted
No further workup, no further blood work
DVT prophylaxis: Remains on subcutaneous heparin
GI prophylaxis: Remains on Protonix
The above was reviewed at length with critical care nursing, respiratory care, pharmacy
Reviewed above with primary service
Updated son by phone at length 04/26
Also updated multiple family members multiple times throughout the day 04/25
Unfortunately, long-term prognosis remains poor
Critical care statement: A total of 31 minutes of critical care time was provided for this patient today. This includes management of unstable vital signs, evaluation of the patient at bedside, reviewing the patient's pertinent medical records
including radiographs, microbiology, laboratory evaluations, and discussion with primary team, consultants, pharmacy, nutrition, physical therapy, case management, charge nurse, critical care nursing, and respiratory therapy.
Data:
Brain MRI 04/13/2024: No acute intracranial abnormality noted.
CXR 04/23/2024: No convincing acute cardiopulmonary process.
Subjective Dataa
Subjective Data
Date of Service:
Date of Service: April 26, 2024
Chief Complaint: Whale Fisherman Follow Up and Pulmonary Follow Up
Subjective:
Unfortunately, patient remains critically ill, remains on 7 mcg of norepinephrine. Received occasional dose more seen through the night, has been maintained on BiPAP since yesterday. She is admitting to being scared and anxious to nursing this
morning. Patient denies shortness of breath, chest pain, abdominal pain to me. She is following commands
Objective Data
Data Reviewed
Vital Signs / I&O / Oxygen:
Vital Signs
Temp Pulse Resp BP Pulse Ox
98 F 89 23 139/81 100
04/26/24 08:07 04/26/24 07:32 04/26/24 07:32 04/26/24 07:37 04/26/24 07:32
Intake and Output
04/25/24 04/26/24 04/27/24
06:59 06:59 06:59
Intake Total 851.4 / 851.4 837.5 / 867.5
Output Total 0 / 0
Balance 851.4 / 851.4 837.5 / 867.5
SaO2 100
Nasal Cannula flow liters per 8
minute
Physical Exam
General: Comfortable (On BiPAP)
HEENT: Normocephalic and Anicteric
Cardiovascular: S1-S2, Regular Rhythm, Rub (negative), Peripheral Edema (negative) and Other (Left upper extremity AV fistula)
Respiratory: Wheeze (negative), Rhonchi (negative), Stridor (negative) and Other (Poor inspiratory effort, decreased breath sounds)
GI: Soft, Non Distended, Non Tender and Normal Bowel Sounds
Neurology: Lethargic (Opens eyes, follows commands. Cannot lift arms up off bed)
Skin: Warm, Dry, Cyanosis (negative) and Jaundice (negative)
Labs/Micro/Reports
Lab Data
04/26/24 03:05
04/26/24 03:05
Microbiology
04/24/24 04:14 Blood/Venous Blood Culture - Preliminary
No Growth in 48 hours- Final report to follow
[2024-04-26] MEDS: ATIVAN 0.5 MG IV ×3 (11:12→19:50)
[2024-04-26] MEDS: NSS (PRESERVATIVE FREE) 0.25 ML IV ×2 (11:13→15:16)
--- NOTE | 2024-04-26 11:38 | W.PN.NEPH.PH ---
Today's Communication / Plan
-
no further HD
Assessment/Plan
-
73-year-old female with history of CKD on dialysis with AV fistula presenting to the emergency department with family for evaluation of difficulty speaking and swallowing.
impression:
ESRD. TTS
Dysphasia.
hypertensive disorders stable.
Weight loss.
Hypercarbia
ALS
.
Plan:
noted persistent hypotension on intermittent pressors
remains on BIPAP
grave prognosis, possible that she is actively dying
ICU spoke to family and agree with no further HD
DNR/DNI status , considering withdrawal care when all family is here
d/w ICU and nursing
will s/o, call wiht ?s
-
-
Date of Service: April 26, 2024
CC / HPI / ROS
-
Chief Complaint:
ESRD
History of Present Illness:
ESRD Thursday
tolerated HD Thursday, limited/no UF
BP low intermittently on levophed
on BIPAP
Critically ill in ICU
Review of Systems:
unresponsive, on low dose morphine for agitation and comfort
Labs
-
Labs:
WBC 12.4 10^3/uL (4.8-10.8) H 04/26/24 03:05
RBC 3.00 10^6/uL (4.20-5.40) L 04/26/24 03:05
Hgb 9.2 g/dL (12.0-16.0) L 04/26/24 03:05
Hct 28.6 % (37.0-47.0) L 04/26/24 03:05
Plt Count 282 10^3/uL (130-400) 04/26/24 03:05
Sodium 123 mmol/L (135-145) L 04/26/24 03:05
Potassium 4.0 mmol/L (3.5-5.1) 04/26/24 03:05
Chloride 86 mmol/L (98-107) L 04/26/24 03:05
Carbon Dioxide 26 mmol/L (22-30) 04/26/24 03:05
BUN 36 mg/dl (7-17) H 04/26/24 03:05
Creatinine 4.1 mg/dL (0.6-1.0) H* 04/26/24 03:05
eGFR 11.08 04/26/24 03:05
Glucose 88 mg/dl (70-99) 04/26/24 03:05
Calcium 9.1 mg/dl (8.4-10.2) 04/26/24 03:05
Phosphorus 3.2 mg/dl (2.5-4.5) 04/25/24 03:24
Albumin 4.2 g/dl (3.5-5.0) 04/22/24 23:15
Physical Exam
-
Vital Signs:
Vital Signs
Temp Pulse Resp BP Pulse Ox
98 F 72 16 119/59 98
04/26/24 11:25 04/26/24 09:00 04/26/24 09:00 04/26/24 09:00 04/26/24 09:57
Cardiovascular:: Regular rate and rhythm
Lung Excursion:: Abnormal (decreased resp effort on BIAPP)
Abdomen:: Nontender and Soft
Extremity Edema:: +1: Bilateral:
Mabry Catheter: No
--- NOTE | 2024-04-26 11:51 | W.PN.HOSP.TC ---
Today's Communication/Plan
-
Remains obtunded on BiPAP.
Continue supportive care
Ongoing goals of care discussion with family gathering and possibly transition to comfort care later today.
Assessment / Plan
Assessment / Plan
Impression:
Acute hypercarbic respiratory failure in the settings of progressive neurologic disorder suspected ALS.
Toxic metabolic encephalopathy secondary to hypercarbic respiratory failure.
Profound hypotension in the settings of acidosis requiring vasopressors
Presentation with worsening aphasia and dysphagia as well as weight loss over the last 5 6 months
Aspiration risk
Moderate protein calorie malnutrition BMI 21
Constipation
Other conditions:
End-stage renal disease on hemodialysis since 04/22
Reported nephrotic range proteinuria at the time of initiation of hemodialysis.
GERD.
History of COVID-19 infection.
History of chronic anemia.
Plan:
Acute hypercarbic respiratory failure with toxic metabolic encephalopathy
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
Profound hypotension, shock in the settings of respiratory acidosis.
Persistent agitation with concern for inability to tolerate BiPAP.
Currently remains on BiPAP and obtunded.
Profound hypotension remains on norepinephrine with addition of midodrine
Empiric antibiotics
Aphasia dysphagia with progressive weight loss.
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 Have recommended palliative care evaluation.
Reasonable concern for myasthenia gravis, occult malignancy not limited to thymoma. Paraneoplastic syndrome, ALS
Serologic workup including acetylcholine receptor antibody (negative), CPK (WNL), inflammatory markers (WNL).
CT scan of the chest abdomen and pelvis with no evidence of occult malignancy or mass
MRI of the brain (a CT scan of the head with no acute abnormalities) with no acute abnormalities
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
Neurology plans to speak with family and Ms/ Zofia about ALS diagnosis. Also recommended to have palliative onboard.
Dysphagia with aspiration risk
Speech and swallow evaluation including VSE.
NG tube placed with plan to initiate feeding
PEG placed on 04/20
Tube feeding initiated
Patient is end-stage renal disease required Nepro tube feeding formula given requirements for end-stage renal disease patients for certain electrolyte composition and management.
Discharge plan
End-stage renal disease on hemodialysis since 04/22
Nephrology consultation.
HD schedule TTS.
Ongoing goals of care discussion.
Patient with progressive ALS, admitted with severe aphasia and dysphagia, aspiration risk now developed rapidly progressive hypercarbic respiratory failure with metabolic encephalopathy.
Remains hypotensive requiring pressors.
In addition end-stage renal disease with concern of tolerance to HD given profound hypotension and shock.
CODE STATUS DNR
Awaiting family decision with goal for comfort care as per patient/family directives
Anticipated Discharge: > 48 hours
Subjective/Interval History
-
Date of Service: April 26, 2024
Objective Data
-
Labs:
Laboratory Results
04/26/24
03:05
WBC 12.4 H
Hgb 9.2 L
Hct 28.6 L
Plt Count 282
Sodium 123 L
Potassium 4.0
Chloride 86 L
Carbon Dioxide 26
BUN 36 H
Creatinine 4.1 H*
Glucose 88
Calcium 9.1
Vital Signs:
Vital Signs
Temp Pulse Resp BP Pulse Ox
98 F 72 16 119/59 98
04/26/24 11:25 04/26/24 09:00 04/26/24 09:00 04/26/24 09:00 04/26/24 09:57
I&O
04/25/24 04/26/24 04/27/24
06:59 06:59 06:59
Intake Total 851.4 / 851.4 837.5 / 867.5 241.4 / 241.4
Output Total 0 / 0
Balance 851.4 / 851.4 837.5 / 867.5 241.4 / 241.4
Physical Exam
-
General: Well Developed and No Apparent Distress
HEENT: Normocephalic, Atraumatic and Moist Mucous Membranes
Respiratory: Clear to Auscultation
Cardiac: Regular Rhythm and S1/S2; Negative Murmur, Rub or Gallop
GI: Soft, Nontender, Nondistended and Normal Bowel Sounds; Negative Organomegaly
Rectal: Deferred by Provider
Musculoskeletal: No Clubbing, No Cyanosis and No Edema
Skin: Negative Rash
Neuro: Other (Lethargic)
--- NOTE | 2024-04-26 12:19 | PTCARENOTE ---
reassessed, increased anxiety,medicated with ativan per prn order. oxygen, levophed wean per work list
[2024-04-26] MEDS: DILAUDID 0.25 MG IV ×3 (13:03→23:56)
--- NOTE | 2024-04-26 15:43 | PTCARENOTE ---
patient reassessed, increaesd anxiety. incontinent very large amount watery liquid stool. rectal trumpet placed, complete care given. after care, and repositioning. pulse oximeter dropped to 70. oxygen increased to 15 liters. son at bedside, updated
with changes
--- NOTE | 2024-04-26 16:34 | CM ---
Patient seen at bedside with 2 sons present. Patient family indicated that more family was coming in tonight and plan is for further discussion on comfort care per chart review. CM will continue to follow for discharge planning needs.
Plan; pending physician discussion on goals of care
--- NOTE | 2024-04-26 19:50 | PTCARENOTE ---
Rec'd pt resting in bed, ativan 0.5 mg iv given for anx, weakly moves feet and arms , nhi 2mm, sluggish, nonverbal, SR w/ occas pvc, to keep sbp > 90 w/ levo- presently at 4 darryn, see flow sheet for titrations, weak distal pulses,+ anasarca, O2 via
bipap 12/5 w/ 15 liters, sat 100, lungs decr, coarse, + bowel sounds, rectal trumpet to str drainage bag draining liquid brown stool, peg clamped, no vomiting, anuric
--- NOTE | 2024-04-26 23:00 | PTCARENOTE ---
Resp decr Bipap to 12/5 w/ 5 liters
[2024-04-27] VITALS (39 sets, daily range): BP systolic 45–131; BP diastolic 26–84; PULSE 2–79; BMI 22.1
--- NOTE | 2024-04-27 | PTCARENOTE ---
sys reviewed, sat 85, bipap 12/5 , incr to 15 liters, dilaudid 0.5 mg iv given for pain, CHG bath done, linens changed, IJ dsg changed
[2024-04-27] MEDS: ZOSYN 50 IV ×2 (02:14→10:11)
[2024-04-27] MEDS: ATIVAN 0.5 MG IV (04:08)
--- NOTE | 2024-04-27 04:15 | PTCARENOTE ---
sys reviewed, ativan 0.5 mg given
--- NOTE | 2024-04-27 07:45 | W.PN.INTV ---
Today's Communication / Plan
Recommendations
Comfort measures later today
Awaiting arrival of other son
Discontinue pressors, antibiotics, medications
Ativan, Dilaudid as needed
BiPAP to be discontinued later today when family ready
Emotional support provided
Assessment
-
Assessment: 73-year-old female with a past medical history of DARLING now diagnosed with ESRD on HD, hypertension, anemia, history of metabolic acidosis and volume overload who presented on 04/12/2024 with difficulty speaking and eating with throat and
neck muscle weakness. Symptoms were ongoing for several months. Neurology initially consulted with suspected probable motor neuron disease based on upper and lower motor neuron symptoms/signs. Nerve conduction and EMS study performed on 04/15/2024
and the F-wave latencies were within normal limits, and the left Hyo glasses muscle showed fasciculations with increased motor unit amplitude with reduced recruitment with a single unit potential. Diagnosis still was unclear, with differential for
ALS + occult malignancy. Acetylcholine receptor binding antibody was negative. Lyme serology was negative. Her ganglioside antibodies were also negative (seen in diverse peripheral neuropathies). She was continued on dialysis during her
hospitalization. Due to failure to thrive, a PEG tube was inserted on 04/20/2024 by GI. Plans were being made for discharge, however on the evening of 04/22/2024 a rapid response was called due to change in mental status with hypoxia and tachypnea.
Blood gas showed severe acute hypercapnic respiratory failure. She was placed onto BiPAP and transferred to the ICU for further care. After she was placed on the BiPAP she became hypotensive and required Levophed peripherally. Bilingual Administrative Assistant
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
Chronic conditions DIRECTOR OF AUDIOLOGY: History of DARLING/ESRD now on dialysis, history of hyperkalemia, uterine procidentia/uterine prolapse, hypertension, anemia, history of hyponatremia, history of pulmonary edema, history of metabolic acidosis and volume overload,
history of COVID-19 (04/11/2023)
Impression:
#Acute respiratory failure with hypoxia and hypercapnia now requiring intermittent BiPAP
#Shock: Unclear etiology, possibly related to hypovolemia as hypotension started after BiPAP initiated
#Failure to thrive
#Hypochloremic, hyponatremia due to reduced PO intake
#History of DARLING now with ESRD on hemodialysis via AV fistula
#Hyperglycemia (HbA1c: 5.3 on 04/12/2024)
#Generalized weakness with upper and lower motor neuron signs concerning for ALS
#History of hypertension
#GERD on PPI at home
#History of COVID-19 (March 2023)
Plan/recommendations:
No change in clinical status
Patient appears to be comfortable, receiving intermittent Dilaudid and Ativan
Remains on BiPAP
Continues to tolerate BiPAP
Concerned regarding ALS noted. Neurology note from 04/16/2024 reviewed. Concern regarding upper and lower motor neuron disease noted
Moving forward,
Extensive discussion with multiple family members
Plans for withdrawal of care today
Awaiting arrival of other son
comfort is a priority
Once family is ready, we will confirm stable respiratory status prior to removing BiPAP
Will discontinue pressors at that time
Continue pressors for now
Persistent hypotension noted
Hemodialysis has been discontinued
Discontinue antibiotics
The above was reviewed at length with critical care nursing, respiratory care, pharmacy
Reviewed above with primary service
Updated son by phone at length 04/27
Also updated multiple family members multiple times throughout the day 04/25
Data:
Brain MRI 04/13/2024: No acute intracranial abnormality noted.
CXR 04/23/2024: No convincing acute cardiopulmonary process.
Subjective Dataa
Subjective Data
Date of Service:
Date of Service: April 27, 2024
Chief Complaint: Bilingual Administrative Assistant Follow Up and Pulmonary Follow Up
Subjective:
Patient appears comfortable to me. She does appear to be not getting every breath on the BiPAP. She receives hydromorphone and Ativan intermittently throughout the day. Reviewed with son at bedside
Objective Data
Data Reviewed
Vital Signs / I&O / Oxygen:
Vital Signs
Temp Pulse Resp BP Pulse Ox
98 F 66 14 108/59 98
04/27/24 04:00 04/27/24 06:30 04/27/24 06:30 04/27/24 06:30 04/27/24 06:30
Intake and Output
04/26/24 04/27/24 04/28/24
06:59 06:59 06:59
Intake Total 837.5 / 867.5 737.8 / 737.8
Output Total 0 / 0 200 / 200
Balance 837.5 / 867.5 537.8 / 537.8
SaO2 98
Nasal Cannula flow liters per 8
minute
Physical Exam
General: Comfortable (On BiPAP)
HEENT: Normocephalic
Cardiovascular: S1-S2, Regular Rhythm, Rub (negative), Peripheral Edema (negative) and Other (Left upper extremity AV fistula)
Respiratory: Wheeze (negative), Rhonchi (negative), Stridor (negative) and Other (Poor inspiratory effort, decreased breath sounds)
GI: Soft, Non Distended, Non Tender and Normal Bowel Sounds
Neurology: Lethargic (Did not awaken during exam)
Skin: Warm, Dry and Cyanosis (negative)
Labs/Micro/Reports
Lab Data
04/26/24 03:05
04/26/24 03:05
Microbiology
04/24/24 04:14 Blood/Venous Blood Culture - Preliminary
No Growth in 72 hours- Final report to follow
[2024-04-27] MEDS: NSS (PRESERVATIVE FREE) 10 ML IV (08:26)
[2024-04-27] MEDS: PROTONIX IV 40 MG IV (08:26)
[2024-04-27] MEDS: HEPARIN 5000 UNITS SC (08:26)
[2024-04-27] MEDS: ProAmatine 5 MG TUBE ×2 (08:27→12:35)
[2024-04-27] MEDS: FLUSH (NSS) 1 FLUSH IV ×4 (08:27→16:48)
--- NOTE | 2024-04-27 09:00 | PTCARENOTE ---
Rec'd pt resting in bed. Unable to open eyes but did nod head slightly to commands. MP but sluggish at 2 mm. Extremities are stiff. Very weak minimal grasp and slightly moved toes to command but unable to lift arms or legs off of the bed. Skin is
pale wm and dry. Foam dressing on buttock and heels. R upper arm dressing is D+I- eccymotic purple around dressing. + 2 generalized anasarca. L upper are AV fistula with + bruit and thrill. Respirs are intact on Bipap 12/5 + 15L with sats of
99-100%. BS are sl coarse and decreased throughout. Monitor SR. + pulses. Abd is round and soft with + hypoactive BS. ABd PEG tube clamped. Meds given. Rectal trumpet intact for loose brown stool. Pt is anuric. R IJ TLC with Levophed- Rec'd pt on 4
mcg and currently 3 mcg- will titrate keeping syst BP >90. Turned and repositioned. Skin and mouth care given. Call rodas in reach.
[2024-04-27] MEDS: LEVOPHED 250 IV (09:35)
--- NOTE | 2024-04-27 10:40 | PTCARENOTE ---
Resting- no changes in assessment. Awaiting family.
[2024-04-27] MEDS: DILAUDID 0.25 MG IV (12:32)
[2024-04-27] MEDS: FLUSH (NSS) 2 FLUSH IV (12:34)
--- NOTE | 2024-04-27 12:40 | PTCARENOTE ---
Pt with minimal response to stimulation. Did have mouth open and sl furrowed brow- CPOT around a 3 although difficult to evaluate. Medicated with Dilaudid 0.25 mg IV. No other changes in assessment. Currently Levophed at 2 mcg. VS as documented. Pts
son in and updated. Dr. Feliciano in and spoke with son. Decision made to transition pt to comfort. Turned and repositioned. Skin and mouth care given.
--- NOTE | 2024-04-27 13:10 | PTCARENOTE ---
Levophed turned off per MD orders for Comfort measures. Pts son at the bedside
--- NOTE | 2024-04-27 13:36 | W.PN.HOSP.TC ---
Today's Communication/Plan
-
Met with patient's son at the bedside.
Family interested in comfort care
Orders placed for comfort care including titration of opiates and benzodiazepines for respiratory distress.
Offer HD.
Off of IV pressor
Assessment / Plan
Assessment / Plan
Impression:
Acute hypercarbic respiratory failure in the settings of progressive neurologic disorder suspected ALS.
Toxic metabolic encephalopathy secondary to hypercarbic respiratory failure.
Profound hypotension in the settings of acidosis requiring vasopressors
Presentation with worsening aphasia and dysphagia as well as weight loss over the last 5 6 months
Aspiration risk
Moderate protein calorie malnutrition BMI 21
Constipation
Other conditions:
End-stage renal disease on hemodialysis since 04/22
Reported nephrotic range proteinuria at the time of initiation of hemodialysis.
GERD.
History of COVID-19 infection.
History of chronic anemia.
Plan:
Acute hypercarbic respiratory failure with toxic metabolic encephalopathy
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
Profound hypotension, shock in the settings of respiratory acidosis.
Persistent agitation with concern for inability to tolerate BiPAP.
Currently remains on BiPAP and obtunded.
Profound hypotension remains on norepinephrine with addition of midodrine
Empiric antibiotics
Aphasia dysphagia with progressive weight loss.
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 Have recommended palliative care evaluation.
Reasonable concern for myasthenia gravis, occult malignancy not limited to thymoma. Paraneoplastic syndrome, ALS
Serologic workup including acetylcholine receptor antibody (negative), CPK (WNL), inflammatory markers (WNL).
CT scan of the chest abdomen and pelvis with no evidence of occult malignancy or mass
MRI of the brain (a CT scan of the head with no acute abnormalities) with no acute abnormalities
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
Neurology plans to speak with family and Ms/ Zofia about ALS diagnosis. Also recommended to have palliative onboard.
Dysphagia with aspiration risk
Speech and swallow evaluation including VSE.
NG tube placed with plan to initiate feeding
PEG placed on 04/20
Tube feeding initiated
Patient is end-stage renal disease required Nepro tube feeding formula given requirements for end-stage renal disease patients for certain electrolyte composition and management.
Discharge plan
End-stage renal disease on hemodialysis since 04/22
Nephrology consultation.
HD schedule TTS.
Ongoing goals of care discussion.
Patient with progressive ALS, admitted with severe aphasia and dysphagia, aspiration risk now developed rapidly progressive hypercarbic respiratory failure with metabolic encephalopathy.
Remains hypotensive requiring pressors.
In addition end-stage renal disease with concern of tolerance to HD given profound hypotension and shock.
CODE STATUS DNR
Awaiting family decision with goal for comfort care as per patient/family directives
Anticipated Discharge: 24 - 48 hours
Subjective/Interval History
-
Date of Service: April 27, 2024
Objective Data
-
Vital Signs:
Vital Signs
Temp Pulse Resp BP Pulse Ox
98.4 F 68 16 96/53 99
04/27/24 11:13 04/27/24 13:00 04/27/24 13:00 04/27/24 13:00 04/27/24 13:00
I&O
04/26/24 04/27/24 04/28/24
06:59 06:59 06:59
Intake Total 837.5 / 867.5 737.8 / 752.8 239.0 / 239.0
Output Total 0 / 0 200 / 200 0 / 0
Balance 837.5 / 867.5 537.8 / 552.8 239.0 / 239.0
Physical Exam
-
General: Well Developed and No Apparent Distress
HEENT: Normocephalic, Atraumatic and Moist Mucous Membranes
Respiratory: Clear to Auscultation
Cardiac: Regular Rhythm and S1/S2; Negative Murmur, Rub or Gallop
GI: Soft, Nontender, Nondistended and Normal Bowel Sounds; Negative Organomegaly
Rectal: Deferred by Provider
Musculoskeletal: No Clubbing, No Cyanosis and No Edema
Skin: Negative Rash
Neuro: Other (Lethargic)
[2024-04-27] MEDS: NSS (PRESERVATIVE FREE) IV (13:48)
[2024-04-27] MEDS: ATIVAN IV (13:49)
[2024-04-27] MEDS: DILAUDID IV (13:49)
--- NOTE | 2024-04-27 13:49 | CM ---
CM following re: discharge planning.
Reviewed pt's chart, met with pt and pt's family at bedside.
Per MD, pt's family agrees with comfort care.
D/C plan: comfort care.
CM is available for emotional support.
--- NOTE | 2024-04-27 14:00 | PTCARENOTE ---
Pts son wants to wait for his brother to arrive prior to taking off the Bipap mask. Pt appears comfortable currently
[2024-04-27] MEDS: DILAUDID 0.5 MG IV ×2 (14:44→17:26)
--- NOTE | 2024-04-27 14:45 | PTCARENOTE ---
Difficult to tell when/if pt is having pain as she does not open her eyes and is unable to perform most commands. Pt not really able to grasp with her hands and tends to keep them to her chest. Was able to slightly move toes when I asked her to
wiggle if she was uncomfortable-which she did. Medicated with Dilaudid 0.5 mg IV. CPOT around a 3 as arms and legs tend to be stiff and at times pt has a sl furrowed brow. No other changes. Awaiting more familly prior to taking pt permantly off
Bipap. Levophed remains off.
--- NOTE | 2024-04-27 16:30 | PTCARENOTE ---
Turned and repositoned. Mouth care given. VS as documented. Family at the bedside- awaiting ok from them to take the Bipap mask off. Pt appears comfortable. Pt had 5 rings on - taken off and given to family.
[2024-04-27] MEDS: NSS (PRESERVATIVE FREE) 0.5 ML IV (16:46)
[2024-04-27] MEDS: ATIVAN 1 MG IV (16:47)
--- NOTE | 2024-04-27 17:00 | PTCARENOTE ---
Multiple family have been in and out over the past 2 hrs. Decision made to remove Bipap mask per Comfort Care. Family request that pt be comfortable and not aware. Pt medicated with Ativan 1 mg IV and then at 1650 pt taken off of the Bipap mask.
Currently sats are 77%. Respirs are shallow. Pt appears comfortable. Support given to family.
--- NOTE | 2024-04-27 17:07 | RESPNOTE ---
pt comfort care, took bipap mask off. family at bedside.
--- NOTE | 2024-04-27 17:30 | PTCARENOTE ---
Pt not responsive but have some gasping respirs. Sats are 28. Medicated with Dilaudid 0.5 mg IV. Family at the bedside and support given.
--- NOTE | 2024-04-27 18:31 | PTCARENOTE ---
Family at the bedside. Pt with no pulse. No respirs. Unable to obtain and O2 sat and no BP. Pt with asystole on the monitor. See strip. Page Ott MOBILE DEVICE ENGINEER made aware. Support given to family.
--- NOTE | 2024-04-27 18:59 | W.PN.DEATH ---
Pronouncement of
-
Called to see patient to pronounce.
No spontaneous heart tones or respirations noted.
Patient not responsive to verbal stimuli.
Patient is pronounced .
Time of : 18:31
Date of : 04/27/24
Cause of : acute hypoxemic hypercapnic respiratory failure
Family Notified: Yes (family at bedside at time of )
--- NOTE | 2024-04-27 19:45 | PTCARENOTE ---
Page Ott PERSONAL SERVICE WORKERS in at [phone] to pronounce pt and currently GOL notified. Family left with belongings.
== END 2024-04-27 18:31 | disposition expired | DRG 56 ==
LOC: ICU 14:24
PROVIDERS: Emergency Medicine; Internal Medicine; Nurse Practitioner Adult Health; Nurse Practitioner Family; Nurse Practitioner Primary Care; Radiology Diagnostic Radiology; Radiology Vascular & Interventional Radiology; Registered Nurse; Specialist; Surgery; ADMITTING PHYSICIAN Hospitalist; ATTENDING PHYSICIAN Internal Medicine; CONSULT PHYSICIAN Internal Medicine; CONSULT PHYSICIAN Internal Medicine Critical Care Medicine; CONSULT PHYSICIAN Internal Medicine Nephrology; CONSULT PHYSICIAN Psychiatry & Neurology Neurology; EMERGENCY PHYSICIAN Emergency Medicine
PROC: 0DH67UZ Insertion of Feeding Device into Stomach, Via Natural or Artificial Opening (ICD-10-PCS; 2024-04-14)
PROC: 5A1D70Z Performance of Urinary Filtration, Intermittent, Less than 6 Hours Per Day (ICD-10-PCS; 2024-04-14)
PROC: 0DH63UZ Insertion of Feeding Device into Stomach, Percutaneous Approach (ICD-10-PCS; 2024-04-20)
PROC: 5A09357 Assistance with Respiratory Ventilation, Less than 24 Consecutive Hours, Continuous Positive Airway Pressure (ICD-10-PCS; 2024-04-22)
PROC: 02H633Z Insertion of Infusion Device into Right Atrium, Percutaneous Approach (ICD-10-PCS; 2024-04-23)
DX: G12.21 Amyotrophic lateral sclerosis (principal); G92.8 Other toxic encephalopathy; J96.01 Acute respiratory failure with hypoxia; J96.02 Acute respiratory failure with hypercapnia; N18.6 End stage renal disease; Z66 Do not resuscitate; Z51.5 Encounter for palliative care; I12.0 Hypertensive chronic kidney disease with stage 5 chronic kidney disease or end stage renal disease; E44.0 Moderate protein-calorie malnutrition; E87.1 Hypo-osmolality and hyponatremia; R47.01 Aphasia; G70.00 Myasthenia gravis without (acute) exacerbation; D63.1 Anemia in chronic kidney disease; K21.9 Gastro-esophageal reflux disease without esophagitis; R63.4 Abnormal weight loss; R62.7 Adult failure to thrive; N81.4 Uterovaginal prolapse, unspecified; K59.00 Constipation, unspecified; R57.1 Hypovolemic shock; E87.8 Other disorders of electrolyte and fluid balance, not elsewhere classified; I95.9 Hypotension, unspecified; G89.29 Other chronic pain; R13.10 Dysphagia, unspecified; Z99.2 Dependence on renal dialysis; Z86.16 Personal history of COVID-19; Z68.21 Body mass index [BMI] 21.0-21.9, adult
CPT/HCPCS: 36556; 36600; 70450; 70553; 71045; 71046; 71260; 74018; 74177; 74230; 76942; 80048; 80051; 80053; 82248; 82533; 82550; 82784; 82805; 82962; 83036; 83605; 83735; 84100; 84155; 84165; 84443; 85014; 85018; 85025; 85027; 85610; 85652; 85730; 86041; 86140; 86334; 86618; 87040; 92523; 92526; 92610; 92611; 93005; 93306; 94660; 95886; 95907; 97116; 97530; 97535; A9575; G0257; J2760; P9047; Q9967